=== PATIENT | male | born 1975 | race Caucasian/White ===

== ENCOUNTER 2021-10-15 10:49 | Day surgery (SDC) | payer OTHER, SELFPAY ==
[2021-10-15 11:24] VITALS: BP 146/91; PULSE 74; RESP 16; TEMP 37.1; O2SAT 98; BMI 44.4
[2021-10-15] MEDS: Lactated Ringers 1,000 ML 15 ML IV (11:27)
--- NOTE | 2021-10-15 12:00 | COLBX_PTH ---
PATIENT: CHING ZACARIAS LOC: EN U#:[id number] AGE/SX: 45/M ROOM: RE10/15/[address]: Dr. Elier Hernandez MD : 1975 BED: DIS: 10/15/2021 SPEC #: [id number] RECD: 10/15/21 13:49 STATUS: CATY RESamira #: [id number] MEAGHAN: 10/15/21 12:[address]: Elier Hernandez DEPT: SURGICAL PATHOLOGY RECD BY: Shivani Eden ENTERED: 10/15/21 14:02 SP TYPE: COLON BX OTHR DR: Dr. Delaney Nunez, Tissues: Ascending colon Procedures: Surgery Specimen Level IV HEADER OPERATION: Colonoscopy (MAC) Polypectomy PRE-OP DIAGNOSIS: Colon Cancer Screening TISSUE SUBMITTED: Ascending colon polyp MICROSCOPIC DIAGNOSIS Ascending colon polyp, polypectomy: Tubular adenoma. Fragments of fecal material. SJ:brent 10/16/2021 MICROSCOPIC DESCRIPTION Slides are reviewed. GROSS DESCRIPTION Received in fixative is one container labeled with the patient's name and designated ascending colon polyp. The specimen consists of a fragment of kennedy-pink polyp measuring 0.5 x 0.5 x 0.3 cm. Also present in the container are multiple fragments of fecal material. The specimen is totally submitted in one cassette. / SJ:rg 10/15/2021 TC:1 CPT: 03064
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
[2021-10-15 13:00] VITALS: BP 122/80; BP 146/91; PULSE 73; RESP 18; TEMP 36.6; O2SAT 97
--- NOTE | 2021-10-15 13:00 | OP.CCLET_ITS ---
10/15/2021 Delaney Nunez [address] [place] [address] Re : Colonoscopy procedure for Moustapha Mello Dear Dr. Nunez This procedure was performed on Friday, October 15, 2021. My impressions and recommendations are as follows: Impressions : - One 5 mm polyp in the ascending colon, removed with a hot snare. Resected and retrieved. - Non-bleeding internal hemorrhoids. - The examination was otherwise normal. Recommendations : - Patient has a contact number available for emergencies. The signs and symptoms of potential delayed complications were discussed with the patient. Return to normal activities tomorrow. Written discharge instructions were provided to the patient. - Resume previous diet. - Continue present medications. - Await pathology results. - Repeat colonoscopy in 5 years for surveillance. - Return to nurse practitioner in 1 week. My findings are described in the full procedure note, which is enclosed. If I can be of further assistance, please feel free to contact me at Doctor phone number(s): , Work: . Sincerely, MD Elier Alba MD 10/15/2021 1:00:01 PM This report has been signed electronically.
--- NOTE | 2021-10-15 13:00 | OP.COLON_ITS ---
Patient Name: Moustapha Mello Procedure Date: 10/15/2021 11:47 AM Date of : 1975 Age: 45 Procedure: Colonoscopy Indications: Screening for colorectal malignant neoplasm Providers: Elier Hernandez MD Medicines: See the Anesthesia note for documentation of the administered medications Patient Profile: This is a 45 year old male. Refer to note in patient chart for documentation of history and physical. Last Colonoscopy: 2006. Complications: No immediate complications. Estimated blood loss: None. Procedure: Pre-Anesthesia Assessment: - Prior to the procedure, a History and Physical was performed, and patient medications and allergies were reviewed. The patient's tolerance of previous anesthesia was also reviewed. The risks and benefits of the procedure and the sedation options and risks were discussed with the patient. All questions were answered, and informed consent was obtained. Prior Anticoagulants: The patient has taken no previous anticoagulant or antiplatelet agents. ASA Grade Assessment: III - A patient with severe systemic disease. After reviewing the risks and benefits, the patient was deemed in satisfactory condition to undergo the procedure. After I obtained informed consent, the scope was passed under direct vision. Throughout the procedure, the patient's blood pressure, pulse, and oxygen saturations were monitored continuously. The adult colonoscope was introduced through the anus and advanced to the cecum, identified by appendiceal orifice and ileocecal valve. The colonoscopy was performed without difficulty. The patient tolerated the procedure well. The quality of the bowel preparation was good. The ileocecal valve, appendiceal orifice, and rectum were photographed. Scope In: 12:43:28 PM Scope Withdrawal Time 0 hours 8 minutes 58 seconds Scope Out: 12:55:34 PM Total Procedure Duration Time 0 hours 12 minutes 6 seconds Findings: A 5 mm polyp was found in the ascending colon. The polyp was sessile. The polyp was removed with a hot snare. Resection and retrieval were complete. Non-bleeding internal hemorrhoids were found during retroflexion. The hemorrhoids were mild and small. The exam was otherwise without abnormality. Impression: - One 5 mm polyp in the ascending colon, removed with a hot snare. Resected and retrieved. - Non-bleeding internal hemorrhoids. - The examination was otherwise normal. Recommendation: - Patient has a contact number available for emergencies. The signs and symptoms of potential delayed complications were discussed with the patient. Return to normal activities tomorrow. Written discharge instructions were provided to the patient. - Resume previous diet. - Continue present medications. - Await pathology results. - Repeat colonoscopy in 5 years for surveillance. - Return to nurse practitioner in 1 week. Procedure Code(s): --- Professional --- 33479, Colonoscopy, flexible; with removal of tumor(s), polyp(s), or other lesion(s) by snare technique Diagnosis Code(s): --- Professional --- Z12.11, Encounter for screening for malignant neoplasm of colon D12.2, Benign neoplasm of ascending colon K64.8, Other hemorrhoids CPT copyright 2017 [employer]. All rights reserved. The codes documented in this report are preliminary and upon manager paper review may be revised to meet current compliance requirements. MD Elier Alba MD 10/15/2021 1:00:01 PM This report has been signed electronically. Number of Addenda: 0 Note Initiated On: 10/15/2021 11:47 AM
[2021-10-15 13:05] VITALS: BP 114/79; BP 146/91; PULSE 68; RESP 16; O2SAT 95
[2021-10-15 13:10] VITALS: BP 130/86; BP 146/91; PULSE 73; RESP 16; O2SAT 99
[2021-10-15 13:15] VITALS: BP 129/83; BP 146/91; PULSE 65; RESP 16; TEMP 36.6; O2SAT 99
[2021-10-15 13:38] VITALS: BP 146/91
== END 2021-10-15 13:58 | disposition home or self-care (01) ==
LOC: EN 10:55 → AC 10:57
PROVIDERS: PCP Internal Medicine; Referring Provider Internal Medicine; Visit Provider Surgery
PROC: 0DJD8ZZ Inspection of Lower Intestinal Tract, Via Natural or Artificial Opening Endoscopic (ICD-10-PCS; CPT 45378; principal; 2021-10-15 11:55)
DX: Z12.11 Encounter for screening for malignant neoplasm of colon (principal); E66.01 Morbid (severe) obesity due to excess calories; Z68.41 Body mass index [BMI] 40.0-44.9, adult; D12.2 Benign neoplasm of ascending colon; K64.8 Other hemorrhoids; Z86.16 Personal history of COVID-19
CPT/HCPCS: 45385; 87426; 88305; J7120; J2405

== ENCOUNTER 2024-06-03 13:13 | Inpatient (IN) | payer OTHER, SELFPAY ==
[2024-06-03] VITALS (11 sets, daily range): BP systolic 129–191; BP diastolic 82–116; PULSE 73–109; RESP 13–20; TEMP 36.6–36.9; O2SAT 93–100; BMI 49.2; BMI 48.0
--- NOTE | 2024-06-03 13:25 | RAD_ITS ---
STUDY: X-RAY - RIGHT FEMUR REASON FOR STUDY: Male, 48 years old. fall TECHNIQUE: 4 view(s) of the femur. COMPARISON: None. FINDINGS: Normal visualized femur. Normal visualized soft tissue structure. There is no demonstrated fracture or destructive process. RAD/Femur Min 2 Views IMPRESSION: Normal x-ray examination of the femur. Electronically Signed: Vic Jacobsen MD at 15:26 EST ,
--- NOTE | 2024-06-03 13:25 | CT_ITS ---
STUDY: CT CERVICAL SPINE WITHOUT CONTRAST REASON FOR EXAM: Male, 48 years old. fall PT WAS ON A LADDER WHEN IT SLID OUT FROM UNDER HIM. PT C/O R HIP AND LOWER BACK PAIN. RADIATION DOSAGE (If Supplied By Facility): CTDIvol = ( 41.30 ) mGy, DLP = ( 1030.30 ) mGycm TECHNIQUE: High resolution transaxial imaging was performed without contrast material. Sagittal and coronal images were reconstructed. Individualized dose optimization techniques were used for this CT. COMPARISON: None FINDINGS: Normal craniovertebral junction. Normal anterior atlantoaxial articulation. Normal odontoid process. There is reversal of the normal cervical lordosis. No demonstrated fracture or compression deformity or displaced fragment. No demonstrated jumped facets. Moderate to severe multilevel degenerative changes are present. Severe central canal stenosis and cord compression at C5-C6 due to a prominent posterior disc osteophyte complex. Normal visualized soft tissue structures. CT/Spine Cervical without Contras IMPRESSION: Multilevel degenerative changes, as described above. Electronically Signed: Vic Jacobsen MD at 15:24 EST Reading Location ID and State: [address] [place] [address] , Service support ,
--- NOTE | 2024-06-03 13:25 | CT_ITS ---
STUDY: CT CHEST, ABDOMEN T PELVIS WITH CONTRAST REASON FOR EXAM: Male, 48 years old. trauma PT WAS ON A LADDER WHEN IT SLID OUT FROM UNDER HIM. PT C/O R HIP AND LOWER BACK PAIN. RADIATION DOSAGE (If Supplied By Facility): CTDIvol = ( 51.57 ) mGy, DLP = ( 3371.28 ) mGycm TECHNIQUE: Transaxial imaging was performed following intravenous administration of IV 100mL Isovue-370. The protocol utilizes one or more of the following dose reduction techniques: automated exposure control, adjustment of mA and/or kV according to patient size,and/or use of iterative reconstruction technique. COMPARISON: FINDINGS: CHEST No visualized sternal or displaced rib fractures or pneumothorax or consolidation. Mild diffuse groundglass edema is present bilaterally. No pleural effusion is present.. There is no demonstrated pleural abnormality. Normal heart and pericardium. No demonstrated calcifications of the coronary arteries. Normal mediastinum. Normal hilar regions. Normal unenhanced pulmonary arteries. There is atherosclerotic calcification of the aortic arch with tortuosity and elongation of the aortic arch and descending thoracic aorta. There are multi-level degenerative changes of the thoracic spine. ABDOMEN No visualized acute injury of the organs. No free air or free fluid or pneumoperitoneum is present. There is decreased attenuation of the liver consistent with steatosis. Normal gallbladder and extrahepatic biliary system. Normal spleen. Normal pancreas. Normal bilateral adrenal glands. Normal right kidney. Normal left kidney. Normal visualized stomach. Normal small intestine. There are multiple colonic diverticula consistent with diverticulosis. The appendix is visualized and appears normal. Normal abdominal aorta. Normal inferior vena cava. Normal retroperitoneum. Normal abdominal wall. There are diffuse degenerative changes of the visualized lumbar spine. PELVIS Normal urinary bladder. Normal visualized small intestine. Normal visualized colon. There is no pelvic fluid. There is no pelvic lymphadenopathy or mass lesion. Normal visualized pelvic arteries. No visualized fracture of the hips or pelvic bony structures. Normal abdominal wall. There are diffuse degenerative changes of the visualized lumbar spine. CT/CT Chest, Abd, Pel w/Contrast IMPRESSION: 1. Chest: Mild diffuse groundglass edema. No consolidation or pneumothorax. 2. Abdomen and pelvis: No visualized acute injury of the organs. No free air or free fluid or pneumoperitoneum is present. Electronically Signed: Vic Jacobsen MD at 15:08 EST ,
--- NOTE | 2024-06-03 13:25 | CT_ITS ---
STUDY: CT BRAIN WITHOUT CONTRAST REASON FOR EXAM: Male, 48 years old. PT WAS ON A LADDER WHEN IT SLID OUT FROM UNDER HIM. PT C/O R HIP AND LOWER BACK PAIN. RADIATION DOSAGE (If Supplied By Facility): CTDIvol = ( 44.99 ) mGy, DLP = ( 846.73 ) mGycm TECHNIQUE: Transaxial CT imaging of the brain was performed without administration of intravenous contrast material. Individualized dose optimization techniques were used for this CT. COMPARISON: None. FINDINGS: No visualized skull fracture or subdural hemorrhage. Prominent cisterna magna which is a normal variant. No visualized extra-axial fluid collection. Normal soft tissue structures. Normal calvarium. Normal size ventricles and extra-axial spaces for the patient''s age. Normal white matter tracts of the cerebral hemispheres. Normal basal ganglia and thalami. Normal brainstem. There is mild cerebellar atrophy. There is no intracranial hemorrhage. There are no findings of an acute ischemic infarction. Normal visualized paranasal sinuses. CT/Brain/Head without Contrast IMPRESSION: 1. No acute process of the brain. Electronically Signed: Vic Jacobsen MD at 15:12 [facility] ,
--- NOTE | 2024-06-03 13:28 | EDS_ITS ---
HPI History of Present Illness Chief Complaint: Trauma Detail of Chief Complaint: Fall off ladder Informant: patient Narrative Narrative: Patient presents the emergency department after falling off of a ladder today. He presents via EMS. Patient states that he was near the top of the ladder getting on a roof when he fell off the ladder and kind of landed with his right leg between the rungs of the ladder. He denies loss of consciousness. He complains of pain in his low back and right upper leg. He is not on blood thinners. He has no medical history. He denies neck pain. Denies chest pain. Does have some mild abdominal pain. PFSH PFSH Medical History Alcohol use CPAP (continuous positive airway pressure) dependence Non-smoker Home Medications ?Medication ?Instructions ?Recorded ?Last Taken ?Type ascorbic acid (vitamin C) 500 mg 500 mg PO DAILY 06/03/24 06/03/24 History chewable tablet (Acerola C) hydrocodone-acetaminophen 5-325mg 1 tab PO Q4H PRN PRN Pain 2 days 06/03/24 Unknown Rx 5mg-325mg #10 TABLETS naproxen 500 mg tablet (Naprosyn) 500 mg PO BID PRN pain #20 tabs 06/03/24 Un known Rx Allergy/AdvReac Type Severity Reaction Status Date / Time Penicillins (PCN) Allergy Other Verified 10/15/21 11:24 Surgical History (Updated 10/11/21 @ 11:52 by Abbey Trinh) Hx of colonoscopy Hx of appendectomy Social History Smoking Status: Never smoker ROS ROS ED Review of Systems ROS Unobtainable: other Constitutional Constitutional ED: Reports lethargy; Denies chills, fever(s), sweats or weight loss Eyes Eyes: Denies blurry vision, change in vision or diplopia ENT ENT ED: Denies rhinorrhea or sore throat Cardiovascular Cardiovascular: Denies chest pain, orthopnea or racing heartbeat Respiratory/Chest Respiratory/Chest: Denies cough, dyspnea, dyspnea on exertion, orthopnea or sputum Gastrointestinal Gastrointestinal: Reports abdominal pain; Denies diarrhea, nausea or vomiting Genitourinary Genitourinary ED: Denies dysuria, hematuria or urinary frequency Musculoskeletal Musculoskeletal: Reports back pain and other Details: Right upper leg pain ; Denies arthralgias, myalgias or neck pain Integumentary Denies abscess, Abrasions or rash Neurologic Neurologic: Denies headache(s) or weakness Psychiatric Psychiatric: Denies anxiety, depression or suicidal thoughts Endocrine Endocrinology: Denies polydipsia, polyphagia or polyuria Hematologic/Lymphatic Hematologic/Lymphatic: Denies easy bleeding, easy bruising or lymphadenopathy Allergic/Immunologic Allergic/Immunologic ED: Denies mouth swelling, tongue swelling or urticaria EXAM Physical Exam Const Vital Signs: 06/03/24 13:24 06/03/24 13:29 06/03/24 14:49 Temperature 97.9 F Temperature Source Oral Pulse Rate 92 88 Respiratory Rate 16 20 H Respiratory Effort Normal Non-Labored Respiratory Depth Normal Respiratory Pattern Normal Blood Pressure 143/90 H 160/94 H Blood Pressure Mean 107 116 Pulse Ox 96 96 98 Oxygen Delivery Method Room Air Room Air Room Air 06/03/24 15:12 Temperature Temperature Source Pulse Rate 73 Respiratory Rate 13 Respiratory Effort Respiratory Depth Respiratory Pattern Blood Pressure 191/116 H Blood Pressure Mean 141 Pulse Ox 97 Oxygen Delivery Method Room Air Positive well nourished and well developed General Appearance ED: well developed and NAD HEENT Reports TM's clear and moist mucous membranes HEENT Narrative: No external evidence of trauma to his head. normocephalic and atraumatic; Negative for trauma or tenderness Tympanic Membrane ED: Yes TM's clear Eyes PERRL and EOMs intact bilaterally General Eye ED: Negative for pale conjunctiva or scleral icterus Neck no lymphadenopathy, supple and no JVD General: Negative for tenderness Chest Wall inspection of chest normal and palpation of chest normal Chest: Negative for tenderness Resp normal respiratory effort and clear to auscultation bilaterally Effort and Inspection: Negative for respiratory distress or pain with movement Auscultation: Negative for rhonchi, wheezes or diminished lung sounds Cardio regular rate, regular rhythm, S1 normal heart sound, S2 normal heart sound and no murmurs Peripheral Pulses: pulses 2+ throughout GI normal to inspection, nondistended, normoactive bowel sounds, soft to palpation, non-distended and no masses GI Narrative: Mild diffuse tenderness. There is no rebound, rigidity, peritoneal signs. No mass palpated Back/Spine no CVA tenderness and no thoracic nor lumbar tenderness Extremity Extremity Narrative: Right lower extremity-there is no shortening or external rotation. Does have pain to palpation over the right hip and proximal femur. Neurovascular intact distally. General Extremety ED: Negative for edema General Extremity: Negative for edema Neuro oriented x3, CN's II-XII intact bilaterally, no sensory deficits noted and gait normal Sensorium / Orientation: awake, alert, oriented to person, oriented to place and oriented to time Motor Exam: strength 5/5 throughout and strength abnormal Psych mental status grossly normal Skin no rashes or lesions noted and no wounds MDM MDM MDM Narrative Medical decision making narrative: Patient with fall off ladder about 8 to 10 feet. Complaining of right low back pain and right upper leg pain. Clinically looks well. No significant evidence of trauma. CT scan of the brain without contrast was unremarkable. CT scan of C-spine showed degenerative changes but no fractures. CT scan of the chest abdomen pelvis also without any evidence for traumatic injuries. CBC with differential count 11.8 with hemoglobin 15.5 and platelet count of 307. Chemistries unremarkable. LFTs were normal. Lipase normal at 31. Patient was medicated initially with morphine and Zofran. Once all testing was returned I did have patient's stand. He is continue to have pain in his right low back and right upper leg. I do not appreciate any evidence of ecchymosis or bruising or hematomas. Will give him another dose of morphine. Will discharge to home with a prescription for [place]. Advised to follow-up with primary care physician within the next 3 to 5 days. Will give him referral to no doc. after attempting to ambulate patient he is having a hard time bearing any weight and ambulating. Patient does not feel like he can manage at home and currently lives alone as his recently . Will discuss with hospitalist to admit for observation and pain management. Lab Data Attestation: I reviewed the patient's lab results. Labs: Laboratory Results - last 24 hr 06/03/24 13:40 WBC 11.8 H RBC 5.21 Hgb 15.5 Hct 45.7 MCV 87.7 MCH 29.8 MCHC 33.9 RDW Std Deviation 39.3 RDW Coeff of Manuelito 12.3 Plt Count 307 MPV 8.8 Immature Gran % (Auto) 2.300 H Neut % (Auto) 74.5 H Lymph % (Auto) 15.0 L Centre % (Auto) 7.4 Eos % (Auto) 0.3 Baso % (Auto) 0.5 Absolute Neuts (auto) 8.8 H Absolute Lymphs (auto) 1.76 Nucleated RBC % 0 Sodium 137 Potassium 4.4 Chloride 106 Carbon Dioxide 27.0 Anion Gap 4 L BUN 10 Creatinine 0.92 Estim Creat Clear Calc 165.11 Est GFR (MDRD) Af Amer 112 Est GFR (MDRD) Non-Af 93 BUN/Creatinine Ratio 10.8 Glucose 110 H Calcium 9.5 Total Bilirubin 0.30 AST 28 ALT 45 Alkaline Phosphatase 55 Total Protein 7.4 Albumin 3.6 Globulin 3.8 Albumin/Globulin Ratio 0.9 Lipase 31 Radiography Diagnostic Testing: Clinical Impression(s) from Imaging Studies Brain CT 06/03/24 13:25 IMPRESSION: 1. No acute process of the brain. Electronically Signed: Vic Jacobsen MD at 15:12 EST Reading Location ID and State: [[employer] / [place] , Service support , Cervical Spine CT 06/03/24 13:25 IMPRESSION: Multilevel degenerative changes, as described above. Electronically Signed: Vic Jacobsen MD at 15:24 EST Reading Location ID and State: [[employer] [place] , Service support , Chest/Abdomen/Pelvis CT 06/03/24 13:25 IMPRESSION: 1. Chest: Mild diffuse groundglass edema. No consolidation or pneumothorax. 2. Abdomen and pelvis: No visualized acute injury of the organs. No free air or free fluid or pneumoperitoneum is present. Electronically Signed: Vic Jacobsen MD at 15:08 EST Reading Location ID and State: [[employer] [place] , Service support , Femur X-Ray 06/03/24 13:25 IMPRESSION: Normal x-ray examination of the femur. Electronically Signed: Vic Jacobsen MD at 15:26 EST Reading Location ID and State: [id number] [address] [employer] , Service support , 2 view x-rays of the right femur obtained interpreted by myself as no evidence of fracture or dislocation. Radiology in agreement. Discharge Plan Dx/Rx/DC Orders Clinical Impression: Fall, Back contusion, Contusion of hip, right Disposition Disposition: Acute Care Hospital [facility]
[2024-06-03 13:48] LABS: Absolute Lymphocyte Count 1.76 X10^3/uL (0.83-4.51); Absolute Neutrophil Count 8.8 X10^3/uL (2.0-7.7); Basophil# 0.06 X10^3/uL; Basophil% 0.5 % (0-1); Eosinophil# 0.04 X10^3/uL; Eosinophils% 0.3 % (0-5); Hematocrit 45.7 % (40-54); Hemoglobin 15.5 g/dL (13.0-16.5); Lymphocyte # 1.76 X10^3/ul (0.83-4.51); Mean Corp Hgb Conc 33.9 g/dL (32-36); Mean Corpuscular Hgb 29.8 pg (27.0-32.0); Mean Corpuscular Volume 87.7 fL (80-94); Mean Platelet Vol. 8.8 fl (6.2-12.0); Monocyte# 0.87 X10^3/uL; Monocyte% 7.4 % (0-10); NRBC Flagged by Analyzer 0 % (0-5); Neutrophil # 8.77 X10^3/uL (2.7-7.7); Neutrophil % 74.5 % (47-70); Platelet Count 307 K/mm3 (150-450); RBC Distribution Width CV 12.3 % (11.6-14.6); RBC Distribution Width SD 39.3 fl (35.1-43.9); Red Blood Count 5.21 M/mm3 (4.6-6.2); White Blood Count 11.8 K/mm3 (4.4-11.0)
[2024-06-03] MEDS: 0.9% Normal Saline (1000mL) 1,000 ML 1000 ML IV (13:48)
[2024-06-03] MEDS: Ondansetron 4 MG/2 ML Vial IV (13:50)
[2024-06-03] MEDS: Morphine 4 MG/ML Syringe IV ×2 (13:50→15:57)
[2024-06-03 14:02] LABS: ALB/GLOB Ratio 0.9 RATIO (0.9-2.4); AST(SGOT) 28 U/L (15-37); Alanine Aminotransfer ALT/SGPT 45 U/L (16-61); Albumin, Serum 3.6 g/dL (3.2-5.0); Alkaline Phosphatase 55 U/L (45-117); Anion Gap 4 (5-15); BUN 10 mg/dL (7-18); BUN/Creat Ratio 10.8 RATIO (10-20); Calcium,Total 9.5 mg/dL (8.5-10.1); Chloride 106 mmol/L (98-107); Creatinine, Serum 0.92 mg/dL (0.70-1.30); EST Glomerular Filtration Rate 93 mL/min (>60); Est Glom Filt Rate - Afr Amer 112 mL/min (>60); Estimated Creatinine Clearance 165.11 ml/min; Globulin 3.8 g/dL (2.2-4.2); Glucose 110 mg/dL (74-106); Lipase 31 U/L (13-75); Potassium 4.4 mmol/L (3.5-5.1); Protein, Total 7.4 g/dL (6.4-8.2); Sodium Level 137 mmol/L (136-145)
--- NOTE | 2024-06-03 16:46 | PCM.HP.STD ---
HPI - General General Date of Admission: 06/03/24 Date of Service: 06/03/24 Chief Complaint: Pain after fall HPI Narrative CHING ZACARIAS, is a 48 M with no significant past medical history who presented to [facility] ED 06/03/2024 after falling off of a ladder. He fell roughly 8 feet when he and stepped onto the roof but the ladder slipped out from under him and he subsequently fell on the ladder, all of his scans were normal however due to pain and difficulty ambulating hospitalist contacted for admission for pain control and physical therapy. Patient evaluated at bedside and reports history as above, he does have some right sided back pain and pain into right leg. Had had a little bit of tingling in his toes but none at this time. Does have difficulty moving due to that. Contacted orthospine and CT scan appears to have L3 superior endplate fracture however it is unclear the chronicity of this. Plan to treat with conservative management and will obtain MRI. Patient is ROS otherwise completely negative [facility] Medical History Alcohol use CPAP (continuous positive airway pressure) dependence Non-smoker Home Medications ?Medication ?Instructions ?Recorded ?Last Taken ?Type ascorbic acid (vitamin C) 500 mg 500 mg PO DAILY 06/03/24 06/03/24 History chewable tablet (Acerola C) hydrocodone-acetaminophen 5-325mg 1 tab PO Q4H PRN PRN Pain 2 days 06/03/24 Unknown Rx 5mg-325mg #10 TABLETS naproxen 500 mg tablet (Naprosyn) 500 mg PO BID PRN pain #20 tabs 06/03/24 Unknown Rx Allergy/AdvReac Type Severity Reaction Status Date / Time Penicillins (PCN) Allergy Other Verified 10/15/21 11:24 Surgical History (Updated 10/11/21 @ 11:52 by Abbey Trinh) Hx of appendectomy Hx of colonoscopy Social History Smoking Status: Never smoker ROS ROS Narrative General: Denies fever/chills HENT: Denies headache, denies stuffy nose, denies sore throat EYES: Denies changes in vision Resp: Denies cough, denies shortness of breath Cardiac: Denies chest pain GI: Denies abdominal pain, denies changes in bowel, denies nausea/vomiting : Denies changes in urination Extremity: Denies swelling MSK: Some low back pain and right leg Neuro: Denies any numbness/tingling at this time Heme: Denies any bleeding or bruising Skin: Denies rashes Psychiatric: No complaints voiced Vital Signs Vital Signs Vital Signs: 06/03/24 13:24 06/03/24 13:29 06/03/24 14:49 Temperature 97.9 F Temperature Source Oral Pulse Rate 92 88 Respiratory Rate 16 20 H Respiratory Effort Normal Non-Labored Respiratory Depth Normal Respiratory Pattern Normal Blood Pressure 143/90 H 160/94 H Blood Pressure Mean 107 116 Pulse Ox 96 96 98 Oxygen Delivery Method Room Air Room Air Room Air 06/03/24 15:12 06/03/24 16:00 Temperature 98.2 F Temperature Source Pulse Rate 73 109 H Respiratory Rate 13 18 Respiratory Effort Respiratory Depth Respiratory Pattern Blood Pressure 191/116 H 160/90 H Blood Pressure Mean 141 113 Pulse Ox 97 100 Oxygen Delivery Method Room Air Weight Weight: 173.9 kg Body Mass Index (BMI) 49.2 Physical Exam Narrative General: Alert, oriented, no apparent distress HEENT: Atraumatic, normocephalic Eyes: Anicteric, normal conjunctiva, extraocular movements grossly intact Neck: Supple Respiratory: Clear to auscultation bilaterally, normal respiratory effort Cardiovascular: Regular rate and rhythm GI: Soft, nontender, nondistended Extremities: No edema Musculoskeletal: Patient able to rotate leg on the right both ways and can flex at the hip however somewhat limited due to pain. Unable to palpate lumbar spine as patient had difficulty sitting up in bed to allow this due to pain Neuro: No overt focal neurological deficits on my exam Skin: No rashes appreciated Psych: Cooperative Results Lab / Micro Data 06/03/24 13:40 06/03/24 13:40 Labs: Laboratory Results - last 24 hr 06/03/24 13:40: WBC 11.8 H, RBC 5.21, Hgb 15.5, Hct 45.7, MCV 87.7, MCH 29.8, MCHC 33.9, RDW Std Deviation 39.3, RDW Coeff of Manuelito 12.3, Plt Count 307, MPV 8.8, Immature Gran % (Auto) 2.300 H, Neut % (Auto) 74.5 H, Lymph % (Auto) 15.0 L, [place] % (Auto) 7.4, Eos % (Auto) 0.3, Baso % (Auto) 0.5, Absolute Neuts (auto) 8.8 H, Absolute Lymphs (auto) 1.76, Nucleated RBC % 0, Sodium 137, Potassium 4.4, Chloride 106, Carbon Dioxide 27.0, Anion Gap 4 L, BUN 10, Creatinine 0.92, Estim Creat Clear Calc 165.11, Est GFR (MDRD) Af Amer 112, Est GFR (MDRD) Non-Af 93, BUN/Creatinine Ratio 10.8, Glucose 110 H, Calcium 9.5, Total Bilirubin 0.30, AST 28, ALT 45, Alkaline Phosphatase 55, Total Protein 7.4, Albumin 3.6, Globulin 3.8, Albumin/Globulin Ratio 0.9, Lipase 31 Imaging Radiology Impression Brain CT 06/03/24 13:25 IMPRESSION: 1. No acute process of the brain. Electronically Signed: Vic Jacobsen MD at 15:12 EST Reading Location ID and State: [facility] / [place] , Service support , Cervical Spine CT 06/03/24 13:25 IMPRESSION: Multilevel degenerative changes, as described above. Electronically Signed: iVc Jacobsen MD at 15:24 EST , Chest/Abdomen/Pelvis CT 06/03/24 13:25 IMPRESSION: 1. Chest: Mild diffuse groundglass edema. No consolidation or pneumothorax. 2. Abdomen and pelvis: No visualized acute injury of the organs. No free air or free fluid or pneumoperitoneum is present. Electronically Signed: Vic Jacobsen MD at 15:08 EST , Femur X-Ray 06/03/24 13:25 IMPRESSION: Normal x-ray examination of the femur. Electronically Signed: Vic Jacobsen MD at 15:26 EST , Assessment & Plan Assessment/Plan (1) Fall: PLAN: Plan #Fall w/ back pain -Patient status post fall off of ladder with some back pain worse on the right -Review of CT chest/abdomen/pelvis appears to possibly have an L3 superior endplate fracture however it is unclear if this is new or old -Will obtain MRI tomorrow -Supportive care, pain control -Lidocaine patch -PT/OT -Case management #Morbid obesity -BMI documented as 49.2 kg/m? at time of admission -Complicates treatment, prognosis, outcomes -Recommend weight loss and lifestyle changes #DVT ppx: SCDS Cristela Cifuentes MD Time spent in the patient's overall evaluation, decision-making process, review of diagnostic data, adjustment of management, discussion with other providers, nursing and ancillary staff involved in patient's care documentation, 61 Minutes Charges/Coding Visit Charges Inpatient E&M: 92456 Init Hosp L2
[2024-06-03] MEDS: Ketorolac 15 MG/ML Vial IV (17:18)
[2024-06-03] MEDS: HYDROmorphone 1 MG/ML Syringe IV ×3 (17:19→21:56)
--- NOTE | 2024-06-03 17:38 | ED.RN ---
Pt having increased pain, unable to sit on edge of bed or even attempt to bear weight. Pt states he is unable to lift right leg, unsure if inability is from pain. ED MD and hospitalist made aware, pt will go to [facility] [place].
--- NOTE | 2024-06-03 17:44 | MRI_ITS ---
ACR Level 3 findings have been noted. An addendum which confirms receipt of the report will follow. EXAM: MR LUMBAR SPINE WITHOUT INTRAVENOUS CONTRAST CLINICAL INDICATION: Back pain after fall TECHNIQUE: Multiplanar and multisequence MR images of the lumbar spine without intravenous contrast. COMPARISON: CT Chest abdomen pelvis on the same date. FINDINGS: VERTEBRAE: There is an acute superior endplate compression fracture of L3 as better demonstrated on comparison CT. Associated marrow enhancement. No retropulsion of the posterior cortex and no significant signal abnormality in the pedicle/posterior elements. Less than 25% vertebral body height loss. L2 superior endplate compression fracture with less than 25% vertebral body height loss. Edema indicates that this is acute. No retropulsion of the posterior cortex or involvement of the pedicle/posterior elements. L1 superior endplate compression deformity without edema is felt to be chronic. Less than 25% vertebral body height loss. Prominent Schmorl''s node at the superior endplate of L1. 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 There is preservation of the normal lumbar lordosis. SPINAL CORD: No significant abnormality. Normal position and signal intensity of the conus medullaris. SOFT TISSUES: No significant abnormality. DISCS/SPINAL CANAL/NEURAL FORAMINA: T12-L1: Disc bulge and mild bilateral facet arthrosis. No significant spinal canal or neural foraminal stenosis. L1-L2: Disc bulge with superimposed right central disc herniation and moderate bilateral facet arthrosis. Moderate spinal canal stenosis is exacerbated by mass effect upon the thecal sac due to epidural fat. Mild bilateral neural foraminal narrowing. L2-L3: Mild spinal canal stenosis in part due to a disc bulge, facet arthrosis, and prominent epidural fat. No significant neural foraminal narrowing. L3-L4: L3-4: Disc bulge and severe bilateral facet arthrosis. Mild spinal canal stenosis and mild bilateral neural foraminal narrowing. L4-L5: Disc bulge and superimposed central disc herniation with moderate facet arthrosis and ligamentum flavum thickening. Moderate to severe stenosis of the thecal sac and overall mild spinal canal narrowing. Moderate left and mild right neural foraminal stenosis. Apparent impingement of the bilateral traversing L5 nerve roots. L5-S1: Severe bilateral facet arthrosis and disc bulge with superimposed right foraminal to extraforaminal disc herniation. Mild spinal canal stenosis and mild right greater than left neural foraminal narrowing. MRI/Spine Lumbar (Routine) IMPRESSION: 1. There is an acute superior endplate compression fracture of L3 as better demonstrated on comparison CT. Associated marrow enhancement. No retropulsion of the posterior cortex and no significant signal abnormality in the pedicle/posterior elements. Less than 25% vertebral body height loss. 2. L2 superior endplate compression fracture with less than 25% vertebral body height loss. Edema indicates that this is acute. No retropulsion of the posterior cortex or involvement of the pedicle/posterior elements. 3. L1 superior endplate compression deformity without edema is felt to be chronic. Less than 25% vertebral body height loss. Prominent Schmorl''s node at the superior endplate of L1. 4. Multilevel degenerative changes in the lumbar spine resulting in spinal canal and neural foraminal stenosis at multiple levels exacerbated by epidural lipomatosis. Bilateral L5 nerve root impingement. 5. 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 Electronically Signed: Aden Savage DO at 20:30 EST ,
[2024-06-03] MEDS: Acetaminophen 500 MG Tablet 1000 MG PO (22:38)
[2024-06-03] MEDS: HYDROmorphone 0.5 MG/0.5 ML SYRINGE IV (23:46)
[2024-06-03] MEDS: 0.9% Saline Lock 10 ML Syringe IV (23:47)
[2024-06-04] MEDS: 0.9% Saline Lock 10 ML Syringe IV ×2 (03:18→12:00)
[2024-06-04] MEDS: Ketorolac 30 MG/ML Syringe IV ×3 (03:18→17:44)
[2024-06-04 03:23] VITALS: BP 127/79; PULSE 91; RESP 16; TEMP 36.6; O2SAT 97
[2024-06-04] MEDS: oxyCODONE 5 MG Tablet PO ×4 (05:41→21:36)
[2024-06-04] MEDS: Acetaminophen 500 MG Tablet 1000 MG PO ×3 (05:42→21:24)
[2024-06-04 05:58] LABS: Absolute Lymphocyte Count 1.86 X10^3/uL (0.83-4.51); Absolute Neutrophil Count 8.8 X10^3/uL (2.0-7.7); Basophil# 0.03 X10^3/uL; Basophil% 0.3 % (0-1); Eosinophil# 0.02 X10^3/uL; Eosinophils% 0.2 % (0-5); Hematocrit 41.6 % (40-54); Hemoglobin 13.5 g/dL (13.0-16.5); Lymphocyte # 1.86 X10^3/ul (0.83-4.51); Lymphocyte % 15.7 % (19-41); Mean Corp Hgb Conc 32.5 g/dL (32-36); Mean Corpuscular Hgb 28.9 pg (27.0-32.0); Mean Corpuscular Volume 89.1 fL (80-94); Monocyte# 1.03 X10^3/uL; Monocyte% 8.7 % (0-10); NRBC Flagged by Analyzer 0 % (0-5); Neutrophil # 8.83 X10^3/uL (2.7-7.7); Neutrophil % 74.8 % (47-70); Platelet Count 288 K/mm3 (150-450); RBC Distribution Width CV 12.6 % (11.6-14.6); RBC Distribution Width SD 41.1 fl (35.1-43.9); Red Blood Count 4.67 M/mm3 (4.6-6.2); White Blood Count 11.8 K/mm3 (4.4-11.0)
[2024-06-04 06:57] LABS: ALB/GLOB Ratio 0.9 RATIO (0.9-2.4); AST(SGOT) 24 U/L (15-37); Alanine Aminotransfer ALT/SGPT 35 U/L (16-61); Albumin, Serum 3.1 g/dL (3.2-5.0); Alkaline Phosphatase 48 U/L (45-117); Anion Gap 4 (5-15); BUN 12 mg/dL (7-18); BUN/Creat Ratio 13.2 RATIO (10-20); Calcium,Total 8.7 mg/dL (8.5-10.1); Chloride 103 mmol/L (98-107); Creatinine, Serum 0.91 mg/dL (0.70-1.30); EST Glomerular Filtration Rate 94 mL/min (>60); Est Glom Filt Rate - Afr Amer 114 mL/min (>60); Estimated Creatinine Clearance 160.05 ml/min; Globulin 3.4 g/dL (2.2-4.2); Glucose 167 mg/dL (74-106); Potassium 4.3 mmol/L (3.5-5.1); Protein, Total 6.5 g/dL (6.4-8.2); Sodium Level 136 mmol/L (136-145)
[2024-06-04 07:10] VITALS: O2SAT 95
[2024-06-04 09:23] VITALS: BP 145/97; PULSE 90; RESP 17; TEMP 36.4; O2SAT 96
--- NOTE | 2024-06-04 10:27 | PCM.PN.HOSP ---
Reason for Visit Reason for Visit: Diagnoses Contusion of unspecified back wall of thorax, initial encounter (06/03/24) Unspecified fall, initial encounter (06/03/24) Subjective Subjective Saw patient at bedside this morning. Therapy was about to get him out of bed to go to the bathroom when I saw him. He continued to report low back pain, similar yesterday. He has utilized several as needed pain medication overnight with moderate relief of pain. He had not gotten up out of bed yet when I saw him. I discussed the patient's case over the phone with Dr. Landry this morning. Has an acute L3 compression fracture noted on MRI but no nerve impingement or significant loss of height of the vertebra. Does not have any surgical needs at this time. Pain management consulted for further evaluation. Notified patient pain management would see him and he was agreeable with this. Objective Data Objective Data Vital Signs: Vital Signs Temp Pulse Resp BP Pulse Ox O2 Del Method O2 Flow Rate 97.9 F 91 16 127/79 H 95 Nasal Cannula 2 06/04/24 03:23 06/04/24 03:23 06/04/24 03:23 06/04/24 03:23 06/04/24 07:10 06/04/24 07:10 06/04/24 07:10 Oxygen Flow Rate (L/min) 2 Oxygen Delivery Method Nasal Cannula Weight: 165.1 kg Body Mass Index (BMI) 48.0 Intake & Output: Intake and Output for Last 24 Hours 06/02/24 06/03/24 06/04/24 23:59 23:59 23:59 Intake Total 1300 / 1300 1000 / 1000 Output Total 1400 / 1400 Balance 1300 / 850 -400 / -400 Lab / Micro Data 06/04/24 05:04 06/04/24 05:04 Labs: Laboratory Results - last 24 hr 06/03/24 13:40: WBC 11.8 H, RBC 5.21, Hgb 15.5, Hct 45.7, MCV 87.7, MCH 29.8, MCHC 33.9, RDW Std Deviation 39.3, RDW Coeff of Manuelito 12.3, Plt Count 307, MPV 8.8, Immature Gran % (Auto) 2.300 H, Neut % (Auto) 74.5 H, Lymph % (Auto) 15.0 L, [place] % (Auto) 7.4, Eos % (Auto) 0.3, Baso % (Auto) 0.5, Absolute Neuts (auto) 8.8 H, Absolute Lymphs (auto) 1.76, Nucleated RBC % 0, Sodium 137, Potassium 4.4, Chloride 106, Carbon Dioxide 27.0, Anion Gap 4 L, BUN 10, Creatinine 0.92, Estim Creat Clear Calc 165.11, Est GFR (MDRD) Af Amer 112, Est GFR (MDRD) Non-Af 93, BUN/Creatinine Ratio 10.8, Glucose 110 H, Calcium 9.5, Total Bilirubin 0.30, AST 28, ALT 45, Alkaline Phosphatase 55, Total Protein 7.4, Albumin 3.6, Globulin 3.8, Albumin/Globulin Ratio 0.9, Lipase 31 06/04/24 05:04: WBC 11.8 H, RBC 4.67, Hgb 13.5, Hct 41.6, MCV 89.1, MCH 28.9, MCHC 32.5, RDW Std Deviation 41.1, RDW Coeff of Manuelito 12.6, Plt Count 288, MPV 9.0, Immature Gran % (Auto) 0.300, Neut % (Auto) 74.8 H, Lymph % (Auto) 15.7 L, [place] % (Auto) 8.7, Eos % (Auto) 0.2, Baso % (Auto) 0.3, Absolute Neuts (auto) 8.8 H, Absolute Lymphs (auto) 1.86, Nucleated RBC % 0, Sodium 136, Potassium 4.3, Chloride 103, Carbon Dioxide 29.0, Anion Gap 4 L, BUN 12, Creatinine 0.91, Estim Creat Clear Calc 160.05, Est GFR (MDRD) Af Amer 114, Est GFR (MDRD) Non-Af 94, BUN/Creatinine Ratio 13.2, Glucose 167 H, Calcium 8.7, Total Bilirubin 0.60, AST 24, ALT 35, Alkaline Phosphatase 48, Total Protein 6.5, Albumin 3.1 L, Globulin 3.4, Albumin/Globulin Ratio 0.9 Radiography Diagnostic Testing: Radiology Impression Brain CT 06/03/24 13:25 IMPRESSION: 1. No acute process of the brain. Electronically Signed: Vic Jacobsen MD at 15:12 EST , Cervical Spine CT 06/03/24 13:25 IMPRESSION: Multilevel degenerative changes, as described above. Electronically Signed: Vic Jacobsen MD at 15:24 EST Reading Location ID and State: [address] [place] [address] , Service support , Chest/Abdomen/Pelvis CT 06/03/24 13:25 IMPRESSION: 1. Chest: Mild diffuse groundglass edema. No consolidation or pneumothorax. 2. Abdomen and pelvis: No visualized acute injury of the organs. No free air or free fluid or pneumoperitoneum is present. Electronically Signed: Vic Jacobsen MD at 15:08 EST Reading Location ID and State: [address] [place] [address] , Service support , Femur X-Ray 06/03/24 13:25 IMPRESSION: Normal x-ray examination of the femur. Electronically Signed: Vic Jacobsen MD at 15:26 EST , Lumbar Spine MRI 06/03/24 17:44 IMPRESSION: 1. There is an acute superior endplate compression fracture of L3 as better demonstrated on comparison CT. Associated marrow enhancement. No retropulsion of the posterior cortex and no significant signal abnormality in the pedicle/posterior elements. Less than 25% vertebral body height loss. 2. L2 superior endplate compression fracture with less than 25% vertebral body height loss. Edema indicates that this is acute. No retropulsion of the posterior cortex or involvement of the pedicle/posterior elements. 3. L1 superior endplate compression deformity without edema is felt to be chronic. Less than 25% vertebral body height loss. Prominent Schmorl''s node at the superior endplate of L1. 4. Multilevel degenerative changes in the lumbar spine resulting in spinal canal and neural foraminal stenosis at multiple levels exacerbated by epidural lipomatosis. Bilateral L5 nerve root impingement. 5. 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 Electronically Signed: Aden Savage DO at 20:30 EST , ADDENDUM: 06/03/241 IMPRESSION: 1. There is an acute superior endplate compression fracture of L3 as better demonstrated on comparison CT. Associated marrow enhancement. No retropulsion of the posterior cortex and no significant signal abnormality in the pedicle/posterior elements. Less than 25% vertebral body height loss. 2. L2 superior endplate compression fracture with less than 25% vertebral body height loss. Edema indicates that this is acute. No retropulsion of the posterior cortex or involvement of the pedicle/posterior elements. 3. L1 superior endplate compression deformity without edema is felt to be chronic. Less than 25% vertebral body height loss. Prominent Schmorl''s node at the superior endplate of L1. 4. Multilevel degenerative changes in the lumbar spine resulting in spinal canal and neural foraminal stenosis at multiple levels exacerbated by epidural lipomatosis. Bilateral L5 nerve root impingement. 5. 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 N.B. : TANYA TONY RN, confirmed on 06/03/2024 22:14:14 (ET) that the healthcare facility has received the radiology report. Electronically Signed: Aden Savage DO at 20:30 EST , Physical Exam Const alert, oriented x3 and no apparent distress Constitutional Narrative: Middle-age male, class III obesity, mildly fatigued appearing, mildly uncomfortable appearing sitting up in bed but otherwise conversing normally and in no acute distress. General Appearance: cooperative HEENT normocephalic, head/scalp atraumatic, hearing grossly normal bilaterally, nasal mucous membranes and turbinates normal and moist oral mucous membranes Eyes PERRL, EOMs intact bilaterally and conjunctivae normal Neck full ROM Chest inspection of chest normal Resp normal respiratory effort, normal air movement, no use of accessory muscles and clear to auscultation bilaterally Cardio regular rate, regular rhythm, no murmurs and peripheral pulses 2+ throughout GI normal to inspection, nondistended, normoactive bowel sounds, soft to palpation, non-tender and non-distended Back/Spine Back/Spine Narrative: Mild-moderate tenderness to palpation in mid low back with mild paraspinal muscular tenderness. Extremity normal to inspection and no pedal edema Skin no rashes or lesions noted Neuro moves all extremities and no sensory deficits noted Speech: speech normal Psych mental status grossly normal Assessment & Plan Assessment/Plan (1) Lumbar compression fracture: (2) Fall: (3) Debility: PLAN: Plan Patient is a 48-year-old male who presented [facility] ED on 06/03/2024 with low back pain after a fall. 1. Acute L3 compression fracture after fall from ladder with acute debility ? PT/OT/case management following. Patient had fall from the ladder and landed on his back at home. CT brain and C-spine unremarkable. CT chest abdomen pelvis showed no intrathoracic or intra-abdominal issues, did show concern for possible lumbar fracture. MRI lumbar spine showed an acute L3 compression fracture with minimal height loss of vertebra and no nerve issues noted. Discussed with Dr. Landry with orthopedics and no surgical needs at this time. Patient has had significant pain in the low back and difficulty with movement. Pain management consulted, appreciate recommendations. Will continue pain regimen of scheduled Tylenol, lidocaine patch, p.o. oxycodone as needed and IV Dilaudid as needed. Will also give patient 4 doses of IV Toradol 30 mg over the course of today. Will most likely be okay for home on discharge either with home health care or outpatient physical therapy. 2. Class III obesity ? BMI 48 on admit. Encouraged lifestyle modifications. Complicates hospital course, care and prognosis. 3. Acute grief state ? Per patient's sister on admission, patient's recently within the last few weeks. Unclear on the circumstances surrounding this. Will discuss with patient on any needs regarding counseling services he may have on discharge. DVT prophylaxis: SCDs CODE STATUS: DNR CCA, DNI Expected disposition: Home with home health care versus outpatient PT, 1 to 2 days Total clinical time spent by myself addressing the patient's medical issues, reviewing all the data, and collaborating with patient's care team: 35 minutes. Charges/Coding Visit Charges Inpatient E&M: 58123 Subs Hosp L2
[2024-06-04] MEDS: Enoxaparin 40 MG/0.4 ML Syringe SC (11:06)
[2024-06-04] MEDS: Lidocaine 5% Patch 1 PATCH TOPICAL (11:06)
[2024-06-04] MEDS: Senna/Docusate Sodium 1 Tablet 2 TABLET PO ×2 (11:07→21:24)
--- NOTE | 2024-06-04 12:09 | CON.PCM_ITS ---
Assessment & Plan Assessment/Plan (1) Lumbar radiculopathy, acute: (2) Lumbar compression fracture: QUALIFIERS: Encounter type: initial encounter Lumbar vertebra fracture level: L3 Qualified Code(s): S32.030A - Wedge compression fracture of third lumbar vertebra, initial encounter for closed fracture (3) Wedge compression fracture of second lumbar vertebra: PLAN: Plan Lumbar MRI demonstrating L2 at L3 acute compression fractures. He is also experiencing significant right radicular pain. Multimodal pain regimen for hospital team Her recommend initial conservative management efforts by a medication and physical therapy. He does state that he has been feeling better compared to yesterday. He has been up and walk around short distances. He still has significant pain with doing such activity difficulty with moving his right hip. He is noted to have a contusion of the right hip however so this may improve with time some degree. Depending upon how he does over the weekend I would consider the following interventional options Consider lumbar epidural steroid injection the L2-L3 level. Consider L2 +/orL3 kyphoplasty I discussed at great length the risks associated with the above procedures and benefits as well. He expressed understanding regarding the above plan. He is on Lovenox subcutaneous which will need to be held appropriately prior to intervention should this be pursued. HPI Consult Data Date of Consult: 06/04/24 HPI Narrative Reason for Consultation: Back pain HPI Narrative: CHING ZACARIAS, is a 48 M presented on 06/03/2024 deidre the ED with severe back pain after falling off of a ladder. He fell roughly 8 feet and noticed low back pain into the right hip and lower extremity. He has been having difficulty standing and ambulating as this exacerbates his pain severely to 10/10. He says he endorses some right hip weakness. MRI imaging demonstrated L2 and L3 acute compression fractures. He has a chronic L1 fracture. He states that the chronic fracture is likely from football. She denies any saddle paresthesias. Denies any loss of bowel or bladder control. PFSH Medical History Alcohol use CPAP (continuous positive airway pressure) dependence Non-smoker Home Medications ?Medication ?Instructions ?Recorded ?Last Taken ?Type ascorbic acid (vitamin C) 500 mg 500 mg PO DAILY 06/03/24 06/03/24 History chewable tablet (Acerola C) hydrocodone-acetaminophen 5-325mg 1 tab PO Q4H PRN PRN Pain 2 days 06/03/24 Unknown Rx 5mg-325mg #10 TABLETS naproxen 500 mg tablet (Naprosyn) 500 mg PO BID PRN pain #20 tabs 06/03/24 Unknown Rx Allergy/AdvReac Type Severity Reaction Status Date / Time Penicillins (PCN) Allergy Other Verified 10/15/21 11:24 Surgical History (Updated 10/11/21 @ 11:52 by Abbey Trinh) Hx of colonoscopy Hx of appendectomy Social History Smoking Status: Never smoker ROS ROS Narrative General: Denies fever/chills HENT: Denies headache, denies stuffy nose, denies sore throat EYES: Denies changes in vision Resp: Denies cough, denies shortness of breath Cardiac: Denies chest pain GI: Denies abdominal pain, denies changes in bowel, denies nausea/vomiting : Denies changes in urination Extremity: Denies swelling MSK: Low back and RLE pain Neuro: Denies any numbness/tingling at this time Heme: Denies any bleeding or bruising Skin: Denies rashes Psychiatric: No complaints voiced Physical Exam Narrative Lumbar paraspinal tenderness + bilaterally SLR + on right Hip provocative maneuvers negative 4/5 strength with right hip flexion but pain limited. Otherwise normal strength Normal sensation Normal DTR Const alert and oriented x3 Lab / Micro Data 06/04/24 05:04 06/04/24 05:04 Labs: Laboratory Results - last 24 hr 06/03/24 13:40: WBC 11.8 H, RBC 5.21, Hgb 15.5, Hct 45.7, MCV 87.7, MCH 29.8, MCHC 33.9, RDW Std Deviation 39.3, RDW Coeff of Manuelito 12.3, Plt Count 307, MPV 8.8, Immature Gran % (Auto) 2.300 H, Neut % (Auto) 74.5 H, Lymph % (Auto) 15.0 L , [place] % (Auto) 7.4, Eos % (Auto) 0.3, Baso % (Auto) 0.5, Absolute Neuts (auto) 8.8 H, Absolute Lymphs (auto) 1.76, Nucleated RBC % 0, Sodium 137, Potassium 4.4, Chloride 106, Carbon Dioxide 27.0, Anion Gap 4 L, BUN 10, Creatinine 0.92, Estim Creat Clear Calc 165.11, Est GFR (MDRD) Af Amer 112, Est GFR (MDRD) Non-Af 93, BUN/Creatinine Ratio 10.8, Glucose 110 H, Calcium 9.5, Total Bilirubin 0.30, AST 28, ALT 45, Alkaline Phosphatase 55, Total Protein 7.4, Albumin 3.6, Globulin 3.8, Albumin/Globulin Ratio 0.9, Lipase 31 06/04/24 05:04: WBC 11.8 H, RBC 4.67, Hgb 13.5, Hct 41.6, MCV 89.1, MCH 28.9, MCHC 32.5, RDW Std Deviation 41.1, RDW Coeff of Manuelito 12.6, Plt Count 288, MPV 9.0, Immature Gran % (Auto) 0.300, Neut % (Auto) 74.8 H, Lymph % (Auto) 15.7 L, [place] % (Auto) 8.7, Eos % (Auto) 0.2, Baso % (Auto) 0.3, Absolute Neuts (auto) 8.8 H, Absolute Lymphs (auto) 1.86, Nucleated RBC % 0, Sodium 136, Potassium 4.3, Chloride 103, Carbon Dioxide 29.0, Anion Gap 4 L, BUN 12, Creatinine 0.91, Estim Creat Clear Calc 160.05, Est GFR (MDRD) Af Amer 114, Est GFR (MDRD) Non-Af 94, BUN/Creatinine Ratio 13.2, Glucose 167 H, Calcium 8.7, Total Bilirubin 0.60, AST 24, ALT 35, Alkaline Phosphatase 48, Total Protein 6.5, Albumin 3.1 L, Globulin 3.4, Albumin/Globulin Ratio 0.9 Imaging Radiology Impression Brain CT 06/03/24 13:25 IMPRESSION: 1. No acute process of the brain. Electronically Signed: Vic Jacobsen MD at 15:12 EST , Cervical Spine CT 06/03/24 13:25 IMPRESSION: Multilevel degenerative changes, as described above. Electronically Signed: Vic Jacobsen MD at 15:24 EST , Chest/Abdomen/Pelvis CT 06/03/24 13:25 IMPRESSION: 1. Chest: Mild diffuse groundglass edema. No consolidation or pneumothorax. 2. Abdomen and pelvis: No visualized acute injury of the organs. No free air or free fluid or pneumoperitoneum is present. Electronically Signed: Vic Jacobsen MD at 15:08 EST , Femur X-Ray 06/03/24 13:25 IMPRESSION: Normal x-ray examination of the femur. Electronically Signed: Vic Jacobsen MD at 15:26 EST , Lumbar Spine MRI 06/03/24 17:44 IMPRESSION: 1. There is an acute superior endplate compression fracture of L3 as better demonstrated on comparison CT. Associated marrow enhancement. No retropulsion of the posterior cortex and no significant signal abnormality in the pedicle/posterior elements. Less than 25% vertebral body height loss. 2. L2 superior endplate compression fracture with less than 25% vertebral body height loss. Edema indicates that this is acute. No retropulsion of the posterior cortex or involvement of the pedicle/posterior elements. 3. L1 superior endplate compression deformity without edema is felt to be chronic. Less than 25% vertebral body height loss. Prominent Schmorl''s node at the superior endplate of L1. 4. Multilevel degenerative changes in the lumbar spine resulting in spinal canal and neural foraminal stenosis at multiple levels exacerbated by epidural lipomatosis. Bilateral L5 nerve root impingement. 5. 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 Electronically Signed: Aden Savage DO at 20:30 EST , ADDENDUM: 06/03/242220 IMPRESSION: 1. There is an acute superior endplate compression fracture of L3 as better demonstrated on comparison CT. Associated marrow enhancement. No retropulsion of the posterior cortex and no significant signal abnormality in the pedicle/posterior elements. Less than 25% vertebral body height loss. 2. L2 superior endplate compression fracture with less than 25% vertebral body height loss. Edema indicates that this is acute. No retropulsion of the posterior cortex or involvement of the pedicle/posterior elements. 3. L1 superior endplate compression deformity without edema is felt to be chronic. Less than 25% vertebral body height loss. Prominent Schmorl''s node at the superior endplate of L1. 4. Multilevel degenerative changes in the lumbar spine resulting in spinal canal and neural foraminal stenosis at multiple levels exacerbated by epidural lipomatosis. Bilateral L5 nerve root impingement. 5. 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 N.B. : TANYA TONY RN, confirmed on 06/03/2024 22:14:14 (ET) that the healthcare facility has received the radiology report. Electronically Signed: Aden Savage DO at 20:30 EST ,
--- NOTE | 2024-06-04 12:40 | CASEMGMT ---
RILEY WHITAKER into pt room to discuss DC plan. Pt would like [facility] services, denied list and requested [facility]. RN SHERMAN called [facility], they are not able to accept any patients at this time. RILEY WHITAKER Notified Pt of this, discussed HHC VS OP Therapy. Pt would like a script for OP PT and will schedule an appointment upon DC. Denies any additional needs at this time.
[2024-06-04 13:42] VITALS: BP 148/88; PULSE 96; RESP 18; TEMP 36.8; O2SAT 91
[2024-06-04 15:41] VITALS: BP 154/86; PULSE 96; RESP 16; TEMP 36.8; O2SAT 94
[2024-06-04 21:49] VITALS: BP 149/98; PULSE 94; RESP 16; TEMP 36.6; O2SAT 96
[2024-06-05] MEDS: 0.9% Saline Lock 10 ML Syringe IV ×3 (00:57→18:45)
[2024-06-05] MEDS: Ketorolac 30 MG/ML Syringe IV ×2 (00:57→05:11)
[2024-06-05 05:00] VITALS: BP 137/93; PULSE 89; RESP 16; TEMP 36.4; O2SAT 96
[2024-06-05] MEDS: oxyCODONE 5 MG Tablet PO ×4 (05:10→22:16)
[2024-06-05] MEDS: Acetaminophen 500 MG Tablet 1000 MG PO ×3 (05:11→22:16)
[2024-06-05] MEDS: Lidocaine 5% Patch 1 PATCH TOPICAL (09:21)
[2024-06-05] MEDS: Senna/Docusate Sodium 1 Tablet 2 TABLET PO ×2 (09:21→22:15)
[2024-06-05] MEDS: HYDROmorphone 0.5 MG/0.5 ML SYRINGE IV ×3 (09:22→18:46)
[2024-06-05 11:00] VITALS: BP 142/86; PULSE 94; RESP 18; TEMP 36.8; O2SAT 96
--- NOTE | 2024-06-05 11:00 | PN.HOSP_ITS ---
Reason for Visit Reason for Visit: Diagnoses Radiculopathy, lumbar region (06/03/24) Other malaise (06/03/24) Contusion of unspecified back wall of thorax, initial encounter (06/03/24) Wedge compression fracture of unspecified lumbar vertebra, initial encounter for closed fracture (06/03/24) Wedge compression fracture of second lumbar vertebra, initial encounter for closed fracture (06/03/24) Wedge compression fracture of third lumbar vertebra, initial encounter for closed fracture (06/03/24) Unspecified fall, initial encounter (06/03/24) Subjective Subjective Saw patient at bedside this morning. Patient was sitting up in bed and appeared to have more energy this morning than yesterday. Denied any pain at rest but does note continued to have low back pain and discomfort with movement that will radiate into his right leg. States pain does feel somewhat improved today after the IV Toradol injections were yesterday. He noted that plan with the management was to monitor him over the weekend and if he is still in significant pain on Friday, can move forward with an intra-articular pain injection. No other acute concerns this morning. Objective Data Objective Data Vital Signs: Vital Signs Temp Pulse Resp BP Pulse Ox O2 Del Method O2 Flow Rate 97.6 F L 89 16 137/93 H 96 Room Air 2 06/05/24 05:00 06/05/24 05:00 06/05/24 05:00 06/05/24 05:00 06/05/24 05:00 06/05/24 09:35 06/04/24 07:10 Oxygen Flow Rate (L/min) 2 Oxygen Delivery Method Room Air Weight: 165.1 kg Body Mass Index (BMI) 48.0 Intake & Output: Intake and Output for Last 24 Hours 06/03/24 06/04/24 06/05/24 23:59 23:59 23:59 Intake Total 1300 / 1300 1000 / 1000 Output Total 1800 / 1800 Balance 1300 / 850 -800 / -800 Lab / Micro Data 06/04/24 05:04 06/04/24 05:04 Physical Exam Const alert, oriented x3 and no apparent distress Constitutional Narrative: Middle-age male, class III obesity, mildly fatigued appearing but energy improved from admission, sitting up comfortably in bed, in no acute distress. General Appearance: cooperative HEENT normocephalic, head/scalp atraumatic, hearing grossly normal bilaterally, nasal mucous membranes and turbinates normal and moist oral mucous membranes Eyes PERRL, EOMs intact bilaterally and conjunctivae normal Neck full ROM Chest inspection of chest normal Resp normal respiratory effort, normal air movement, no use of accessory muscles and clear to auscultation bilaterally Cardio regular rate, regular rhythm, no murmurs and peripheral pulses 2+ throughout GI normal to inspection, nondistended, normoactive bowel sounds, soft to palpation, non-tender and non-distended Back/Spine Back/Spine Narrative: Mild-moderate tenderness to palpation in mid low back with mild paraspinal muscular tenderness. Extremity normal to inspection and no pedal edema Skin no rashes or lesions noted Neuro moves all extremities and no sensory deficits noted Speech: speech normal Psych mental status grossly normal Assessment & Plan Assessment/Plan (1) Lumbar compression fracture: QUALIFIERS: Encounter type: initial encounter Lumbar vertebra fracture level: L3 Qualified Code(s): S32.030A - Wedge compression fracture of third lumbar vertebra, initial encounter for closed fracture (2) Fall: (3) Debility: PLAN: Plan Patient is a 48-year-old male who presented [facility] ED on 06/03/2024 with low back pain after a fall. 1. Acute L2 and L3 compression fractures after fall from ladder with intractable low back pain and acute debility ? PT/OT/case management following. Pain management following. Patient had fall from the ladder and landed on his back at home. CT brain and C-spine unremarkable. CT chest abdomen pelvis showed no intrathoracic or intra- abdominal issues, did show concern for possible lumbar fracture. MRI lumbar spine showed acute L2 and L3 compression fractures with minimal height loss of vertebrae and no nerve issues noted. Discussed with Dr. Landry with orthopedics and no surgical needs at this time. Per pain management, will continue to treat with pain medications this weekend and if patient's pain is not improved much by Friday, will plan for an intra-articular injection. Continue pain control with scheduled Tylenol, lidocaine patch, p.o. oxycodone and IV Dilaudid as needed. 2. Class III obesity ? BMI 48 on admit. Encouraged lifestyle modifications. Complicates hospital course, care and prognosis. 3. Acute grief state ? Per patient's sister on admission, patient's recently within the last few weeks. Unclear on the circumstances surrounding this. Will discuss with patient on any needs regarding counseling services he may have on discharge. DVT prophylaxis: Lovenox twice daily CODE STATUS: DNR CCA, DNI Expected disposition: Home with home health care versus outpatient PT, 2 to 3 days Total clinical time spent by myself addressing the patient's medical issues, reviewing all the data, and collaborating with patient's care team: 35 minutes. Charges/Coding Visit Charges Inpatient E&M: 18831 Subs Hosp L2
[2024-06-05 16:00] VITALS: BP 134/85; PULSE 88; RESP 18; TEMP 36.6; O2SAT 97
[2024-06-05] MEDS: Bisacodyl 10 MG Suppository RC (18:52)
[2024-06-05 20:00] VITALS: BP 138/93; PULSE 84; RESP 16; TEMP 36.6; O2SAT 96
[2024-06-05] MEDS: Enoxaparin 40 MG/0.4 ML Syringe SC (22:15)
[2024-06-05] MEDS: MELATONIN 3 MG TABLET PO (22:16)
[2024-06-06] MEDS: 0.9% Saline Lock 10 ML Syringe IV ×3 (01:58→10:19)
[2024-06-06] MEDS: HYDROmorphone 0.5 MG/0.5 ML SYRINGE IV ×3 (01:59→16:12)
[2024-06-06 02:30] VITALS: BP 144/92; PULSE 87; RESP 18; TEMP 36.1; O2SAT 96
[2024-06-06] MEDS: Acetaminophen 500 MG Tablet 1000 MG PO ×3 (05:08→22:33)
[2024-06-06] MEDS: oxyCODONE 5 MG Tablet PO ×2 (05:08→22:33)
[2024-06-06] MEDS: Enoxaparin 40 MG/0.4 ML Syringe SC (08:42)
[2024-06-06] MEDS: Senna/Docusate Sodium 1 Tablet 2 TABLET PO ×2 (08:43→22:34)
[2024-06-06] MEDS: Lidocaine 5% Patch 1 PATCH TOPICAL (08:44)
[2024-06-06] MEDS: Polyethylene Glycol 3350 17 GM PACKET PO (08:48)
[2024-06-06 09:17] VITALS: BP 161/102; PULSE 90; RESP 16; TEMP 36.6; O2SAT 98
--- NOTE | 2024-06-06 10:11 | PCM.PN.HOSP ---
Reason for Visit Reason for Visit: Diagnoses Radiculopathy, lumbar region (06/03/24) Other malaise (06/03/24) Contusion of unspecified back wall of thorax, initial encounter (06/03/24) Wedge compression fracture of unspecified lumbar vertebra, initial encounter for closed fracture (06/03/24) Wedge compression fracture of second lumbar vertebra, initial encounter for closed fracture (06/03/24) Wedge compression fracture of third lumbar vertebra, initial encounter for closed fracture (06/03/24) Unspecified fall, initial encounter (06/03/24) Subjective Subjective Saw patient at bedside this morning. Physical therapy was just trying to work with the patient when I saw him. He was still laying back in bed and noted that he had significant low back pain radiating into the right leg with right upper leg tightness noted. He had required several doses of opiate pain medications yesterday and overnight for pain control. States that pain is minimal at rest but is significant with any movement. No other new concerns today. Objective Data Objective Data Vital Signs: Vital Signs Temp Pulse Resp BP Pulse Ox O2 Del Method O2 Flow Rate 98 F 90 16 161/102 H 98 Room Air 2 06/06/24 09:17 06/06/24 09:17 06/06/24 09:17 06/06/24 09:17 06/06/24 09:17 06/06/24 09:17 06/04/24 07:10 Oxygen Flow Rate (L/min) 2 Oxygen Delivery Method Room Air Weight: 165.1 kg Body Mass Index (BMI) 48.0 Intake & Output: Intake and Output for Last 24 Hours 06/04/24 06/05/24 06/06/24 23:59 23:59 23:59 Intake Total 1000 / 1000 1314 / 1614 600 / 600 Output Total 1800 / 1800 Balance -800 / -800 1314 / 1614 600 / 600 Lab / Micro Data 06/04/24 05:04 06/04/24 05:04 Physical Exam Const alert, oriented x3 and no apparent distress Constitutional Narrative: Middle-age male, class III obesity, mildly fatigued appearing but energy improved from admission, laying back comfortably in bed, in no acute distress. General Appearance: cooperative HEENT normocephalic, head/scalp atraumatic, hearing grossly normal bilaterally, nasal mucous membranes and turbinates normal and moist oral mucous membranes Eyes PERRL, EOMs intact bilaterally and conjunctivae normal Neck full ROM Chest inspection of chest normal Resp normal respiratory effort, normal air movement, no use of accessory muscles and clear to auscultation bilaterally Cardio regular rate, regular rhythm, no murmurs and peripheral pulses 2+ throughout GI normal to inspection, nondistended, normoactive bowel sounds, soft to palpation, non-tender and non-distended Back/Spine Back/Spine Narrative: Mild-moderate tenderness to palpation in mid low back with mild paraspinal muscular tenderness. Extremity normal to inspection and no pedal edema Skin no rashes or lesions noted Neuro moves all extremities and no sensory deficits noted Speech: speech normal Psych mental status grossly normal Assessment & Plan Assessment/Plan (1) Lumbar compression fracture: QUALIFIERS: Encounter type: initial encounter Lumbar vertebra fracture level: L3 Qualified Code(s): S32.030A - Wedge compression fracture of third lumbar vertebra, initial encounter for closed fracture (2) Fall: (3) Debility: PLAN: Plan Patient is a 48-year-old male who presented [facility] ED on 06/03/2024 with low back pain after a fall. 1. Acute L2 and L3 compression fractures after fall from ladder with intractable low back pain and acute debility ? PT/OT/case management following. Pain management following. Patient had fall from the ladder and landed on his back at home. CT brain and C-spine unremarkable. CT chest abdomen pelvis showed no intrathoracic or intra-abdominal issues, did show concern for possible lumbar fracture. MRI lumbar spine showed acute L2 and L3 compression fractures with minimal height loss of vertebrae and no nerve issues noted. Discussed with Dr. Landry with orthopedics and no surgical needs at this time. Treating with medications but unfortunately patient has not shown much improvement in pain control with movement. Will give 3 more doses of IV Toradol on 06/06 and started Flexeril 5 mg 3 times daily scheduled to see if this will help. Will continue scheduled Tylenol, lidocaine patch, p.o. oxycodone and IV Dilaudid as needed for now. Will keep patient n.p.o. overnight and hold Lovenox tomorrow in preparation for possible intra-articular injection with pain management on Friday. 2. Class III obesity ? BMI 48 on admit. Encouraged lifestyle modifications. Complicates hospital course, care and prognosis. 3. Acute grief state ? Per patient's sister on admission, patient's recently within the last few weeks. Unclear on the circumstances surrounding this. Will discuss with patient on any needs regarding counseling services he may have on discharge. DVT prophylaxis: Lovenox twice daily CODE STATUS: DNR CCA, DNI Expected disposition: Home with home health care versus outpatient PT, 1 to 2 days Total clinical time spent by myself addressing the patient's medical issues, reviewing all the data, and collaborating with patient's care team: 35 minutes. Charges/Coding Visit Charges Inpatient E&M: 02121 Subs Hosp L2
[2024-06-06] MEDS: Pantoprazole Sodium 40 MG Tablet PO (10:19)
[2024-06-06] MEDS: Ketorolac 15 MG/ML Vial IV ×2 (10:19→18:27)
[2024-06-06] MEDS: cycloBENZAPRine HCl 5 MG TABLET PO ×3 (10:19→22:34)
[2024-06-06 11:24] VITALS: BP 133/89; PULSE 82; RESP 16; TEMP 36.7; O2SAT 95
[2024-06-06] MEDS: Bisacodyl 10 MG Suppository RC (13:57)
[2024-06-06 16:44] VITALS: BP 156/100; PULSE 93; RESP 16; TEMP 36.8; O2SAT 98
[2024-06-06 22:40] VITALS: BP 149/99; PULSE 86; RESP 16; TEMP 36.9; O2SAT 96
[2024-06-07] MEDS: Ketorolac 15 MG/ML Vial IV (01:27)
[2024-06-07 04:30] VITALS: BP 163/105; PULSE 90; RESP 18; TEMP 36.5; O2SAT 99
--- NOTE | 2024-06-07 05:00 | EKG12_ITS ---
Test Reason : Pre-Op Blood Pressure : */* mmHG Vent. Rate : 80 BPM Atrial Rate : 80 BPM P-R Int : 144 ms QRS Dur : 90 ms QT Int : 374 ms P-R-T Axes : 70 15 41 degrees QTcB Int : 431 ms Normal sinus rhythm with sinus arrhythmia Normal ECG No previous ECGs available Confirmed by TOSHIA GAITAN, ADITI ([id number]), scientific publications editor RILEY UREÑA ([id number]) on 06/07/2024 8:36:04 AM Referred By: Shayna Confirmed By: ADITI POPE MD
[2024-06-07] MEDS: cycloBENZAPRine HCl 5 MG TABLET PO ×3 (05:46→21:17)
[2024-06-07] MEDS: Acetaminophen 500 MG Tablet 1000 MG PO ×3 (05:46→21:17)
[2024-06-07 06:16] LABS: Hematocrit 43.7 % (40-54); Hemoglobin 14.4 g/dL (13.0-16.5); Mean Corpuscular Hgb 29.5 pg (27.0-32.0); Mean Corpuscular Volume 89.5 fL (80-94); Mean Platelet Vol. 8.9 fl (6.2-12.0); Platelet Count 281 K/mm3 (150-450); RBC Distribution Width CV 12.5 % (11.6-14.6); RBC Distribution Width SD 41.2 fl (35.1-43.9); Red Blood Count 4.88 M/mm3 (4.6-6.2)
[2024-06-07 06:26] LABS: International Normalized Ratio 1.1; Prothrombin Time (Protime)PT. 13.7 SECONDS (11.7-14.9)
[2024-06-07 06:38] LABS: Anion Gap 3 (5-15); BUN 16 mg/dL (7-18); BUN/Creat Ratio 16.7 RATIO (10-20); Chloride 104 mmol/L (98-107); Creatinine, Serum 0.96 mg/dL (0.70-1.30); EST Glomerular Filtration Rate 89 mL/min (>60); Est Glom Filt Rate - Afr Amer 108 mL/min (>60); Estimated Creatinine Clearance 151.71 ml/min; Glucose 106 mg/dL (74-106); Sodium Level 139 mmol/L (136-145)
[2024-06-07 07:48] VITALS: O2SAT 96
[2024-06-07 08:21] VITALS: BP 148/105; PULSE 86; RESP 16; TEMP 36.7; O2SAT 95
[2024-06-07] MEDS: Polyethylene Glycol 3350 17 GM PACKET PO (10:21)
[2024-06-07] MEDS: Lidocaine 5% Patch 1 PATCH TOPICAL (10:21)
[2024-06-07] MEDS: Pantoprazole Sodium 40 MG Tablet PO (10:21)
[2024-06-07] MEDS: Senna/Docusate Sodium 1 Tablet 2 TABLET PO ×2 (10:22→21:17)
[2024-06-07] MEDS: oxyCODONE 5 MG Tablet PO ×2 (10:35→19:00)
--- NOTE | 2024-06-07 13:48 | PCM.PN.HOSP ---
Reason for Visit Reason for Visit: Diagnoses Radiculopathy, lumbar region (06/03/24) Other malaise (06/03/24) Contusion of unspecified back wall of thorax, initial encounter (06/03/24) Wedge compression fracture of unspecified lumbar vertebra, initial encounter for closed fracture (06/03/24) Wedge compression fracture of second lumbar vertebra, initial encounter for closed fracture (06/03/24) Wedge compression fracture of third lumbar vertebra, initial encounter for closed fracture (06/03/24) Unspecified fall, initial encounter (06/03/24) Objective Data Objective Data Vital Signs: Vital Signs Temp Pulse Resp BP Pulse Ox O2 Del Method O2 Flow Rate 98.0 F 86 16 148/105 H 95 Room Air 2 06/07/24 08:21 06/07/24 08:21 06/07/24 08:21 06/07/24 08:21 06/07/24 08:21 06/07/24 08:21 06/04/24 07:10 Oxygen Flow Rate (L/min) 2 Oxygen Delivery Method Room Air Weight: 363 lb 15.731 oz Body Mass Index (BMI) 48.0 Intake & Output: Intake and Output for Last 24 Hours 06/05/24 06/06/24 06/07/24 23:59 23:59 23:59 Intake Total 1314 / 1614 1400 / 1750 350 / 350 Output Total 350 / 350 Balance 1314 / 1614 1400 / 1750 0 / 0 Lab / Micro Data 06/07/24 05:55 06/07/24 05:55 Labs: Laboratory Results - last 24 hr 06/07/24 05:55: WBC 8.0, RBC 4.88, Hgb 14.4, Hct 43.7, MCV 89.5, MCH 29.5, MCHC 33.0, RDW Std Deviation 41.2, RDW Coeff of Manuelito 12.5, Plt Count 281, MPV 8.9, PT 13.7, INR 1.1, Sodium 139, Potassium 4.0, Chloride 104, Carbon Dioxide 32.0, Anion Gap 3 L, BUN 16, Creatinine 0.96, Estim Creat Clear Calc 151.71, Est GFR (MDRD) Af Amer 108, Est GFR (MDRD) Non-Af 89, BUN/Creatinine Ratio 16.7, Glucose 106, Calcium 9.0 Physical Exam Narrative Seen and examined Local back injection was postponed for tomorrow. Patient still has significant pain 5-6 at rest and 8-9 on movement. No fever. 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 Physical exam General: Alert, Oriented x3, Cooperative, in mild pain on pain medication. Morbid obesity BMI 48.0 kg/m? HEENT: Atraumatic, PERRLA, EOMI, Normocephalic Oral: No Gingival or Mucosal Lesions/ Ulcerations Neck: Supple, No JVD, Negative Carotid Bruits Chest wall/Lungs: Air entry diminished in bilateral lung bases. No crepitation/rhonchi Cardiovascular: Regular rate, Regular Rhythm, Normal S1, Normal S2, No M/G/R Abdomen: Bowel Sounds Present, Soft, Non Tender, Non-Distended : No dysuria. No renal angle tenderness. No suprapubic tenderness. Extremities: No edema, Capillary Refill Less than 3 Seconds Skin: No rashes, No breakdown Musculoskeletal: Could not turn back or sit up to examine back. Tenderness in lumbar area. Neurological: Cranial nerves II-XII grossly intact, DTR 2+/4. No acute focal neurological deficit. Psych/Mental Status: Normal Affect, Appropriate. Assessment & Plan Assessment/Plan (1) Lumbar compression fracture: QUALIFIERS: Encounter type: initial encounter Lumbar vertebra fracture level: L3 Qualified Code(s): S32.030A - Wedge compression fracture of third lumbar vertebra, initial encounter for closed fracture (2) Fall: (3) Debility: PLAN: Plan Patient is a 48-year-old male who presented [facility] ED on 06/03/2024 with low back pain after a fall.Patient had fall from the ladder and landed on his back at home. 1. Acute L2 and L3 compression fractures after fall from ladder with intractable low back pain and acute debility ? PT/OT/case management following. Pain management following. CT brain and C-spine unremarkable. CT chest abdomen pelvis showed no intrathoracic or intra-abdominal issues, did show concern for possible lumbar fracture. MRI lumbar spine showed acute L2 and L3 compression fractures with minimal height loss of vertebrae and no nerve issues noted. Discussed with Dr. Landry with orthopedics and no surgical needs at this time. Treating with medications but unfortunately patient has not shown much improvement in pain control with movement. Was given Toradol and on Flexeril 5 mg 3 times daily scheduled. On scheduled Tylenol, lidocaine patch, p.o. oxycodone and IV Dilaudid as needed for now. 06/07 was scheduled for pain injection at the back but postponed for tomorrow. 2. Morbid obesity ? BMI 48 on admit. Encouraged lifestyle modifications. Complicates hospital course, care and prognosis. 3. Acute grief state ? Per patient's sister on admission, patient's recently within the last few weeks. Unclear on the circumstances surrounding this. Will discuss with patient on any needs regarding counseling services he may have on discharge. DVT prophylaxis: Lovenox twice daily CODE STATUS: DNR CCA, DNI Expected disposition: Home with home health care versus outpatient PT, 1 to 2 days Charges/Coding Visit Charges Inpatient E&M: 67859 Subs Hosp L2
[2024-06-07 13:59] VITALS: BP 149/100; PULSE 91; RESP 16; TEMP 36.7; O2SAT 96
[2024-06-07 20:00] VITALS: BP 147/98; PULSE 90; RESP 16; TEMP 37; O2SAT 96
[2024-06-07] MEDS: HYDROmorphone 0.5 MG/0.5 ML SYRINGE IV (21:17)
[2024-06-07] MEDS: 0.9% Saline Lock 10 ML Syringe IV (21:18)
[2024-06-08] VITALS (12 sets, daily range): BP systolic 125–154; BP diastolic 86–104; PULSE 81–92; RESP 16–18; TEMP 36.2–36.8; O2SAT 95–99; BMI 47.9
[2024-06-08] MEDS: HYDROmorphone 0.5 MG/0.5 ML SYRINGE IV ×3 (01:35→23:02)
[2024-06-08] MEDS: 0.9% Saline Lock 10 ML Syringe IV ×3 (01:35→23:03)
--- NOTE | 2024-06-08 07:48 | PCM.PRE.AN2 ---
ASA Classification* ASA Classification ASA Classification: 3 Assessment & Plan Anesthesia* Anesthesia Assessment Anesthesia Assessment: Discussed sedation and/or anesthesia options, risks, benefits, and alternatives with patient/parents/legal guardian/POA. Questions invited. The patient/parents/legal guardian/POA seems to understand and agrees to proceed with anesthesia plan. Reviewed the physical assessment, medical history, allergy history and patient home medications list prior to surgery/procedure/anesthetic and documented any changes. Performed airway and anesthesia risk assessments. Anesthesia Type Anesthesia Type: MAC Anesthesia Focused Assessment* Temperature: 97.8 F Pulse Rate: 88 Blood Pressure: 150/90 Respiratory Rate: 16 Pulse Ox: 95 Oxygen Flow Rate (L/min): 2 Airway Assessment Mouth opens: >3 cm Mallampati Score: II Focused Labs Anesthesia Preop lab: CBC WBC 8.0 K/mm3 (4.4-11.0) 06/07/24 05:55 RBC 4.88 M/mm3 (4.6-6.2) 06/07/24 05:55 Hgb 14.4 g/dL (13.0-16.5) 06/07/24 05:55 Hct 43.7 % (40-54) 06/07/24 05:55 Plt Count 281 K/mm3 (150-450) 06/07/24 05:55 CHEMISTRY Potassium 4.0 mmol/L (3.5-5.1) 06/07/24 05:55 Sodium 139 mmol/L (136-145) 06/07/24 05:55 BUN 16 mg/dL (7-18) 06/07/24 05:55 Creatinine 0.96 mg/dL (0.70-1.30) 06/07/24 05:55 Glucose 106 mg/dL (74-106) 06/07/24 05:55 TSH 1.86 uIU/mL (0.358-3.74) 03/04/12 08:05 COAG PT 13.7 SECONDS (11.7-14.9) 06/07/24 05:55 Pre-Assessment Diagnosis/Proposed Procedure Planned Operative Procedure(s): L2-L3 Epidural Block Anesthesia History Anesthesia History - aperture mask etcher: Anesthesia History - aperture mask etcher Hx Hospitalization No 10/11/21 11:47 Any Problems With Anesthesia No 06/07/24 22:51 Cholinesterase deficiency No 06/07/24 22:51 You/Your Family Experience No 06/07/24 22:51 fever (hyperthermia) with Relationship Recent Exposure to Contagious No 06/07/24 22:51 Disease Does patient have nerve No 06/07/24 22:51 stimulator Patient instructed to have No 06/07/24 22:51 device shut off --Does patient have Pacemaker No 06/08/24 06:54 or ICD? When Was Last Pacemaker Check QUESTION #4 FULL TEXT: You/Your Family Experience fever (hyperthermia) with Anesthesia Last Oral Intake Last Oral intake: Last Oral Intake NPO since 00:00 06/08/24 06:54 Meds taken in AM with sips of No 06/08/24 06:54 water? Meds patient instructed to take am of surgery PONV PONV - aperture mask etcher: PONV - aperture mask etcher Female HX of Motion Sickness HX of N/V After Surgery Non-Smoker Duration of Surgery greater than 60 minutes Number of Risk Factors PONV Score Height & Weight Height & Weight: Anesthesia: Height & Weight Height 6 ft 1 in 06/08/24 06:54 Weight: 164.722 kg 06/08/24 06:54 Body Mass Index (BMI) 47.9 06/08/24 06:54 Respiratory Assessment Respiratory Assessment - aperture mask etcher: Respiratory Tract Infection Hx - aperture mask etcher Hx Respiratory Tract Infection No 06/07/24 22:51 STOP Sleep Apnea STOP Sleep Apnea - aperture mask etcher: STOP Sleep Apnea - aperture mask etcher Hx Hypertension No 06/05/24 13:17 Hx Sleep Apnea Yes 06/03/24 22:00 CPAP Yes 06/03/24 22:00 BIPAP No 06/03/24 22:00 Do you snore loudly (louder than talking or can be heard Do you often feel tired/ fatigued/ sleepy during daytime? Has anyone observed you stop breathing during sleep? STOP Results Positive 06/03/24 22:00 QUESTION #5 FULL TEXT : Do you snore loudly (louder than talking or can be heard through closed doors)? 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 Specify any problems Hx of Preganancy in last 3 N/A 06/03/24 22:00 Months Nurse Filling Out Transfusion [email or web address] 06/03/24 22:00 & Questions: Date: 06/03/24 06/03/24 22:00 Time: 22:11 06/03/24 22:00 Patient unable to answer at this time (ie. confused, unrespo /Reproduction History /Reproductive History - aperture mask etcher: /Reproductive Hx- aperture mask etcher Hx Now na 06/07/24 22:51 Gestational Age (in weeks): EDC: Hx Hx Para Hx Section SAB No 06/07/24 22:51 Active Medications Active Medications: Current Medications Generic Name Dose Route Start Last Admin Trade Name Freq PRN Reason Stop Dose Admin Acetaminophen 1,000 mg 06/03/24 22:00 06/08/24 05:04 Acetaminophen 500 Mg Tablet PO Not Given Q8 MARYAN Albuterol Sulfate 2.5 mg 06/03/24 22:00 Albuterol 2.5 Mg/3 Ml Vial.Neb. INHALATION Q2H PRN PRN SOB &/OR WHEEZING Bisacodyl 10 mg 06/05/24 13:18 06/06/24 13:57 Bisacodyl 10 Mg Suppository RC 10 mg DAILY PRN Administration constipation Cyclobenzaprine HCl 5 mg 06/06/24 09:15 06/08/24 05:04 Cyclobenzaprine Hcl 5 Mg Tablet PO Not Given TID MARYAN Enoxaparin Sodium 40 mg 06/03/24 22:00 06/06/24 22:28 Enoxaparin 40 Mg/0.4 Ml Syringe SC Not Given BID MARYAN Hydromorphone HCl 0.5 mg 06/04/24 10:00 06/08/24 01:35 Hydromorphone 0.5 Mg/0.5 Ml Syringe IV 0.5 mg Q4H PRN PRN Administration Pain Score 4-10 Sodium Chloride 100 mls @ 15 mls/hr 06/03/24 22:10 IV .Q6H40M PRN Saline Flush Sodium Chloride 100 mls @ 15 mls/hr 06/03/24 22:10 IV .Q6H40M PRN Additional IVPB Infusion Ketorolac Tromethamine 15 mg 06/06/24 09:15 06/07/24 01:27 Ketorolac 15 Mg/Ml Vial IV 06/11/24 09:12 15 mg Q6 MARYAN Administration Lidocaine 1 patch 06/04/24 10:00 06/07/24 10:21 Lidocaine 5% Patch TOPICAL 1 patch DAILY MARYAN Administration Protocol Melatonin 3 mg 06/03/24 22:00 06/05/24 22:16 Melatonin 3 Mg Tablet PO 3 mg QHS PRN PRN Administration INSOMNIA Ondansetron HCl 4 mg 06/03/24 22:00 Ondansetron 4 Mg/2 Ml Vial IV Q8H PRN PRN NAUSEA/VOMITING Oxycodone HCl 5 mg 06/03/24 22:00 06/07/24 19:00 Oxycodone 5 Mg Tablet PO 5 mg Q4H PRN PRN Administration Pain Score 4-10 Pantoprazole Sodium 40 mg 06/06/24 10:00 06/07/24 10:21 Pantoprazole Sodium 40 Mg Tablet PO 40 mg DAILY MARYAN Administration Polyethylene Glycol 17 gm 06/06/24 10:00 06/07/24 10:21 Polyethylene Glycol 3350 17 Gm Packet PO 17 gm DAILY MARYAN Administration Senna/Docusate Sodium 2 tablet 06/04/24 22:00 06/07/24 21:17 Senna/Docusate Sodium 1 Tablet PO 2 tablet BID MARYAN Administration Sodium Chloride 10 - 40 ml 06/03/24 22:10 06/08/24 01:35 0.9% Saline Lock 10 Ml Syringe IV 10 ml UD PRN Administration SALINE FLUSH PFSH Medical History Alcohol use CPAP (continuous positive airway pressure) dependence Non-smoker Home Medications ?Medication ?Instructions ?Recorded ?Last Taken ?Type ascorbic acid (vitamin C) 500 mg 500 mg PO DAILY 06/03/24 06/03/24 History chewable tablet (Acerola C) hydrocodone-acetaminophen 5-325mg 1 tab PO Q4H PRN PRN Pain 2 days 06/03/24 Unknown Rx 5mg-325mg #10 TABLETS naproxen 500 mg tablet (Naprosyn) 500 mg PO BID PRN pain #20 tabs 06/03/24 Unknown Rx Allergy/AdvReac Type Severity Reaction Status Date / Time Penicillins (PCN) Allergy Other Verified 10/15/21 11:24 Surgical History Hx of colonoscopy Hx of appendectomy Social History Smoking Status: Never smoker Review of Systems (Anesthesia) ROS Narrative System reviewed and no additional complaints, except as documented.
--- NOTE | 2024-06-08 08:50 | RAD_ITS ---
PROCEDURE: Epidural DATE OF EXAMINATION: INDICATION: Male, 48 years old. Back pain PHYSICIAN: FLUOROSCOPY TIME (if supplied): (0:18) minutes/seconds Technique: 18 seconds of fluoroscopy lumbar spine was utilized operating under an epidural and 4 images are submitted for interpretation. RAD/Lumbar Spine 2 or 3 Views IMPRESSION: Fluoroscopy during epidural. Electronically Signed: Pietro Ramirez MD at 9:36 EST ,
[2024-06-08] MEDS: Triamcinolone Acetonide 40 MG/ML Vial (09:05)
--- NOTE | 2024-06-08 09:41 | PCM.POST.ANE ---
Anesthesia: Postop Eval I Current Vital Signs Temperature: 98 F Pulse Rate: 92 Blood Pressure: 125/87 Respiratory Rate: 18 Pulse Ox: 99 Oxygen Delivery Method: Room Air Assessment Airway patent: Yes Spontaneous unlabored respirations: Yes Mental status: Awake and Calm nausea: No Vomiting: No Anesthesia Complication: No Fluid Hydration Crystalloid volume administer (ml): 10 Total IV fluid infused: 10 Progress Note Anesthesia document: Postop Eval 1 completed: Yes
--- NOTE | 2024-06-08 09:50 | PCM.OPRPT ---
Problems Associated Problem List Diagnoses (1) Lumbar radiculopathy, acute: Operative Report (Standard) Operative Information Date of Procedure: 06/08/24 Pre-Operative Diagnosis: Lumbar radiculopathy Post-Operative Diagnosis: Lumbar radiculopathy Surgery/Procedure Performed: L2-L3 epidural steroid injection program management specialist: No Type of Anesthesia: MAC and Topical Anesth RN Documented Start/Stop Times: Operation Date: 06/08/24 08:30 Case Time Into Pre-Op 06/08/24 07:23 Anesthesia Start 06/08/24 08:49 Into Room 06/08/24 08:49 Procedure Start 06/08/24 08:59 Procedure End 06/08/24 09:10 Anesthesia End 06/08/24 09:15 Out of Room 06/08/24 09:15 Into Recovery 06/08/24 09:16 Procedure Start Time: 08:59 Procedure Stop Time: 09:10 Select all DRAINS/GRAFTS/IMPLANTS that apply: None Estimated Blood Loss: nil Specimen collected: No Description of surgery: The patient was admitted to the preoperative area and a time out was performed. Vital signs were checked and the patient was moved to the procedure area and placed in the prone position. Standard monitors were applied. Sterile prep and draped performed in a regular manner. The appropriate level was identified under fluoroscopic guidance. Local anesthesia was administered using Lidocaine 1%, to anesthetize the skin and subcutaneous tissue with 25G needle. Next a 18G Touhy needle was inserted under fluoroscopic guidance. Using the loss of resistance technique, the epidural space was identified. Needle position was confirmed on an AP and lateral views as required. Contrast material, Omnipaque 3 cc, was injected under fluoroscopic guidance and showed appropriate epidurogram and epidural spread. Negative Blood and CSF aspiration was confirmed. A mixture of 5 ml of normal saline and 40 mg of Triamcinolone was injected. The patient tolerated the procedure well. The needle was removed intact. The patient was cleansed, and a Band-Aid was placed. All questions were answered. Moving all extremities in the recovery. Follow up in 1-2 weeks. Surgical Findings: n/a Complications Complications: No
[2024-06-08] MEDS: Senna/Docusate Sodium 1 Tablet 2 TABLET PO ×2 (10:28→20:51)
[2024-06-08] MEDS: Lidocaine 5% Patch 1 PATCH TOPICAL (10:28)
[2024-06-08] MEDS: Polyethylene Glycol 3350 17 GM PACKET PO (10:29)
[2024-06-08] MEDS: Pantoprazole Sodium 40 MG Tablet PO (10:29)
[2024-06-08] MEDS: cycloBENZAPRine HCl 5 MG TABLET PO ×2 (13:39→20:52)
[2024-06-08] MEDS: Acetaminophen 500 MG Tablet 1000 MG PO ×2 (13:39→20:52)
--- NOTE | 2024-06-08 14:47 | CASEMGMT ---
Pt had procedure today, pt has not had therapy post procedure. RN CM into pt room, pt states he feels rough. Pt nurse present in room. Pt still plans to dc home with outpt therapy. Pt aware that there is a green sheet on chart so he may get this tomorrow if he dc's. Pt is aware to have HHC, he would need to be homebound. Pt denies further needs at this time.
--- NOTE | 2024-06-08 15:06 | PN.HOSP_ITS ---
Reason for Visit Reason for Visit: Diagnoses Radiculopathy, lumbar region (06/03/24) Other malaise (06/03/24) Contusion of unspecified back wall of thorax, initial encounter (06/03/24) Wedge compression fracture of unspecified lumbar vertebra, initial encounter for closed fracture (06/03/24) Wedge compression fracture of second lumbar vertebra, initial encounter for closed fracture (06/03/24) Wedge compression fracture of third lumbar vertebra, initial encounter for closed fracture (06/03/24) Unspecified fall, initial encounter (06/03/24) Objective Data Objective Data Vital Signs: Vital Signs Temp Pulse Resp BP Pulse Ox O2 Del Method O2 Flow Rate 97.9 F 90 16 139/92 H 95 Room Air 2 06/08/24 14:24 06/08/24 14:24 06/08/24 14:24 06/08/24 14:24 06/08/24 14:24 06/08/24 14:24 06/08/24 07:48 Oxygen Flow Rate (L/min) 2 Oxygen Delivery Method Room Air Weight: 363 lb 2.4 oz Body Mass Index (BMI) 47.9 Intake & Output: Intake and Output for Last 24 Hours 06/06/24 06/07/24 06/08/24 23:59 23:59 23:59 Intake Total 1400 / 1750 350 / 350 Output Total 2400 / 2400 500 / 500 Balance 1400 / 1750 -2050 / -2050 -500 / -500 Lab / Micro Data 06/07/24 05:55 06/07/24 05:55 Radiography Diagnostic Testing: Radiology Impression Lumbar Spine X-Ray 06/08/24 08:50 IMPRESSION: Fluoroscopy during epidural. Electronically Signed: Pietro Ramirez MD at 9:36 EST , Physical Exam Narrative Seen and examined The patient had local back injection today. Pain is better and patient send flex and left right lower extremity. No fever. 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 Physical exam General: Alert, Oriented x3, Cooperative, in mild pain on pain medication. Morbid obesity BMI 48.0 kg/m? HEENT: Atraumatic, PERRLA, EOMI, Normocephalic Oral: No Gingival or Mucosal Lesions/ Ulcerations Neck: Supple, No JVD, Negative Carotid Bruits Chest wall/Lungs: Air entry diminished in bilateral lung bases. No crepitation/rhonchi Cardiovascular: Regular rate, Regular Rhythm, Normal S1, Normal S2, No M/G/R Abdomen: Bowel Sounds Present, Soft, Non Tender, Non-Distended : No dysuria. No renal angle tenderness. No suprapubic tenderness. Extremities: No edema, Capillary Refill Less than 3 Seconds Skin: No rashes, No breakdown Musculoskeletal: Could not turn back or sit up to examine back. Tenderness in lumbar area. Neurological: Cranial nerves II-XII grossly intact, DTR 2+/4. No acute focal neurological deficit. Psych/Mental Status: Normal Affect, Appropriate. Assessment & Plan Assessment/Plan (1) Lumbar compression fracture: QUALIFIERS: Encounter type: initial encounter Lumbar vertebra fracture level: L3 Qualified Code(s): S32.030A - Wedge compression fracture of third lumbar vertebra, initial encounter for closed fracture (2) Fall: (3) Debility: PLAN: Plan Patient is a 48-year-old male who presented [facility] ED on 06/03/2024 with low back pain after a fall.Patient had fall from the ladder and landed on his back at home. 1. Acute L2 and L3 compression fractures after fall from ladder with intractable low back pain and acute debility ? PT/OT/case management following. Pain management following. CT brain and C- spine unremarkable. CT chest abdomen pelvis showed no intrathoracic or intra- abdominal issues, did show concern for possible lumbar fracture. MRI lumbar spine showed acute L2 and L3 compression fractures with minimal height loss of vertebrae and no nerve issues noted. Discussed with Dr. Landry with orthopedics and no surgical needs at this time. Treating with medications but unfortunately patient has not shown much improvement in pain control with movement. Was given Toradol and on Flexeril 5 mg 3 times daily scheduled. On scheduled Tylenol, lidocaine patch, p.o. oxycodone and IV Dilaudid as needed for now. 06/07 was scheduled for pain injection at the back but postponed for tomorrow. 06/08: Patient had L2-L3 epidural steroid injection. Pain is better. PT and OT. Depending upon improvement in pain and mobility, will decide about either home discharge or SNF 2. Morbid obesity ? BMI 48 on admit. Encouraged lifestyle modifications. Complicates hospital course, care and prognosis. 3. Acute grief state ? Per patient's sister on admission, patient's recently within the last few weeks. Unclear on the circumstances surrounding this. Will discuss with patient on any needs regarding counseling services he may have on discharge. DVT prophylaxis: Lovenox twice daily CODE STATUS: DNR CCA, DNI Charges/Coding Visit Charges Inpatient E&M: 55052 Subs Hosp L2
--- NOTE | 2024-06-08 15:15 | POSTOPAN2_ITS ---
Anesthesia Postop Eval I Sum Postop Eval Completion status Anesthesia document: Postop Eval 1 completed: Yes Anesthesia Postop Eval I Summary Anesthesia Postop Eval I Summary: Anesthesia Postop Eval I: Assessment Summary Airway patent Yes 06/08/24 09:41 NEW CLIENT BANKING SERVICES [email or web address] Spontaneous unlabored Yes 06/08/24 09:41 NEW CLIENT BANKING SERVICES CLERKSHARMAINE respirations Mental status Awake,Calm 06/08/24 09:41 NEW CLIENT BANKING SERVICES [email or web address] nausea No 06/08/24 09:41 NEW CLIENT BANKING SERVICES CLERK.[email or web address] Vomiting No 06/08/24 09:41 NEW CLIENT BANKING SERVICES CLERKSHARMAINE Anesthesia Postop Eval I: Fluid Summary Crystalloid volume administer 10 06/08/24 09:41 NEW CLIENT BANKING SERVICES [email or web address] (ml) Colloids volume administered ( ml) Blood Product volume administered (ml) Total IV fluid infused 10 06/08/24 09:41 NEW CLIENT BANKING SERVICES CLERKSHARMAINE Anesthesia Postop Eval I: Summary Notes Anesthesia Complication No 06/08/24 09:41 AILYN Anesthesia Complication Comment: Post-operative progress note Anesthesia: Postop Eval II Evaluation Mental status: Awake and Calm Pain Level: 1 nausea: No Vomiting: No Complications Anesthesia Complication: No
--- NOTE | 2024-06-08 15:15 | PCM.POSTANE2 ---
Anesthesia Postop Eval I Sum Postop Eval Completion status Anesthesia document: Postop Eval 1 completed: Yes Anesthesia Postop Eval I Summary Anesthesia Postop Eval I Summary: Anesthesia Postop Eval I: Assessment Summary Airway patent Yes 06/08/24 09:41 INDUSTRIAL ENGINEERING [email or web address] Spontaneous unlabored Yes 06/08/24 09:41 INDUSTRIAL ENGINEERING ANALYSTSHARMAINE respirations Mental status Awake,Calm 06/08/24 09:41 INDUSTRIAL ENGINEERING ANALYST.IJEOMA nausea No 06/08/24 09:41 INDUSTRIAL ENGINEERING ANALYST.IJEOMA Vomiting No 06/08/24 09:41 INDUSTRIAL ENGINEERING ANALYSTSHARMAINE Anesthesia Postop Eval I: Fluid Summary Crystalloid volume administer 10 06/08/24 09:41 INDUSTRIAL ENGINEERING ANALYST.IJEOMA (ml) Colloids volume administered ( ml) Blood Product volume administered (ml) Total IV fluid infused 10 06/08/24 09:41 INDUSTRIAL ENGINEERING ANALYSTSHARMAINE Anesthesia Postop Eval I: Summary Notes Anesthesia Complication No 06/08/24 09:41 AILYN Anesthesia Complication Comment: Post-operative progress note Anesthesia: Postop Eval II Evaluation Mental status: Awake and Calm Pain Level: 1 nausea: No Vomiting: No Complications Anesthesia Complication: No
[2024-06-08] MEDS: Bisacodyl 5 MG Tablet 10 MG PO (17:38)
[2024-06-08] MEDS: oxyCODONE 5 MG Tablet PO ×2 (17:44→22:14)
[2024-06-08] MEDS: MELATONIN 3 MG TABLET PO (20:51)
[2024-06-09] MEDS: oxyCODONE 5 MG Tablet PO ×4 (04:14→20:19)
[2024-06-09] MEDS: cycloBENZAPRine HCl 5 MG TABLET PO ×3 (05:46→21:26)
[2024-06-09] MEDS: Acetaminophen 500 MG Tablet 1000 MG PO ×3 (05:47→21:28)
[2024-06-09 05:58] VITALS: BP 147/87; PULSE 97; RESP 18; TEMP 36.4; O2SAT 96
[2024-06-09] MEDS: Polyethylene Glycol 3350 17 GM PACKET PO (07:22)
[2024-06-09] MEDS: Pantoprazole Sodium 40 MG Tablet PO (07:22)
[2024-06-09] MEDS: Lidocaine 5% Patch 1 PATCH TOPICAL (07:22)
[2024-06-09] MEDS: Senna/Docusate Sodium 1 Tablet 2 TABLET PO ×2 (07:23→21:27)
[2024-06-09 09:02] VITALS: BP 137/102; PULSE 89; RESP 16; TEMP 36.6; O2SAT 97
[2024-06-09 11:16] VITALS: BP 133/96; PULSE 86; RESP 16; TEMP 36.5; O2SAT 96
[2024-06-09] MEDS: 0.9% Saline Lock 10 ML Syringe IV ×3 (11:24→21:30)
[2024-06-09] MEDS: HYDROmorphone 0.5 MG/0.5 ML SYRINGE IV ×3 (11:24→21:25)
--- NOTE | 2024-06-09 12:13 | PN.HOSP_ITS ---
Reason for Visit Reason for Visit: Diagnoses Radiculopathy, lumbar region (06/03/24) Other malaise (06/03/24) Contusion of unspecified back wall of thorax, initial encounter (06/03/24) Wedge compression fracture of unspecified lumbar vertebra, initial encounter for closed fracture (06/03/24) Wedge compression fracture of second lumbar vertebra, initial encounter for closed fracture (06/03/24) Wedge compression fracture of third lumbar vertebra, initial encounter for closed fracture (06/03/24) Unspecified fall, initial encounter (06/03/24) Objective Data Objective Data Vital Signs: Vital Signs Temp Pulse Resp BP Pulse Ox O2 Del Method O2 Flow Rate 97.7 F L 86 16 133/96 H 96 Room Air 2 06/09/24 11:16 06/09/24 11:16 06/09/24 11:16 06/09/24 11:16 06/09/24 11:16 06/09/24 11:16 06/08/24 07:48 Oxygen Flow Rate (L/min) 2 Oxygen Delivery Method Room Air Weight: 363 lb 2.4 oz Body Mass Index (BMI) 47.9 Intake & Output: Intake and Output for Last 24 Hours 06/07/24 06/08/24 06/09/24 23:59 23:59 23:59 Intake Total 350 / 350 250 / 250 Output Total 2400 / 2400 2150 / 2150 150 / 150 Balance -0 / -0 -2150 / -0 100 / 100 Lab / Micro Data 06/07/24 05:55 06/07/24 05:55 Physical Exam Narrative Seen and examined The patient had local back injection on 06/08/2024. Many family members present. Discussed with patient's . Pain is better and patient can lift her right lower extremity. Patient worked with the physical therapy and was made to stand up with assistance. No fever. 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 Physical exam General: Alert, Oriented x3, Cooperative, in mild pain on pain medication. Morbid obesity BMI 48.0 kg/m? HEENT: Atraumatic, PERRLA, EOMI, Normocephalic Oral: No Gingival or Mucosal Lesions/ Ulcerations Neck: Supple, No JVD, Negative Carotid Bruits Chest wall/Lungs: Air entry diminished in bilateral lung bases. No crepitation/rhonchi Cardiovascular: Regular rate, Regular Rhythm, Normal S1, Normal S2, No M/G/R Abdomen: Bowel Sounds Present, Soft, Non Tender, Non-Distended : No dysuria. No renal angle tenderness. No suprapubic tenderness. Extremities: No edema, Capillary Refill Less than 3 Seconds Skin: No rashes, No breakdown Musculoskeletal: Mild tenderness in lumbar area. Muscle strength 3+/5 at right knee and hip. Muscle strength 4+/5 at left knee and hip. Neurological: Cranial nerves II-XII grossly intact, DTR 2+/4. No acute focal neurological deficit. Psych/Mental Status: Normal Affect, Appropriate. Assessment & Plan Assessment/Plan (1) Lumbar compression fracture: QUALIFIERS: Encounter type: initial encounter Lumbar vertebra fracture level: L3 Qualified Code(s): S32.030A - Wedge compression fracture of third lumbar vertebra, initial encounter for closed fracture (2) Fall: (3) Debility: PLAN: Plan Patient is a 48-year-old male who presented [facility] ED on 06/03/2024 with low back pain after a fall.Patient had fall from the ladder and landed on his back at home. 1. Acute L2 and L3 compression fractures after fall from ladder with intractable low back pain and acute debility ? PT/OT/case management following. Pain management following. CT brain and C- spine unremarkable. CT chest abdomen pelvis showed no intrathoracic or intra- abdominal issues, did show concern for possible lumbar fracture. MRI lumbar spine showed acute L2 and L3 compression fractures with minimal height loss of vertebrae and no nerve issues noted. Discussed with Dr. Landry with orthopedics and no surgical needs at this time. Treating with medications but unfortunately patient has not shown much improvement in pain control with movement. Was given Toradol and on Flexeril 5 mg 3 times daily scheduled. On scheduled Tylenol, lidocaine patch, p.o. oxycodone and IV Dilaudid as needed for now. 06/07 was scheduled for pain injection at the back but postponed for tomorrow. 06/08: Patient had L2-L3 epidural steroid injection. Pain is better. PT and OT. Depending upon improvement in pain and mobility, will decide about either home discharge or SNF 06/09: Continue PT and OT. Patient will likely need SNF. 2. Morbid obesity ? BMI 48 on admit. Encouraged lifestyle modifications. Complicates hospital course, care and prognosis. 3. Acute grief state ? Per patient's sister on admission, patient's recently within the last few weeks. Unclear on the circumstances surrounding this. Will discuss with patient on any needs regarding counseling services he may have on discharge. DVT prophylaxis: Lovenox twice daily CODE STATUS: DNR CCA, DNI Charges/Coding Visit Charges Inpatient E&M: 69518 Subs Hosp L2
[2024-06-09 15:00] VITALS: BP 143/85; PULSE 108; RESP 16; TEMP 36.4; O2SAT 96
[2024-06-09 21:21] VITALS: BP 151/88; PULSE 80; RESP 20; TEMP 36.7; O2SAT 98
[2024-06-10 01:32] VITALS: BP 133/87; PULSE 79; RESP 18; TEMP 37.1; O2SAT 95
[2024-06-10] MEDS: 0.9% Saline Lock 10 ML Syringe IV ×3 (01:34→20:02)
[2024-06-10] MEDS: HYDROmorphone 0.5 MG/0.5 ML SYRINGE IV ×4 (01:34→19:59)
[2024-06-10 05:06] LABS: Absolute Lymphocyte Count 1.67 X10^3/uL (0.83-4.51); Absolute Neutrophil Count 7.9 X10^3/uL (2.0-7.7); Basophil# 0.06 X10^3/uL; Basophil% 0.5 % (0-1); Eosinophil# 0.18 X10^3/uL; Eosinophils% 1.6 % (0-5); Hematocrit 44.1 % (40-54); Hemoglobin 14.8 g/dL (13.0-16.5); Lymphocyte # 1.67 X10^3/ul (0.83-4.51); Lymphocyte % 15.3 % (19-41); Mean Corp Hgb Conc 33.6 g/dL (32-36); Mean Corpuscular Hgb 29.8 pg (27.0-32.0); Mean Corpuscular Volume 88.9 fL (80-94); Mean Platelet Vol. 9.1 fl (6.2-12.0); Monocyte# 1.08 X10^3/uL; Monocyte% 9.9 % (0-10); NRBC Flagged by Analyzer 0 % (0-5); Neutrophil % 72.3 % (47-70); Platelet Count 306 K/mm3 (150-450); RBC Distribution Width CV 12.4 % (11.6-14.6); RBC Distribution Width SD 40.4 fl (35.1-43.9); Red Blood Count 4.96 M/mm3 (4.6-6.2); White Blood Count 10.9 K/mm3 (4.4-11.0)
[2024-06-10 05:25] LABS: Anion Gap 4 (5-15); BUN 16 mg/dL (7-18); BUN/Creat Ratio 17.6 RATIO (10-20); Chloride 103 mmol/L (98-107); Creatinine, Serum 0.91 mg/dL (0.70-1.30); EST Glomerular Filtration Rate 94 mL/min (>60); Est Glom Filt Rate - Afr Amer 114 mL/min (>60); Estimated Creatinine Clearance 159.83 ml/min; Glucose 107 mg/dL (74-106); Potassium 4.6 mmol/L (3.5-5.1); Sodium Level 135 mmol/L (136-145)
[2024-06-10] MEDS: oxyCODONE 5 MG Tablet PO ×4 (05:28→22:03)
[2024-06-10] MEDS: cycloBENZAPRine HCl 5 MG TABLET PO ×3 (06:43→22:02)
[2024-06-10] MEDS: Acetaminophen 500 MG Tablet 1000 MG PO ×3 (06:43→22:01)
[2024-06-10 06:50] VITALS: BP 150/90; PULSE 83; RESP 20; TEMP 36.6; O2SAT 95
[2024-06-10] MEDS: Polyethylene Glycol 3350 17 GM PACKET PO (07:31)
[2024-06-10] MEDS: Senna/Docusate Sodium 1 Tablet 2 TABLET PO ×2 (07:31→22:01)
[2024-06-10] MEDS: Pantoprazole Sodium 40 MG Tablet PO (07:31)
[2024-06-10] MEDS: Lidocaine 5% Patch 1 PATCH TOPICAL (07:31)
[2024-06-10 08:44] VITALS: BP 135/100; PULSE 92; RESP 16; TEMP 36.3; O2SAT 95
[2024-06-10 11:18] VITALS: BP 142/96; PULSE 96; RESP 16; TEMP 36.8; O2SAT 94
--- NOTE | 2024-06-10 12:14 | CASEMGMT ---
Discharge Planning A list of?SNF providers including quality and resource use data and consistent with the patient's preferred geographic region, medical needs, and insurance network was created in [employer] Guide.? This list was provided to the SW. Janet Weston Discharge Planning Asst.
--- NOTE | 2024-06-10 12:30 | CASEMGMT ---
Social Work In rounding with provider today, short term SNF was recommended to explore. This brief writer noted 6 Clicks 18 (for PT) and 16 (for OT) today. Per conversation with RN SHERMAN Fiore, patient is a recent within the last couple of weeks. Informed by nursing that patient's family in the room with patient and awaiting SW visit to discuss discharge planning and possible SNF. Presented to patient's room to find patient alone. Introduced to self and role, as well as confirmed it is okay to talk about discharge plans if patient's sister comes back. Patient confirmed. Patient reports to have a lot of pain, which patient reports is getting better, but still not up to normal independence level to return home right away. Patient reports belief that working with therapy is helping, as well as leg stretches to help get patient up and moving. Patient reported was interested in the [facility] TCU, as though patient lives in [place], much of patient's family is in [facility] and could visit. Patient's sister entered room, and reviewed patient's thoughts about SNF. Discussed that a list of options is being printed for patient for SNF, so patient can look at all choices. This brief writer let patient know that uncertain if there is bed availability at TCU right now, so may need to think of other options. Also educated that insurance ultimately decides whether patient will be approved for SNF, and that may need to be thinking of other options. Broached with patient that based on PT notes, patient is doing slightly better than with OT, so it really is going to be what insurance determines as far as SNF LOC. Presented back with list of SNF choices generated from [facility], including insurance network, geographical region, and quality/star ratings from [facility]. Patient reports will consider options while waits to hear about TCU referral. Sister Afia mentioned patient has a cousin who works at [employer]. Note, before patient's sister arrived back to room, this brief writer did broach the recent loss of patient's . Patient acknowledges the loss, and shared that he is the type of person to stay busy, and was staying busy working outside and on a ladder when patient fell about 8 feet, incurring current injury. Patient reports to have good support from family and friend who have been checking on the patient frequently. This line of discussed ceased when the sister arrived to the room, and only discharge planning was discussed. Referral made to [facility] at [facility] TCU admissions. Plan: Possible SNF level of care, referral pending at [facility] T[facility]. -ELIZABETH Morel
--- NOTE | 2024-06-10 13:56 | PCM.PN.HOSP ---
Reason for Visit Reason for Visit: Diagnoses Radiculopathy, lumbar region (06/09/24) Other malaise (06/09/24) Contusion of unspecified back wall of thorax, initial encounter (06/09/24) Wedge compression fracture of unspecified lumbar vertebra, initial encounter for closed fracture (06/09/24) Wedge compression fracture of second lumbar vertebra, initial encounter for closed fracture (06/09/24) Wedge compression fracture of third lumbar vertebra, initial encounter for closed fracture (06/09/24) Unspecified fall, initial encounter (06/09/24) Objective Data Objective Data Vital Signs: Vital Signs Temp Pulse Resp BP Pulse Ox O2 Del Method O2 Flow Rate 98.3 F 96 16 142/96 H 94 Room Air 2 06/10/24 11:18 06/10/24 11:18 06/10/24 11:18 06/10/24 11:18 06/10/24 11:18 06/10/24 13:27 06/08/24 07:48 Oxygen Flow Rate (L/min) 2 Oxygen Delivery Method Room Air Weight: 363 lb 2.4 oz Body Mass Index (BMI) 47.9 Intake & Output: Intake and Output for Last 24 Hours 06/08/24 06/09/24 06/10/24 23:59 23:59 23:59 Intake Total 850 / 1150 1600 / 1600 Output Total 2150 / 2150 150 / 375 1000 / 1000 Balance -2150 / -2150 700 / 775 600 / 600 Lab / Micro Data 06/10/24 04:07 06/10/24 04:07 Labs: Laboratory Results - last 24 hr 06/10/24 04:07: WBC 10.9, RBC 4.96, Hgb 14.8, Hct 44.1, MCV 88.9, MCH 29.8, MCHC 33.6, RDW Std Deviation 40.4, RDW Coeff of Manuelito 12.4, Plt Count 306, MPV 9.1, Immature Gran % (Auto) 0.400, Neut % (Auto) 72.3 H, Lymph % (Auto) 15.3 L, Hill % (Auto) 9.9, Eos % (Auto) 1.6, Baso % (Auto) 0.5, Absolute Neuts (auto) 7.9 H, Absolute Lymphs (auto) 1.67, Nucleated RBC % 0, Sodium 135 L, Potassium 4.6, Chloride 103, Carbon Dioxide 28.0, Anion Gap 4 L, BUN 16, Creatinine 0.91, Estim Creat Clear Calc 159.83, Est GFR (MDRD) Af Amer 114, Est GFR (MDRD) Non-Af 94, BUN/Creatinine Ratio 17.6, Glucose 107 H, Calcium 9.0 Physical Exam Narrative Seen and examined The patient had local back injection on 06/08/2024. Very slow improvement in right lower extremity power and strength. Many family members present. Pain is better and patient can lift her right lower extremity. No fever. 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 Physical exam General: Alert, Oriented x3, Cooperative, in mild pain on pain medication. Morbid obesity BMI 48.0 kg/m? HEENT: Atraumatic, PERRLA, EOMI, Normocephalic Oral: No Gingival or Mucosal Lesions/ Ulcerations Neck: Supple, No JVD, Negative Carotid Bruits Chest wall/Lungs: Air entry diminished in bilateral lung bases. No crepitation/rhonchi Cardiovascular: Regular rate, Regular Rhythm, Normal S1, Normal S2, No M/G/R Abdomen: Bowel Sounds Present, Soft, Non Tender, Non-Distended : No dysuria. No renal angle tenderness. No suprapubic tenderness. Extremities: No edema, Capillary Refill Less than 3 Seconds Skin: Maculopapular rash over back from sweating. Musculoskeletal: Mild soreness in lumbar area. Muscle strength 3+/5 at right knee and hip. Muscle strength 4+/5 at left knee and hip. Neurological: Cranial nerves II-XII grossly intact, DTR 2+/4. No acute focal neurological deficit. Psych/Mental Status: Normal Affect, Appropriate. Assessment & Plan Assessment/Plan (1) Lumbar compression fracture: QUALIFIERS: Encounter type: initial encounter Lumbar vertebra fracture level: L3 Qualified Code(s): S32.030A - Wedge compression fracture of third lumbar vertebra, initial encounter for closed fracture (2) Fall: (3) Debility: PLAN: Plan Patient is a 48-year-old male who presented [facility] ED on 06/03/2024 with low back pain after a fall.Patient had fall from the ladder and landed on his back at home. 1. Acute L2 and L3 compression fractures after fall from ladder with intractable low back pain and acute debility ? PT/OT/case management following. Pain management following. CT brain and C-spine unremarkable. CT chest abdomen pelvis showed no intrathoracic or intra-abdominal issues, did show concern for possible lumbar fracture. MRI lumbar spine showed acute L2 and L3 compression fractures with minimal height loss of vertebrae and no nerve issues noted. Discussed with Dr. Landry with orthopedics and no surgical needs at this time. Treating with medications but unfortunately patient has not shown much improvement in pain control with movement. Was given Toradol and on Flexeril 5 mg 3 times daily scheduled. On scheduled Tylenol, lidocaine patch, p.o. oxycodone and IV Dilaudid as needed for now. 06/07 was scheduled for pain injection at the back but postponed for tomorrow. 06/08: Patient had L2-L3 epidural steroid injection. Pain is better. PT and OT. Depending upon improvement in pain and mobility, will decide about either home discharge or SNF 06/09: Continue PT and OT. Patient will likely need SNF. 06/10: Pre-CERT pending. Continue PT and OT. Gradual improvement in RLE muscle strength. Diffuse maculopapular rash in back from sweating/heat rash:, Calmoseptine ointment and moisturizer ordered 2. Morbid obesity ? BMI 48 on admit. Encouraged lifestyle modifications. Complicates hospital course, care and prognosis. 3. Acute grief state ? Per patient's sister on admission, patient's recently within the last few weeks. Unclear on the circumstances surrounding this. Will discuss with patient on any needs regarding counseling services he may have on discharge. DVT prophylaxis: Lovenox twice daily CODE STATUS: DNR CCA, DNI Charges/Coding Visit Charges Inpatient E&M: 47910 Subs Hosp L2
--- NOTE | 2024-06-10 14:30 | CASEMGMT ---
Social Work Received notice from [facility] in admissions at TCU and unable to accept patient. Met with patient to update. Patient's next choices are [facility] or [facility]; does not care which SNF and okay with referrals being sent to both. Updated discharge wind science and planning. In conversation with patient further explored loss of patient's , to degree patient willing and open to discuss. Patient reports was for 21 years, no children but had dog. Reports the loss of his was fast, only having hospice involved for half a day before the passed. Patient reports family and friends have been checking in on patient and patient has been keeping busy, doing things around the house. Patient reports has talked to his supports, that supports should be checking in on patient in a month or two when things slow down for patient. Patient reports to be the type of person that if has a hard time being at home alone, will call someone and make arrangements to go out to dinner. This typewriter mechanic broached possible counseling down the road, if patient would want additional support for any depression, grief, adjustment issues. Patient agreeable to have a list of counselors, but at this point feels to have many things to focus on. Emotional support offered. Plan: Referrals pending at [facility] and [facility]; SW to follow up with updates on d/c planning as well as list of counselors. -ELIZABETH Morel
--- NOTE | 2024-06-10 14:40 | CASEMGMT ---
Addendum entered by Janet Weston 06/11/24 12:13: [facility] declined. SW updated. Janet Weston DC Planning Asst. Addendum entered by Janet Weston 06/11/24 09:01: Call placed to [facility]. They are waiting on approval from church business administrator. Jaent Weston DC Planning Asst. Addendum entered by Janet Weston 06/10/24 14:49: [facility] has declined d/t no bed availability. Janet Weston DC Planning Asst. Original Note: Discharge Planning Referral sent to [facility] and [facility]. Janet Weston DC Planning Asst.
[2024-06-10 15:36] VITALS: BP 132/90; PULSE 96; RESP 16; TEMP 36.4; O2SAT 97
[2024-06-10 19:57] VITALS: BP 139/93; PULSE 96; RESP 18; TEMP 36.4; O2SAT 96
[2024-06-11 02:18] VITALS: BP 131/90; PULSE 85; RESP 16; TEMP 37.2; O2SAT 95
[2024-06-11] MEDS: oxyCODONE 5 MG Tablet PO ×6 (02:20→23:00)
[2024-06-11] MEDS: Acetaminophen 500 MG Tablet 1000 MG PO ×3 (06:43→21:02)
[2024-06-11] MEDS: cycloBENZAPRine HCl 5 MG TABLET PO ×3 (06:43→21:02)
[2024-06-11 08:04] VITALS: BP 130/95; PULSE 88; RESP 16; TEMP 36.5; O2SAT 96
[2024-06-11] MEDS: Lidocaine 5% Patch 1 PATCH TOPICAL (08:06)
[2024-06-11] MEDS: Pantoprazole Sodium 40 MG Tablet PO (08:06)
--- NOTE | 2024-06-11 12:48 | CASEMGMT ---
Discharge Planning Referral sent to [facility]. Pt requested referral to [facility] but they are full with no beds opening in the near future. Janet Weston DC Planning Asst.
--- NOTE | 2024-06-11 12:55 | CASEMGMT ---
Addendum entered by Marlee Alexis 06/11/24 16:02: [facility] accepted referral. [facility] accepted referral and precert started, as [facility] is pt FOC. SW remains available to follow. Physician updated. Bedside nurse updated. JUANITO Pimentel Original Note: Social Work- [facility] declined at [facility], [facility], and [facility]. Referral pending to [facility]. SW completed referral to [facility] to explore all options for pt placement at d/c, as pt feels he cannot return home at this time d/t being a 2 person assist for transfers and a 2 person CGA for ambulation. Pt recent therapy notes indicate that pt ambulated 15' and yelled out in pain during transfers. SW remains available to follow for discharge planning. JUANITO Pimentel
[2024-06-11 14:00] VITALS: BP 145/100; PULSE 115; RESP 18; TEMP 36.4; O2SAT 96
--- NOTE | 2024-06-11 14:16 | PN.HOSP_ITS ---
Reason for Visit Reason for Visit: Diagnoses Radiculopathy, lumbar region (06/09/24) Other malaise (06/09/24) Contusion of unspecified back wall of thorax, initial encounter (06/09/24) Wedge compression fracture of unspecified lumbar vertebra, initial encounter for closed fracture (06/09/24) Wedge compression fracture of second lumbar vertebra, initial encounter for closed fracture (06/09/24) Wedge compression fracture of third lumbar vertebra, initial encounter for closed fracture (06/09/24) Unspecified fall, initial encounter (06/09/24) Objective Data Objective Data Vital Signs: Vital Signs Temp Pulse Resp BP Pulse Ox O2 Del Method O2 Flow Rate 97.7 F L 88 16 130/95 H 96 Room Air 2 06/11/24 08:04 06/11/24 08:04 06/11/24 08:04 06/11/24 08:04 06/11/24 08:04 06/11/24 08:04 06/08/24 07:48 Oxygen Flow Rate (L/min) 2 Oxygen Delivery Method Room Air Weight: 363 lb 2.397 oz Body Mass Index (BMI) 47.9 Intake & Output: Intake and Output for Last 24 Hours 06/09/24 06/10/24 06/11/24 23:59 23:59 23:59 Intake Total 850 / 1150 2100 / 3025 1645 / 1645 Output Total 150 / 375 1600 / 2275 1800 / 1800 Balance 700 / 775 500 / 750 -155 / -155 Lab / Micro Data 06/10/24 04:07 06/10/24 04:07 Physical Exam Narrative Seen and examined The patient had local back injection on 06/08/2024. States the right lower leg feels better but thigh is still more stiff mainly on anterior lateral compartment. Many family members present. Pain is better and patient can lift her right lower extremity. No fever. 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 Physical exam General: Alert, Oriented x3, Cooperative, in mild pain on pain medication. Morbid obesity BMI 48.0 kg/m? HEENT: Atraumatic, PERRLA, EOMI, Normocephalic Oral: No Gingival or Mucosal Lesions/ Ulcerations Neck: Supple, No JVD, Negative Carotid Bruits Chest wall/Lungs: Air entry diminished in bilateral lung bases. No crepitation/rhonchi Cardiovascular: Regular rate, Regular Rhythm, Normal S1, Normal S2, No M/G/R Abdomen: Bowel Sounds Present, Soft, Non Tender, Non-Distended : No dysuria. No renal angle tenderness. No suprapubic tenderness. Extremities: No edema, Capillary Refill Less than 3 Seconds Skin: Maculopapular rash over back from sweating. Musculoskeletal: Mild soreness in lumbar area. Muscle strength 4/5 at right knee and hip. Muscle strength 4+/5 at left knee and hip. Neurological: Cranial nerves II-XII grossly intact, DTR 2+/4. No acute focal neurological deficit. Psych/Mental Status: Normal Affect, Appropriate. Assessment & Plan Assessment/Plan (1) Lumbar compression fracture: QUALIFIERS: Encounter type: initial encounter Lumbar vertebra fracture level: L3 Qualified Code(s): S32.030A - Wedge compression fracture of third lumbar vertebra, initial encounter for closed fracture (2) Fall: (3) Debility: PLAN: Plan Patient is a 48-year-old male who presented [facility] ED on 06/03/2024 with low back pain after a fall.Patient had fall from the ladder and landed on his back at home. 1. Acute L2 and L3 compression fractures after fall from ladder with intractable low back pain and acute debility ? PT/OT/case management following. Pain management following. CT brain and C- spine unremarkable. CT chest abdomen pelvis showed no intrathoracic or intra- abdominal issues, did show concern for possible lumbar fracture. MRI lumbar spine showed acute L2 and L3 compression fractures with minimal height loss of vertebrae and no nerve issues noted. Discussed with Dr. Landry with orthopedics and no surgical needs at this time. Treating with medications but unfortunately patient has not shown much improvement in pain control with movement. Was given Toradol and on Flexeril 5 mg 3 times daily scheduled. On scheduled Tylenol, lidocaine patch, p.o. oxycodone and IV Dilaudid as needed for now. 06/07 was scheduled for pain injection at the back but postponed for tomorrow. 06/08: Patient had L2-L3 epidural steroid injection. Pain is better. PT and OT. Depending upon improvement in pain and mobility, will decide about either home discharge or SNF 06/09: Continue PT and OT. Patient will likely need SNF. 06/10: Pre-CERT pending. Continue PT and OT. Gradual improvement in RLE muscle strength. Diffuse maculopapular rash in back from sweating/heat rash:, Calmoseptine ointment and moisturizer ordered 06/11: Improvement in right knee power mild extension and flexion. Right thigh is still weak. Continue PT and OT. 2. Morbid obesity ? BMI 48 on admit. Encouraged lifestyle modifications. Complicates hospital course, care and prognosis. 3. Acute grief state ? Per patient's sister on admission, patient's recently within the last few weeks. Will discuss with patient on any needs regarding counseling services he may have on discharge. DVT prophylaxis: Lovenox twice daily CODE STATUS: DNR CCA, DNI Charges/Coding Visit Charges Inpatient E&M: 42705 Subs Hosp L2
--- NOTE | 2024-06-11 16:02 | CASEMGMT ---
Social Work- SW met with pt to discuss pt preferences at discharge. SW introduced self and role. SW provided updates on referral declinations and acceptances. SW provided education on SNF vs [facility], insurance coverages, therapy expectations, etc. Pt preference is [facility]. Pt agreeable to [facility] if insurance will not cover a [facility] level of care. Pt reports that he is motivated to return home [place] and is realistic that he currently cannot do so at the current level of function. SW will remain available to follow. Plan: [facility]; pending precert JUANITO Pimentel
--- NOTE | 2024-06-11 16:32 | CASEMGMT ---
Social Work- SW received notice of [facility] insurance denial. SW provided physician with the following peer-to peer information: The attending physician, nurse practitioner, or physician ob gyn physician assistant who is actively providing care may schedule a phone conversation within 14 calendar days of the denial by calling (Medical: [phone]) option 1, then option 2 prior to filing an appeal. MMO reports: Based on the information submitted by your provider, it is noted that there is no documentation indicating the need for nursing care daily or the close supervision of a rehabilitation doctor multiple times a week. MMO reports : Based on CURRENT clinical we are anticipating member will be discharged to SNF. SW remains available to follow. Plan: [facility]; if MMO [id number] completed. Otherwise, [facility]; skilled level of care pending precert JUANITO Pimentel
[2024-06-11 20:00] VITALS: BP 129/92; PULSE 98; RESP 18; TEMP 36.6; O2SAT 95
[2024-06-11] MEDS: Menthol/Lanolin/Calamine/Znox 113 GM Tube 1 APPLIC TOPICAL (21:02)
[2024-06-11] MEDS: Senna/Docusate Sodium 1 Tablet 2 TABLET PO (21:02)
[2024-06-12 02:30] VITALS: BP 140/98; PULSE 92; RESP 16; TEMP 36.7; O2SAT 97
[2024-06-12] MEDS: oxyCODONE 5 MG Tablet PO ×4 (03:05→20:09)
[2024-06-12] MEDS: Acetaminophen 500 MG Tablet 1000 MG PO ×3 (05:28→20:10)
[2024-06-12] MEDS: cycloBENZAPRine HCl 5 MG TABLET PO ×3 (05:29→20:09)
[2024-06-12 08:00] VITALS: BP 149/95; PULSE 101; RESP 16; TEMP 37.1; O2SAT 98
[2024-06-12] MEDS: Polyethylene Glycol 3350 17 GM PACKET PO ×2 (10:06→20:10)
[2024-06-12] MEDS: Pantoprazole Sodium 40 MG Tablet PO (10:06)
[2024-06-12] MEDS: Senna/Docusate Sodium 1 Tablet 2 TABLET PO ×2 (10:06→20:10)
[2024-06-12] MEDS: Lidocaine 5% Patch 1 PATCH TOPICAL (10:06)
--- NOTE | 2024-06-12 10:34 | CASEMGMT ---
Social Work- MAGY met with pt to advise that insurance decline [facility] level of care. MAGY had received notice that TCU would accept pt pending precert if pt willing to keep bed from floor. Charge nurse was consulted by MAGY and reports this is possible. MAGY relayed this information to pt, who is acceptable to keeping bed and admitting to TCU following precert. TCU admissions notified. Plan: TCU; pending precert JUANITO Pimentel
[2024-06-12] MEDS: Menthol/Lanolin/Calamine/Znox 113 GM Tube 1 APPLIC TOPICAL ×2 (13:57→20:10)
--- NOTE | 2024-06-12 14:49 | PCM.PN.HOSP ---
Reason for Visit Reason for Visit: Diagnoses Radiculopathy, lumbar region (06/09/24) Other malaise (06/09/24) Contusion of unspecified back wall of thorax, initial encounter (06/09/24) Wedge compression fracture of unspecified lumbar vertebra, initial encounter for closed fracture (06/09/24) Wedge compression fracture of second lumbar vertebra, initial encounter for closed fracture (06/09/24) Wedge compression fracture of third lumbar vertebra, initial encounter for closed fracture (06/09/24) Unspecified fall, initial encounter (06/09/24) Objective Data Objective Data Vital Signs: Vital Signs Temp Pulse Resp BP Pulse Ox O2 Del Method O2 Flow Rate 98.7 F 101 H 16 149/95 H 98 Room Air 2 06/12/24 08:00 06/12/24 08:00 06/12/24 08:00 06/12/24 08:00 06/12/24 08:00 06/12/24 08:00 06/08/24 07:48 Oxygen Flow Rate (L/min) 2 Oxygen Delivery Method Room Air Weight: 363 lb 2.397 oz Body Mass Index (BMI) 47.9 Intake & Output: Intake and Output for Last 24 Hours 06/10/24 06/11/24 06/12/24 23:59 23:59 23:59 Intake Total 2100 / 3025 1645 / 1645 Output Total 1600 / 2275 1800 / 1800 Balance 500 / 750 -155 / -155 Lab / Micro Data 06/10/24 04:07 06/10/24 04:07 Physical Exam Narrative Seen and examined The patient had local back injection on 06/08/2024. Gradual improvement in right thigh and lower leg. Pain is better and patient can lift her right lower extremity. No fever. 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 Physical exam General: Alert, Oriented x3, Cooperative, in mild pain on pain medication. Morbid obesity BMI 48.0 kg/m? HEENT: Atraumatic, PERRLA, EOMI, Normocephalic Oral: No Gingival or Mucosal Lesions/ Ulcerations Neck: Supple, No JVD, Negative Carotid Bruits Chest wall/Lungs: Air entry diminished in bilateral lung bases. No crepitation/rhonchi Cardiovascular: Regular rate, Regular Rhythm, Normal S1, Normal S2, No M/G/R Abdomen: Bowel Sounds Present, Soft, Non Tender, Non-Distended : No dysuria. No renal angle tenderness. No suprapubic tenderness. Extremities: No edema, Capillary Refill Less than 3 Seconds Skin: Maculopapular rash over back from sweating. Musculoskeletal: Muscle strength 4/5 at right knee and hip. Muscle strength 5/5 at left knee and hip. Neurological: Cranial nerves II-XII grossly intact, DTR 2+/4. No acute focal neurological deficit. Psych/Mental Status: Normal Affect, Appropriate. Assessment & Plan Assessment/Plan (1) Lumbar compression fracture: QUALIFIERS: Encounter type: initial encounter Lumbar vertebra fracture level: L3 Qualified Code(s): S32.030A - Wedge compression fracture of third lumbar vertebra, initial encounter for closed fracture (2) Fall: (3) Debility: PLAN: Plan Patient is a 48-year-old male who presented [facility] ED on 06/03/2024 with low back pain after a fall.Patient had fall from the ladder and landed on his back at home. 1. Acute L2 and L3 compression fractures after fall from ladder with intractable low back pain and acute debility ? PT/OT/case management following. Pain management following. CT brain and C-spine unremarkable. CT chest abdomen pelvis showed no intrathoracic or intra-abdominal issues, did show concern for possible lumbar fracture. MRI lumbar spine showed acute L2 and L3 compression fractures with minimal height loss of vertebrae and no nerve issues noted. Discussed with Dr. Landry with orthopedics and no surgical needs at this time. Treating with medications but unfortunately patient has not shown much improvement in pain control with movement. Was given Toradol and on Flexeril 5 mg 3 times daily scheduled. On scheduled Tylenol, lidocaine patch, p.o. oxycodone and IV Dilaudid as needed for now. 06/07 was scheduled for pain injection at the back but postponed for tomorrow. 06/08: Patient had L2-L3 epidural steroid injection. Pain is better. PT and OT. Depending upon improvement in pain and mobility, will decide about either home discharge or SNF 06/09: Continue PT and OT. Patient will likely need SNF. 06/10: Pre-CERT pending. Continue PT and OT. Gradual improvement in RLE muscle strength. Diffuse maculopapular rash in back from sweating/heat rash:, Calmoseptine ointment and moisturizer ordered 06/11: Improvement in right knee power mild extension and flexion. Right thigh is still weak. Continue PT and OT. 06/12: Acute rehab was denied. 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 On oxycodone. Dilaudid discontinued 2. Morbid obesity ? BMI 48 on admit. Encouraged lifestyle modifications. Complicates hospital course, care and prognosis. 3. Acute grief state ? Per patient's sister on admission, patient's recently within the last few weeks. Will discuss with patient on any needs regarding counseling services he may have on discharge. DVT prophylaxis: Lovenox twice daily CODE STATUS: DNR CCA, DNI Charges/Coding Visit Charges Inpatient E&M: 56923 Subs Hosp L2
[2024-06-12 15:27] VITALS: BP 130/97; PULSE 90; RESP 18; TEMP 36.9; O2SAT 98
[2024-06-12 16:00] VITALS: RESP 18
[2024-06-12 21:37] VITALS: BP 140/91; PULSE 103; RESP 16; TEMP 36.6; O2SAT 96
[2024-06-13] MEDS: oxyCODONE 5 MG Tablet PO ×5 (02:37→22:29)
[2024-06-13 02:44] VITALS: BP 147/100; PULSE 86; RESP 16; TEMP 36.4; O2SAT 96
[2024-06-13] MEDS: Acetaminophen 500 MG Tablet 1000 MG PO ×3 (05:07→22:29)
[2024-06-13] MEDS: cycloBENZAPRine HCl 5 MG TABLET PO ×3 (05:07→22:29)
[2024-06-13 08:00] VITALS: PULSE 82; RESP 18; O2SAT 93
[2024-06-13 08:31] VITALS: BP 130/75; PULSE 88; RESP 18; TEMP 36.8; O2SAT 95
[2024-06-13] MEDS: Lidocaine 5% Patch 1 PATCH TOPICAL (10:04)
[2024-06-13] MEDS: Polyethylene Glycol 3350 17 GM PACKET PO ×2 (10:04→22:29)
[2024-06-13] MEDS: Senna/Docusate Sodium 1 Tablet 2 TABLET PO ×2 (10:05→22:29)
[2024-06-13] MEDS: Pantoprazole Sodium 40 MG Tablet PO (10:05)
--- NOTE | 2024-06-13 16:01 | PN.HOSP_ITS ---
Reason for Visit Reason for Visit: Diagnoses Radiculopathy, lumbar region (06/09/24) Other malaise (06/09/24) Contusion of unspecified back wall of thorax, initial encounter (06/09/24) Wedge compression fracture of unspecified lumbar vertebra, initial encounter for closed fracture (06/09/24) Wedge compression fracture of second lumbar vertebra, initial encounter for closed fracture (06/09/24) Wedge compression fracture of third lumbar vertebra, initial encounter for closed fracture (06/09/24) Unspecified fall, initial encounter (06/09/24) Objective Data Objective Data Vital Signs: Vital Signs Temp Pulse Resp BP Pulse Ox O2 Del Method O2 Flow Rate 98.2 F 88 18 130/75 H 95 Room Air 2 06/13/24 08:31 06/13/24 08:31 06/13/24 08:31 06/13/24 08:31 06/13/24 08:31 06/13/24 08:31 06/08/24 07:48 Oxygen Flow Rate (L/min) 2 Oxygen Delivery Method Room Air Weight: 363 lb 2.397 oz Body Mass Index (BMI) 47.9 Intake & Output: Intake and Output for Last 24 Hours 06/11/24 06/12/24 06/13/24 23:59 23:59 23:59 Intake Total 1645 / 1645 1600 / 1600 1500 / 1500 Output Total 1800 / 1800 1000 / 1000 Balance -155 / -155 1600 / 1600 500 / 500 Lab / Micro Data 06/10/24 04:07 06/10/24 04:07 Physical Exam Narrative Seen and examined The patient had local back injection on 06/08/2024. Gradual improvement in right upper thigh and lower leg. Acute rehab denied Pain is better and patient can lift her right lower extremity. No fever. 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 Physical exam General: Alert, Oriented x3, Cooperative, in mild pain on pain medication. Morbid obesity BMI 48.0 kg/m? HEENT: Atraumatic, PERRLA, EOMI, Normocephalic Oral: No Gingival or Mucosal Lesions/ Ulcerations Neck: Supple, No JVD, Negative Carotid Bruits Chest wall/Lungs: Air entry diminished in bilateral lung bases. No crepitation/rhonchi Cardiovascular: Regular rate, Regular Rhythm, Normal S1, Normal S2, No M/G/R Abdomen: Bowel Sounds Present, Soft, Non Tender, Non-Distended : No dysuria. No renal angle tenderness. No suprapubic tenderness. Extremities: No edema, Capillary Refill Less than 3 Seconds Skin: Maculopapular rash over back from sweating. Musculoskeletal: Muscle strength 4/5 at right knee and hip. Muscle strength 5/5 at left knee and hip. Neurological: Cranial nerves II-XII grossly intact, DTR 2+/4. No acute focal neurological deficit. Psych/Mental Status: Normal Affect, Appropriate. Assessment & Plan Assessment/Plan (1) Lumbar compression fracture: QUALIFIERS: Encounter type: initial encounter Lumbar vertebra fracture level: L3 Qualified Code(s): S32.030A - Wedge compression fracture of third lumbar vertebra, initial encounter for closed fracture (2) Fall: (3) Debility: PLAN: Plan Patient is a 48-year-old male who presented [facility] ED on 06/03/2024 with low back pain after a fall.Patient had fall from the ladder and landed on his back at home. 1. Acute L2 and L3 compression fractures after fall from ladder with intractable low back pain and acute debility ? PT/OT/case management following. Pain management following. CT brain and C- spine unremarkable. CT chest abdomen pelvis showed no intrathoracic or intra- abdominal issues, did show concern for possible lumbar fracture. MRI lumbar spine showed acute L2 and L3 compression fractures with minimal height loss of vertebrae and no nerve issues noted. Discussed with Dr. Landry with orthopedics and no surgical needs at this time. Treating with medications but unfortunately patient has not shown much improvement in pain control with movement. Was given Toradol and on Flexeril 5 mg 3 times daily scheduled. On scheduled Tylenol, lidocaine patch, p.o. oxycodone and IV Dilaudid as needed for now. 06/07 was scheduled for pain injection at the back but postponed for tomorrow. 06/08: Patient had L2-L3 epidural steroid injection. Pain is better. PT and OT. Depending upon improvement in pain and mobility, will decide about either home discharge or SNF 06/09: Continue PT and OT. Patient will likely need SNF. 06/10: Pre-CERT pending. Continue PT and OT. Gradual improvement in RLE muscle strength. Diffuse maculopapular rash in back from sweating/heat rash:, Calmoseptine ointment and moisturizer ordered 06/11: Improvement in right knee power mild extension and flexion. Right thigh is still weak. Continue PT and OT. 06/12: Acute rehab was denied. 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 On oxycodone. Dilaudid discontinued 06/13: embedded case manager has already applied for a SNF. Follow-up tomorrow. 2. Morbid obesity ? BMI 48 on admit. Encouraged lifestyle modifications. Complicates hospital course, care and prognosis. 3. Acute grief state ? Per patient's sister on admission, patient's recently within the last few weeks. Will discuss with patient on any needs regarding counseling services he may have on discharge. DVT prophylaxis: Lovenox twice daily CODE STATUS: DNR CCA, DNI Charges/Coding Visit Charges Inpatient E&M: 61833 Subs Hosp L2
[2024-06-13 16:16] VITALS: BP 144/93; PULSE 92; RESP 17; TEMP 36.7; O2SAT 97
[2024-06-13 20:00] VITALS: BP 137/93; PULSE 97; RESP 18; TEMP 36; O2SAT 95
[2024-06-14 02:00] VITALS: BP 135/101; PULSE 90; RESP 18; TEMP 36.1; O2SAT 93
[2024-06-14] MEDS: oxyCODONE 5 MG Tablet PO ×3 (02:43→12:52)
[2024-06-14] MEDS: Acetaminophen 500 MG Tablet 1000 MG PO (06:52)
[2024-06-14] MEDS: cycloBENZAPRine HCl 5 MG TABLET PO (06:54)
[2024-06-14 09:16] VITALS: BP 135/93; PULSE 73; RESP 16; TEMP 36.2; O2SAT 97
--- NOTE | 2024-06-14 09:24 | CASEMGMT ---
Social Work- MAGY received notice from TCU admissions that precert has been obtained. SW notified physician and pt. Pt will need to take his bed from the floor over; previously approved by charge nurse. Plan: TCU; skilled level of care JUANITO Pimentel
[2024-06-14] MEDS: Lidocaine 5% Patch 1 PATCH TOPICAL (09:27)
[2024-06-14] MEDS: Pantoprazole Sodium 40 MG Tablet PO (09:28)
[2024-06-14] MEDS: Polyethylene Glycol 3350 17 GM PACKET PO (09:28)
[2024-06-14] MEDS: Senna/Docusate Sodium 1 Tablet 2 TABLET PO (09:28)
--- NOTE | 2024-06-14 09:41 | TREXTCAR_ITS ---
Diet Diet Order/Speech Therapy: 06/11/24 13:50 Diet: Cardiac: Calorie-Controlled Food consistency:: Regular Liquid Consistency:: Regular/Thin Diet Comments: salt packet is ok How many daily calories?: 2200 calorie Routine Orders/Code Status Suppository Type: Dulcolax 10mg Suppository Frequency: Daily PRN DC O2, CPAP, BIPAP needs Home O2 Discharge instructions: No Wound(s) LEFT KN EE: Wound Type: Abrasion LOWER LEFT BACK: Wound Type: INJECTION SITE right buttock: Wound Type: Abrasion Therapies Extremity Affected:: Bilateral Lower Physical Therapy: Eval and Treat Occupational Therapy: Eval and Treat Speech Therapy: Eval and Treat Problem/Diagnosis (1) Lumbar compression fracture: Status: Acute Code(s): S32.000A - Wedge compression fracture of unspecified lumbar vertebra, initial encounter for closed fracture (2) Fall: Status: Acute Code(s): W19.XXXA - Unspecified fall, initial encounter (3) Debility: Status: Acute Code(s): R53.81 - Other malaise Plan Patient is a 48-year-old male who presented [facility] ED on 06/03/2024 with low back pain after a fall.Patient had fall from the ladder and landed on his back at home. 1. Acute L2 and L3 compression fractures after fall from ladder with intractable low back pain and acute debility ? PT/OT/case management following. Pain management following. CT brain and C- spine unremarkable. CT chest abdomen pelvis showed no intrathoracic or intra- abdominal issues, did show concern for possible lumbar fracture. MRI lumbar spine showed acute L2 and L3 compression fractures with minimal height loss of vertebrae and no nerve issues noted. Discussed with Dr. Landry with orthopedics and no surgical needs at this time. Treating with medications but unfortunately patient has not shown much improvement in pain control with movement. Was given Toradol and on Flexeril 5 mg 3 times daily scheduled. On scheduled Tylenol, lidocaine patch, p.o. oxycodone and IV Dilaudid as needed for now. 06/07 was scheduled for pain injection at the back but postponed for tomorrow. 06/08: Patient had L2-L3 epidural steroid injection. Pain is better. PT and OT. Depending upon improvement in pain and mobility, will decide about either home discharge or SNF 06/09: Continue PT and OT. Patient will likely need SNF. 06/10: Pre-CERT pending. Continue PT and OT. Gradual improvement in RLE muscle strength. Diffuse maculopapular rash in back from sweating/heat rash:, Calmoseptine ointment and moisturizer ordered 06/11: Improvement in right knee power mild extension and flexion. Right thigh is still weak. Continue PT and OT. 06/12: Acute rehab was denied. 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 On oxycodone. Dilaudid discontinued 06/13: renewable energy division manager has already applied for a SNF. Follow-up tomorrow. 2. Morbid obesity ? BMI 48 on admit. Encouraged lifestyle modifications. Complicates hospital course, care and prognosis. 3. Acute grief state ? Per patient's sister on admission, patient's recently within the last few weeks. Will discuss with patient on any needs regarding counseling services he may have on discharge. DVT prophylaxis: Lovenox twice daily CODE STATUS: DNR CCA, DNI Allergies/Procedures Done in Hospital Allergies Penicillins (PCN) Allergy (Verified 10/15/21 11:24) Other Type of Care/Length of Stay Estimated LOS: Convalescent Care Less Than 30 days Type of Care Needed: Skilled Rehab Potential: Good Prognosis: Good Additional Orders/Day of Discharge Day of Discharge: 06/14/24 Dietary and Speech Recommendations Dietitian Recommendations/Changes: Will adjust diet to 2200 calorie- controlled/cardiac (low-fat) due to morbid obesity BMI 47.9. Salt packet on meal trays is ok. Diet education as pt willing and ready for lifestyle change. Discharge Plan Admission Admit Date/Time: 06/09/24 14:37 Primary Reason for Your Visit: Severe back pain with radiation sciatica in nature Attending Provider: Barry Killian Primary Care Provider: Delaney Nunez Consulting Providers: Cristela Cifuentes; Jaydon Munson; Delmar Knight Instructions Patient Instructions: ED Back Contusion, ED Contusion, Lower Extremity, ED Mechanical Fall Discharge Orders/Prescriptions Prescriptions: New naproxen [Naprosyn] 500 mg tablet 500 mg PO BID PRN (Reason: pain) Qty: 20 0RF acetaminophen 500 mg Tablet 1,000 mg PO Q8 Qty: 0 0RF Rx Instructions: 1 g every 8 hourly for 7 days and then as needed. bisacodyl 10 mg Suppository 10 mg OH DAILY PRN (Reason: constipation) Qty: 0 0RF cyclobenzaprine 5 mg Tablet 5 mg PO TID Qty: 0 0RF sennosides-docusate sodium [Stimulant Laxative Plus] 8.6-50 mg Tablet 2 tab PO BID Qty: 0 0RF oxycodone 5 mg Tablet 5 - 10 mg PO Q4H PRN PRN (Reason: Pain Score 4-10) Qty: 0 0RF Continued ascorbic acid (vitamin C) [Acerola C] 500 mg tablet,chewable 500 mg PO DAILY Referrals / Follow Up: Delaney Nunez DO [Primary Care Provider] - 3-5 Days Jaydon Munson MD [Med Staff - Active Staff] - Within 2 Weeks Disposition Disposition (needs filled in before D/C Order can be placed): Senior Living Facility Charges/Coding Visit Charges Inpatient E&M: 46875 Disch Hosp >30min (1) Lumbar compression fracture Qualifiers: Encounter type: initial encounter Lumbar vertebra fracture level: L3 Qualified Code(s): S32.030A - Wedge compression fracture of third lumbar verteb ra, initial encounter for closed fracture
--- NOTE | 2024-06-14 09:46 | PCM.DC.SUM ---
Providers Date of Admission: 06/09/24 Date of Discharge: 06/14/24 Primary Care Physician: Dr. Delaney Nunez, DO Consultations 06/04/24 09:29 Consult: Pain Management Routine Consulting Provider: Jaydon Munson Reason for Consult: acute L3 compression fx w/ significant pain, no surgery per ortho EMERGENT Consult: No MD Notified: Yes Date Notified: 06/04/24 Time Notified: 11:37 Method of Notification: office Reason For Visit: BACK PAIN AFTER FALL Diagnosis Discharge Diagnosis (1) Lumbar compression fracture: Status: Acute Code(s): S32.000A - Wedge compression fracture of unspecified lumbar vertebra, initial encounter for closed fracture Qualifiers: Encounter type: initial encounter Lumbar vertebra fracture level: L3 Qualified Code(s): S32.030A - Wedge compression fracture of third lumbar vertebra, initial encounter for closed fracture (2) Fall: Status: Acute Code(s): W19.XXXA - Unspecified fall, initial encounter (3) Debility: Status: Acute Code(s): R53.81 - Other malaise Plan Patient is a 48-year-old male who presented [facility] ED on 06/03/2024 with low back pain after a fall.Patient had fall from the ladder and landed on his back at home. 1. Acute L2 and L3 compression fractures after fall from ladder with intractable low back pain and acute debility ? PT/OT/case management following. Pain management following. CT brain and C-spine unremarkable. CT chest abdomen pelvis showed no intrathoracic or intra-abdominal issues, did show concern for possible lumbar fracture. MRI lumbar spine showed acute L2 and L3 compression fractures with minimal height loss of vertebrae and no nerve issues noted. Discussed with Dr. Landry with orthopedics and no surgical needs at this time. Treating with medications but unfortunately patient has not shown much improvement in pain control with movement. Was given Toradol and on Flexeril 5 mg 3 times daily scheduled. On scheduled Tylenol, lidocaine patch, p.o. oxycodone and IV Dilaudid as needed for now. 06/07 was scheduled for pain injection at the back but postponed for tomorrow. 06/08: Patient had L2-L3 epidural steroid injection. Pain is better. PT and OT. Depending upon improvement in pain and mobility, will decide about either home discharge or SNF 06/09: Continue PT and OT. Patient will likely need SNF. 06/10: Pre-CERT pending. Continue PT and OT. Gradual improvement in RLE muscle strength. Diffuse maculopapular rash in back from sweating/heat rash:, Calmoseptine ointment and moisturizer ordered 06/11: Improvement in right knee power mild extension and flexion. Right thigh is still weak. Continue PT and OT. 06/12: Acute rehab was denied. 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 On oxycodone. Dilaudid discontinued 06/13: security program manager has already applied for a SNF. Follow-up tomorrow. 06/14: Patient feeling improvement in the stiffness although slow. Getting discharged to SNF. 2. Morbid obesity ? BMI 48 on admit. Encouraged lifestyle modifications. Complicates hospital course, care and prognosis. 3. Acute grief state ? Per patient's sister on admission, patient's recently within the last few weeks. Will discuss with patient on any needs regarding counseling services he may have on discharge. DVT prophylaxis: Lovenox twice daily CODE STATUS: DNR CCA, DNI Discharge medication reconciliation done. Discharge follow-up instructions completed. Discharge process discussed with the patient and all questions were answered to patient's satisfaction. Follow with PCP in 1 to 2 weeks Total time spent, exact 35 minutes on discharge meds reconciliation, examination, coordination of care with nurses and ancillary staff, review of imaging and blood test and discussion with the patient on follow-up instructions. Medications at Discharge Home Medications ascorbic acid (vitamin C) 500 mg chewable tablet (Acerola C) 500 mg PO DAILY 06/03/24 naproxen 500 mg tablet (Naprosyn) 500 mg PO BID PRN pain #20 tabs 06/03/24 acetaminophen 500 mg tablet 1,000 mg (2 x 500 mg) PO Q8 #0 tabs 06/14/24 bisacodyl 10 mg rectal suppository 10 mg IN DAILY PRN constipation #0 ea 06/14/24 cyclobenzaprine 5 mg tablet 5 mg PO TID #0 tabs 06/14/24 oxycodone 5 mg tablet 5 - 10 mg (1 - 2 x 5 mg) PO Q4H PRN PRN Pain Score 4-10 #0 tabs 06/14/24 sennosides 8.6 mg-docusate sodium 50 mg tablet (Stimulant Laxative Plus) 2 tab PO BID #0 tabs 06/14/24 Physical Exam Narrative Seen and examined The patient had local back injection on 06/08/2024. Gradual improvement in right upper thigh and lower leg. 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 Physical exam General: Alert, Oriented x3, Cooperative, in mild pain on pain medication. Morbid obesity BMI 48.0 kg/m? HEENT: Atraumatic, PERRLA, EOMI, Normocephalic Oral: No Gingival or Mucosal Lesions/ Ulcerations Neck: Supple, No JVD, Negative Carotid Bruits Chest wall/Lungs: Air entry diminished in bilateral lung bases. No crepitation/rhonchi Cardiovascular: Regular rate, Regular Rhythm, Normal S1, Normal S2, No M/G/R Abdomen: Bowel Sounds Present, Soft, Non Tender, Non-Distended : No dysuria. No renal angle tenderness. No suprapubic tenderness. Extremities: No edema, Capillary Refill Less than 3 Seconds Skin: Maculopapular rash over back from sweating. Musculoskeletal: Muscle strength 4/5 at right knee and hip. Muscle strength 5/5 at left knee and hip. Neurological: Cranial nerves II-XII grossly intact, DTR 2+/4. No acute focal neurological deficit. Psych/Mental Status: Normal Affect, Appropriate. Weight / BMI Weight Weight: 363 lb 2.397 oz Body Mass Index (BMI) 47.9 ABG / Lab / Microbiology Data 06/10/24 04:07 06/10/24 04:07 D/C Instructions DC O2, CPAP, BIPAP Needs Home O2 Discharge instructions: No Meaningful Use Info Meaningful Use Meaningful Use Diagnoses (Choose all that apply): None applicable Ischemic Stroke Statin Dosing Therapy Reference: STATIN DOSE THERAPY REFERENCE: * Patients > 75 years receive moderate or high dose statin therapy. * Patients 75 years or YOUNGER should receive HIGH intensity statin dose unless contraindicated. You will be required to document reason for non-treatment if statin daily dose does not meet guidelines. HIGH DOSE STATIN THERAPY DAILY Atorvastatin > than or = to 40 mg Rosuvastatin > than or = to 20 mg Amlodipine + Atorvastatin > than or = to 2.5/40 mg Ezetimibe + Simvastatin 10/80 mg Simvastatin 80mg Discharge Plan Admission Admit Date/Time: 06/09/24 14:37 Primary Reason for Your Visit: Severe back pain with radiation sciatica in nature Attending Provider: Barry Killian Primary Care Provider: Delaney Nunez Consulting Providers: Cristela Cifuentes; Jaydon Munson; Delmar Knight Instructions Patient Instructions: ED Back Contusion, ED Contusion, Lower Extremity, ED Mechanical Fall Discharge Orders/Prescriptions Prescriptions: New naproxen [Naprosyn] 500 mg tablet 500 mg PO BID PRN (Reason: pain) Qty: 20 0RF acetaminophen 500 mg Tablet 1,000 mg PO Q8 Qty: 0 0RF Rx Instructions: 1 g every 8 hourly for 7 days and then as needed. bisacodyl 10 mg Suppository 10 mg IN DAILY PRN (Reason: constipation) Qty: 0 0RF cyclobenzaprine 5 mg Tablet 5 mg PO TID Qty: 0 0RF sennosides-docusate sodium [Stimulant Laxative Plus] 8.6-50 mg Tablet 2 tab PO BID Qty: 0 0RF oxycodone 5 mg Tablet 5 - 10 mg PO Q4H PRN PRN (Reason: Pain Score 4-10) Qty: 0 0RF Continued ascorbic acid (vitamin C) [Acerola C] 500 mg tablet,chewable 500 mg PO DAILY Referrals / Follow Up: Delaney Nunez DO [Primary Care Provider] - 3-5 Days Jaydon Munson MD [Med Staff - Active Staff] - Within 2 Weeks Disposition Disposition (needs filled in before D/C Order can be placed): [facility] Charges/Coding Visit Charges Inpatient E&M: 90402 Disch Hosp >30min
--- NOTE | 2024-06-14 11:22 | CASEMGMT ---
Social Work- Precert obtained. Physician feels pt is medically ready to discharge. MAGY faxed clinicals to TCU. Pt updated. Plan: TCU; skilled level of care JUANITO Pimentel
[2024-06-14 12:50] VITALS: BP 142/90; PULSE 107; RESP 18; TEMP 36.7; O2SAT 93
== END 2024-06-14 13:35 | disposition skilled nursing facility (03) | DRG 552 ==
LOC: ED 15:44 → MS3 17:08
PROVIDERS: Anesthesiology; Hospitalist; Admitting Provider Internal Medicine; Emergency Provider Emergency Medicine; PCP Internal Medicine; Visit Provider Internal Medicine
PROC: 3E0S3BZ Introduction of Anesthetic Agent into Epidural Space, Percutaneous Approach (ICD-10-PCS; CPT 62322; principal; 2024-06-08 08:25)
DX: S32.020A Wedge compression fracture of second lumbar vertebra, initial encounter for closed fracture (principal); Z68.42 Body mass index [BMI] 45.0-49.9, adult; E66.813 Obesity, class 3; Z66 Do not resuscitate; S32.030A Wedge compression fracture of third lumbar vertebra, initial encounter for closed fracture; F43.20 Adjustment disorder, unspecified; M54.16 Radiculopathy, lumbar region; L74.0 Miliaria rubra; W11.XXXA Fall on and from ladder, initial encounter; Z63.4 Disappearance and death of family member
CPT/HCPCS: 36415; 70450; 71260; 72100; 72125; 72148; 73552; 74177; 76000; 80048; 80053; 83690; 85025; 85027; 85610; 93005; 97110; 97116; 97162; 97166; 97530; 97535; 99285; Q9967; A4216; J2405

== ENCOUNTER 2024-06-14 13:51 | Inpatient (IN) | payer OTHER, SELFPAY ==
[2024-06-14 14:02] VITALS: BP 141/98; PULSE 98; RESP 16; TEMP 36.5; O2SAT 94; BMI 46.6
--- NOTE | 2024-06-14 14:29 | NURSING ---
pt requesting x4 siderails up, this helps him reposition himself in bed to reduce pain in low back from L2-3 fractures.
[2024-06-14 14:54] VITALS: PULSE 90; RESP 16; O2SAT 95
[2024-06-14] MEDS: Acetaminophen 500 MG Tablet 1000 MG PO ×2 (15:14→22:04)
[2024-06-14] MEDS: cycloBENZAPRine HCl 5 MG TABLET PO ×2 (15:14→22:04)
[2024-06-14] MEDS: oxyCODONE 5 MG Tablet PO ×2 (17:21→22:02)
--- NOTE | 2024-06-14 18:37 | NURSING ---
dr Easton assessed pustules to rt buttocks. pustules noted to be opened. pt placed in contact isolation for shingles. pt also has rash to back, red raised bumps. pt sweaty, heat rash appearance.
--- NOTE | 2024-06-14 18:50 | PCM.HP.STD ---
[facility] - General General Date of Admission: 06/14/24 Date of Service: 06/14/24 Chief Complaint: Debility due to fall with vertebral fractures. HPI Narrative CHING ZACARIAS, is a 48 YO M with a past medical history obstructive sleep apnea who presented to the emergency department at [facility] on 06/03/2024 after falling off a ladder. He fell approximately 8 feet. He was on a ladder attempting to step onto a roof when the ladder slipped and actually fell on the last. He complained of pain in his back that radiated into his right leg. He also complained of tingling/numbness in the right leg. CT scan of the lumbosacral spine showed an L3 superior endplate fracture. He was admitted to the hospitalist service and an MRI was ordered. The MRI showed a acute superior endplate compression fracture of L3. There was associated marrow enhancement. There was no retropulsion of the posterior cortex and no significant signal abnormality in the pedicle/posterior elements. There was less than 25% vertebral body height loss. There was also a superior endplate compression fractures of L2 and L1 with less than 25% vertebral body height loss. There were multilevel degenerative changes in the lumbosacral spine resulting in spinal canal and neuroforaminal stenosis at multiple levels. There was bilateral L5 nerve root impingement. 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 Consult was obtained with Dr. Munson from pain management. On 06/08/2024 he underwent L2-L3 epidural steroid injection by Dr. Munson. He was transferred to the transitional care unit at [facility] on 06/14/2024 for strengthening/rehabilitation prior to returning home. [facility] Medical History Foraminal stenosis of lumbosacral region Morbid obesity with BMI of 45.0-49.9, adult Alcohol use CPAP (continuous positive airway pressure) dependence Non-smoker Home Medications ?Medication ?Instructions ?Recorded ?Last Taken ?Type ascorbic acid (vitamin C) 500 mg 500 mg PO DAILY supplement 06/03/24 06/03/24 History chewable tablet (Acerola C) naproxen 500 mg tablet (Naprosyn) 500 mg PO BID PRN pain #20 tabs 06/03/24 Unknown Rx acetaminophen 500 mg tablet 1,000 mg (2 x 500 mg) PO Q8 pain 06/14/24 Unknown Rx #0 tabs bisacodyl 10 mg rectal suppository 10 mg [place] DAILY PRN constipation #0 06/14/24 Unknown Rx ea cyclobenzaprine 5 mg tablet 5 mg PO TID muscle relaxer #0 tabs 06/14/24 Unknown Rx oxycodone 5 mg tablet 5 - 10 mg (1 - 2 x 5 mg) PO Q4H 06/14/24 Unknown Rx PRN PRN Pain Score 4-10 #0 tabs sennosides 8.6 mg-docusate sodium 2 tab PO BID stool softener #0 tabs 06/14/24 Unknown Rx 50 mg tablet (Stimulant Laxative Plus) Allergy/AdvReac Type Severity Reaction Status Date / Time Penicillins (PCN) Allergy Other Verified 10/15/21 11:24 Surgical History (Updated 06/14/24 @ 20:[address] Nikki Easton DO) Hx of colonoscopy Hx of appendectomy Social History (Updated 06/14/24 @ 20:[address] Nikki Easton DO) household members: other details: His 3 weeks prior to his fall Smoking Status: Never smoker ROS Constitutional Constitutional: Reports weakness; Denies anorexia, change in weight, chills, fatigue, fever(s) or night sweats Eyes Eyes: Denies blurry vision, change in vision, eye pain or loss of vision ENT HEENT: Denies abnormal hearing, dysphagia, headache(s), hearing loss, nasal congestion or sore throat Cardiovascular Cardiovascular: Denies chest pain, dyspnea on exertion, edema, lightheadedness, orthopnea, palpitations, paroxysmal nocturnal dyspnea or syncope Respiratory/Chest Respiratory/Chest: Denies cough, dyspnea, shortness of breath at rest, shortness of breath with exertion or wheezing Gastrointestinal Gastrointestinal: Reports constipation; Denies abdominal pain, diarrhea, dyspepsia, hematemesis, hematochezia, nausea or vomiting Genitourinary Genitourinary: Denies dysuria, hematuria, nocturia, urinary frequency, urinary hesitancy, urinary incontinence or urinary urgency Musculoskeletal Musculoskeletal: Reports back pain and radiating pain into limb; Denies joint pain, joint swelling or neck pain Integumentary Integumentary: Denies jaundice Neurologic Neurologic: Reports paresthesias RLE (Tingling/paresthesias and radicular pain in the right lower extremity status post fall); Denies confusion, disequilibrium, dizziness, focal weakness, headache(s), seizures or tremor(s) Psychiatric Psychiatric: Denies anxiety, depression, homicidal ideation or suicidal ideation Endocrine Endocrinology: Denies change in body appearance, polydipsia or polyuria Hematologic/Lymphatic Hematologic/Lymphatic: Denies easy bleeding, easy bruising or lymphadenopathy Allergic/Immunologic Allergic/Immunologic: Denies rhinitis, eczemia or asthma Vital Signs Vital Signs Vital Signs: 06/14/24 14:02 06/14/24 14:54 Temperature 97.7 F L Temperature Source Temporal Pulse Rate 98 90 Pulse Rhythm Regular Pulse Strength Normal (2+) Respiratory Rate 16 16 Respiratory Effort Normal Non-Labored Respiratory Depth Normal Respiratory Pattern Normal Blood Pressure 141/98 H Blood Pressure Mean 112 Blood Pressure Source Monitor Blood Pressure Position Semi-Fowlers Blood Pressure Location Right Arm Pulse Ox 94 95 Oxygen Delivery Method Room Air Room Air Weight Weight: 353 lb 13.471 oz Body Mass Index (BMI) 46.6 Physical Exam Const alert and oriented x3 Constitutional Narrative: Making good eye contact, appropriate. Lying in bed when I went to examine him. Has pain with trying to roll onto his side but was able to do it. General Appearance: cooperative, comfortable, well kempt and well developed HEENT head/scalp atraumatic HEENT Narrative: Dry mucous membranes, no evidence of thrush. Eyes PERRL, EOMs intact bilaterally, conjunctivae normal and no scleral icterus Eyes Narrative: No discharge from the eyes and no mattering of the eyelashes. Neck no lymphadenopathy, supple, no JVD and no carotid bruits Neck Narrative: Brisk carotid upstroke with excellent pulse volume. Chest Chest: symmetrical chest wall rise Resp normal respiratory effort, no use of accessory muscles and clear to auscultation bilaterally Resp Narrative: Not tachypneic and no conversational dyspnea. Effort and Inspection: able to speak in complete sentences Cardio regular rate, regular rhythm, S1 normal heart sound, S2 normal heart sound, no murmurs, no rub and no gallops Cardio Narrative: No ectopy GI normal to inspection, nondistended, normoactive bowel sounds, soft to palpation and non-tender GI Narrative: No guarding with palpation. Extremity Extremity Narrative: No clubbing or cyanosis. He has very mild edema of his ankles bilaterally. No atrophy of the muscles of the legs. Denies any history of VTE. Skin no jaundice Skin Narrative: He has a localized area of vesicular rash on his right buttocks which has the appearance of shingles. Pain is mild. Neuro oriented x3, CN's II-XII intact bilaterally and no focal motor deficits Neuro Narrative: Tingling in the right lower extremity and radicular pain in the right lower extremity. He says this has improved since the epidural. Motor Exam: strength 5/5 throughout Psych mental status grossly normal, thought process normal and cooperative Psych Narrative: Appropriate, making good eye contact. Able to stay on topic and focus. No flight of ideas. Does not appear anxious or depressed. Conversant and relating well to staff. Somewhat depressed due to pain and the recent passing of his 3 weeks ago. Assessment & Plan Assessment/Plan (1) Debility: (2) Fall: (3) Lumbar compression fracture: QUALIFIERS: Encounter type: initial encounter Lumbar vertebra fracture level: L3 Qualified Code(s): S32.030A - Wedge compression fracture of third lumbar vertebra, initial encounter for closed fracture (4) Lumbar radiculopathy, acute: (5) Foraminal stenosis of lumbosacral region: (6) Herpes zoster: QUALIFIERS: Herpes zoster complications: without complications Qualified Code(s): B02.9 - Zoster without complications PLAN: Plan PLAN PT for gait stability OT for ADL's Analgesics as needed Bowel protocol Fall precautions Assess for Anxiety/Depression GI prophylaxis -not necessary at this time. He denies a history of peptic ulcer disease and also denies heartburn. He has no nausea, vomiting or epigastric pain. DVT prophylaxis with Lovenox 40 mg subcu daily Follow up with PCP and Dr. Munson following DC from IP Rehab AM lab including BMP and CBC ordered Start acyclovir 800 mg 5 times daily for 7 days. I recommended to him that he get a Shingrix vaccine in the future Start Effexor XR 75 mg in the a.m. for depression and chronic pain. Recommended weight loss and discussed newer medications to help control appetite and strategies for weight loss. Charges/Coding Visit Charges Inpatient E&M: 71640 Init L1
[2024-06-14] MEDS: Senna/Docusate Sodium 1 Tablet 2 TABLET PO (22:04)
[2024-06-14] MEDS: Acyclovir 800 MG Tablet PO (22:06)
[2024-06-15] MEDS: oxyCODONE 5 MG Tablet PO ×4 (03:49→22:36)
[2024-06-15 05:51] LABS: Absolute Lymphocyte Count 2.36 X10^3/uL (0.83-4.51); Absolute Neutrophil Count 5.4 X10^3/uL (2.0-7.7); Basophil# 0.07 X10^3/uL; Basophil% 0.8 % (0-1); Eosinophils% 1.1 % (0-5); Hematocrit 45.9 % (40-54); Hemoglobin 15.3 g/dL (13.0-16.5); Lymphocyte # 2.36 X10^3/ul (0.83-4.51); Lymphocyte % 26.8 % (19-41); Mean Corp Hgb Conc 33.3 g/dL (32-36); Mean Corpuscular Hgb 29.5 pg (27.0-32.0); Mean Corpuscular Volume 88.4 fL (80-94); Monocyte# 0.88 X10^3/uL; NRBC Flagged by Analyzer 0 % (0-5); Neutrophil # 5.38 X10^3/uL (2.7-7.7); Platelet Count 377 K/mm3 (150-450); RBC Distribution Width CV 12.4 % (11.6-14.6); RBC Distribution Width SD 40.3 fl (35.1-43.9); Red Blood Count 5.19 M/mm3 (4.6-6.2); White Blood Count 8.8 K/mm3 (4.4-11.0)
[2024-06-15] MEDS: Enoxaparin 40 MG/0.4 ML Syringe SC (05:55)
[2024-06-15] MEDS: Acyclovir 800 MG Tablet PO ×5 (05:55→22:34)
[2024-06-15] MEDS: cycloBENZAPRine HCl 5 MG TABLET PO ×3 (05:55→22:32)
[2024-06-15] MEDS: Acetaminophen 500 MG Tablet 1000 MG PO ×3 (05:55→22:33)
[2024-06-15 06:12] LABS: Anion Gap 5 (5-15); BUN 14 mg/dL (7-18); BUN/Creat Ratio 15.9 RATIO (10-20); Chloride 105 mmol/L (98-107); Creatinine, Serum 0.88 mg/dL (0.70-1.30); EST Glomerular Filtration Rate 98 mL/min (>60); Est Glom Filt Rate - Afr Amer 119 mL/min (>60); Estimated Creatinine Clearance 162.83 ml/min; Glucose 99 mg/dL (74-106); Potassium 4.2 mmol/L (3.5-5.1); Sodium Level 136 mmol/L (136-145)
[2024-06-15] MEDS: Venlafaxine XR 75 MG Capsule PO (08:49)
[2024-06-15] MEDS: Senna/Docusate Sodium 1 Tablet 2 TABLET PO ×2 (08:50→22:32)
[2024-06-15] MEDS: Tuberculin,Purif.prot.deriv. 50 TU/ML Vial 0.1 ML ID (08:51)
[2024-06-15] MEDS: Ascorbic Acid 500 MG Tablet PO (08:56)
--- NOTE | 2024-06-15 11:48 | NURSING ---
Geodetic Advisor Note; Activity Asset: Mari Gerard is independent in his choice of daily activities. He was admitted due to shingles. He watches tv, reads, uses his smartphone and will rest while on ISO. Staff will visits weekly for social interaction and offer in room activities and respect his right to say no.
[2024-06-15 12:39] VITALS: BP 160/109; PULSE 106; RESP 16; TEMP 35.9; O2SAT 98
[2024-06-15] MEDS: Losartan Potassium 25 MG Tablet PO (12:39)
--- NOTE | 2024-06-15 13:41 | CASEMGMT ---
Social Work SW met with pt to complete inital assessment. SW introduced self and role of SW. Contacts and code status were verified. Pt states he has completed HCPOA and Living will but is unable to bring documents in and is uncertain who is listed as medical decision maker. SW educated pt to MMO benefit with NRD of 06/21 and that continued stay is not guaranteed. 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 Pt plans to regain strength and manage pain while in TCU with goals to return home independently. Pt states he has many friends and family who can assist if needed. Pt's of 21 years on May 25. SW spoke with pt regarding of spouse and support provided. SW discussed grief counseling with pt who states his was with [facility] and he is aware that he will be getting information from them regarding grief. pt denies further resources at this time. Pt sites many family members as a good source of comfort to him. SW will remain available for support as needed. JUANITO Moss
[2024-06-15 14:02] VITALS: BMI 45.9
[2024-06-15] MEDS: Naproxen 500 MG Tablet PO (17:09)
[2024-06-15 22:30] VITALS: PULSE 90; O2SAT 96
--- NOTE | 2024-06-16 01:02 | NURSING ---
All care provided in room due to contact isolation precautions.
[2024-06-16] MEDS: Acyclovir 800 MG Tablet PO ×5 (05:47→23:09)
[2024-06-16] MEDS: Acetaminophen 500 MG Tablet 1000 MG PO ×3 (05:47→23:06)
[2024-06-16] MEDS: cycloBENZAPRine HCl 5 MG TABLET PO ×3 (05:47→23:08)
[2024-06-16] MEDS: Enoxaparin 40 MG/0.4 ML Syringe SC (05:48)
[2024-06-16] MEDS: oxyCODONE 5 MG Tablet PO ×5 (05:55→23:06)
[2024-06-16] MEDS: Naproxen 500 MG Tablet PO (07:43)
[2024-06-16 09:13] VITALS: BP 138/101; PULSE 103; RESP 16; TEMP 36.2; O2SAT 95
[2024-06-16] MEDS: Senna/Docusate Sodium 1 Tablet 2 TABLET PO ×2 (09:16→23:08)
[2024-06-16] MEDS: Losartan Potassium 25 MG Tablet PO (09:18)
[2024-06-16] MEDS: Ascorbic Acid 500 MG Tablet PO (09:18)
[2024-06-16] MEDS: Venlafaxine XR 75 MG Capsule PO (09:18)
--- NOTE | 2024-06-16 15:26 | PHA.CONS_ITS ---
Documented by User: Gabbi Carnes 06/16/24 15:47 TCU RX Drug Regimen Review Subjective/Objective Subjective/Objective Subjective: TCU Admission. 48 YOM presented to the ER after falling off of a ladder. Admitted to the hospital with back pain, 06/08/2024 he underwent L2-L3 epidural steroid injection by Dr. Munson. Admitted to TCU with debility for strengthening and rehabilitation. Objective: Allergies Penicillins (PCN) Allergy (Verified 10/15/21 11:24) Other Current Medications Generic Name Dose Route Start Last Admin Trade Name Freq PRN Reason Stop Dose Admin Acetaminophen 1,000 mg 06/14/24 14:00 06/16/24 14:21 Acetaminophen 500 Mg Tablet PO 06/21/24 06:01 1,000 mg Q8 MARYAN Administration Acetaminophen 1,000 mg 06/21/24 14:00 Acetaminophen 500 Mg Tablet PO Q8H PRN PAIN 1-10 Acyclovir 800 mg 06/14/24 22:00 06/16/24 14:21 Acyclovir 800 Mg Tablet PO 06/21/24 22:01 800 mg 5X/DAY MARYAN Administration Ascorbic Acid 500 mg 06/15/24 10:00 06/16/24 09:18 Ascorbic Acid 500 Mg Tablet PO 500 mg DAILY MARYAN Administration Bisacodyl 10 mg 06/14/24 14:02 Bisacodyl 10 Mg Suppository RC DAILY PRN PRN Constipation Cyclobenzaprine HCl 5 mg 06/14/24 14:00 06/16/24 14:21 Cyclobenzaprine Hcl 5 Mg Tablet PO 5 mg TID MARYAN Administration Enoxaparin Sodium 40 mg 06/15/24 06:00 06/16/24 05:48 Enoxaparin 40 Mg/0.4 Ml Syringe SC 40 mg DAILY@0600 MARYAN Administration Losartan Potassium 25 mg 06/15/24 12:30 06/16/24 09:18 Losartan Potassium 25 Mg Tablet PO 25 mg DAILY MARYAN Administration Protocol Magnesium Citrate 300 ml 06/14/24 14:02 Magnesium Citrate 300 Ml PO X1 PRN Constipation Magnesium Hydroxide 30 ml 06/14/24 14:02 Magnesium Hydroxide 30 Ml Udc PO DAILY PRN PRN Constipation Naproxen 500 mg 06/14/24 13:59 06/16/24 07:43 Naproxen 500 Mg Tablet PO 500 mg BID PRN Administration pain 1-10 Oxycodone HCl 5 - 10 mg 06/14/24 13:59 06/16/24 14:23 Oxycodone 5 Mg Tablet PO 10 mg Q4H PRN PRN Administration Pain Score 4-10 Senna/Docusate Sodium 2 tablet 06/14/24 22:00 06/16/24 09:16 Senna/Docusate Sodium 1 Tablet PO 2 tablet BID MARYAN Administration Tuberculin PPD 0.1 ml 06/22/24 10:00 Tuberculin,Purif.Prot.Deriv. 50 Tu/Ml Vial ID 06/22/24 10:01 X1 ONE Venlafaxine HCl 75 mg 06/15/24 10:00 06/16/24 09:18 Venlafaxine Xr 75 Mg Capsule PO 75 mg DAILY MARYAN Administration Problem List Herpes zoster (Acute) Foraminal stenosis of lumbosacral region (Acute) Lumbar radiculopathy, acute (Acute) Debility (Acute) Fall (Acute) Vital Signs Temp Pulse Resp BP Pulse Ox O2 Del Method 97.2 F L 103 H 16 138/101 H 95 Room Air 06/16/24 09:13 06/16/24 09:13 06/16/24 09:13 06/16/24 09:13 06/16/24 09:13 06/16/24 09:13 Oxygen Delivery Method Room Air Weight: 158.032 kg Body Mass Index (BMI) 45.9 Sodium 136 mmol/L (136-145) 06/15/24 05:19 Potassium 4.2 mmol/L (3.5-5.1) 06/15/24 05:19 Chloride 105 mmol/L (98-107) 06/15/24 05:19 Carbon Dioxide 27.0 mmol/L (21.0-32.0) 06/15/24 05:19 Anion Gap 5 (5-15) 06/15/24 05:19 BUN 14 mg/dL (7-18) 06/15/24 05:19 Creatinine 0.88 mg/dL (0.70-1.30) 06/15/24 05:19 Est GFR (MDRD) Af Amer 119 mL/min (>60) 06/15/24 05:19 Est GFR (MDRD) Non-Af 98 mL/min (>60) 06/15/24 05:19 BUN/Creatinine Ratio 15.9 RATIO (10-20) 06/15/24 05:19 Glucose 99 mg/dL (74-106) 06/15/24 05:19 Assessment/Plan: 1. Pain: acetaminophen 1000mg PO Q8H thru 06/21/24 and then Q8H PRN pain 1-10, cyclobenzaprine 5mg PO TID, naproxen 500mg PO BID PRN pain 1-10 and oxycodone 5- 10mg PO Q4H PRN pain 4-10. Resident has had 2 doses of naproxen and 9 doses of oxycodone for pain scores of 7-9 in the back/hip. Please continue to monitor for PRN usage, drowsiness, anticholinergic side effects, increased pain, constipation and respiratory depression. 2. Bowel: senna/docusate 2T PO BID, bisacodyl 10mg RC daily PRN constipation, magnesium citrate 300mL PO x1 PRN constipation and MOM 30mL PO daily PRN constipation. No PRN doses have been given. Please continue to monitor for constipation and PRN usage. Last documented bowel movement was 06/16/24. 3. DVT prophylaxis: enoxaparin 40mg SC daily. Please continue to monitor for S/S of bleeding, renal function, hemoglobin (last 15.3g/dL) and platelets (last 377,000). 4. Herpes Zoster: acyclovir 800mg PO 5x/day thru 06/21/24. Please continue to monitor for worsening of shingles, renal function and GI upset. 5. Hypertension (based on BP readings ranging from 130-160 systolic, 75-109 diastolic): losartan 25mg PO daily. Please continue to monitor BP (last 138/101), renal function, potassium (last 4.2mmol/L). 6. Overall health: ascorbic acid 500mg PO daily. Please continue to monitor. Assessment/Plan for indications treated with psychotropic medications: 1. Depression/chronic pain: venlafaxine XR 75mg PO daily. GDR not appropriate as this medication was just started. Please continue to monitor for improvement in pain, suicidal ideation (BEERs), sodium (last 136mmol/L), drowsiness, nervousness, agitation. Medical chart and medication regimen reviewed. The following medication irregularities or issues were identified: None Date Date of Note: 01/01/25 Documented by User: Dr. Torsten Moody MD 06/17/24 07:09 TCU RX Drug Regimen Review Provider Comments Provider responsibility Provider Comments to Recommendations by Pharmacy Agree
--- NOTE | 2024-06-16 17:09 | NURSING ---
pt remains in contact isolation, all treatments/therapy in room
[2024-06-16 17:20] VITALS: PULSE 88; RESP 16
[2024-06-17] MEDS: Enoxaparin 40 MG/0.4 ML Syringe SC (05:39)
[2024-06-17] MEDS: Acetaminophen 500 MG Tablet 1000 MG PO ×3 (05:39→23:01)
[2024-06-17] MEDS: Acyclovir 800 MG Tablet PO ×5 (05:39→23:02)
[2024-06-17] MEDS: oxyCODONE 5 MG Tablet PO ×5 (05:40→23:00)
[2024-06-17] MEDS: cycloBENZAPRine HCl 5 MG TABLET PO ×3 (05:40→23:00)
[2024-06-17] MEDS: Losartan Potassium 25 MG Tablet PO (09:22)
[2024-06-17] MEDS: Senna/Docusate Sodium 1 Tablet 2 TABLET PO ×2 (09:22→23:00)
[2024-06-17] MEDS: Ascorbic Acid 500 MG Tablet PO (09:22)
[2024-06-17] MEDS: Venlafaxine XR 75 MG Capsule PO (09:22)
[2024-06-17 09:39] VITALS: BP 136/88; PULSE 96; RESP 16; TEMP 36.7; O2SAT 95
--- NOTE | 2024-06-17 13:13 | CASEMGMT ---
Social Work SW completed BIMS () and PHQ-2 () for MDS assessment. SW educated pt to MMO Commercial insurance and no advanced notice will be given for DC date; NRD 06/21. SW encouraged pt to notify therapists or this worker of any concerns with returning home to focus on sooner. Pt agreed and voiced no concerns to this worker. Will continue to follow for DC planning. BOBY EasleyW
[2024-06-17 23:00] VITALS: PULSE 90
[2024-06-18] MEDS: Enoxaparin 40 MG/0.4 ML Syringe SC (05:52)
[2024-06-18] MEDS: Acyclovir 800 MG Tablet PO ×5 (05:52→21:05)
[2024-06-18] MEDS: cycloBENZAPRine HCl 5 MG TABLET PO ×3 (05:52→21:10)
[2024-06-18] MEDS: oxyCODONE 5 MG Tablet PO ×4 (05:53→18:29)
[2024-06-18] MEDS: Acetaminophen 500 MG Tablet 1000 MG PO ×3 (05:53→21:05)
[2024-06-18 06:07] VITALS: PULSE 95; O2SAT 95
[2024-06-18] MEDS: Senna/Docusate Sodium 1 Tablet 2 TABLET PO ×2 (10:28→21:10)
[2024-06-18] MEDS: Ascorbic Acid 500 MG Tablet PO (10:29)
[2024-06-18] MEDS: Losartan Potassium 25 MG Tablet PO (10:30)
[2024-06-18] MEDS: Venlafaxine XR 75 MG Capsule PO (10:30)
[2024-06-18 14:23] VITALS: BP 125/86; PULSE 100; RESP 16; TEMP 36.6; O2SAT 96
[2024-06-18] MEDS: Magnesium Hydroxide 30 ML UDC PO (21:03)
[2024-06-18] MEDS: Naproxen 500 MG Tablet PO (21:04)
[2024-06-19] MEDS: Enoxaparin 40 MG/0.4 ML Syringe SC (05:50)
[2024-06-19] MEDS: Acyclovir 800 MG Tablet PO ×5 (05:51→22:11)
[2024-06-19] MEDS: Acetaminophen 500 MG Tablet 1000 MG PO ×3 (05:51→22:09)
[2024-06-19] MEDS: cycloBENZAPRine HCl 5 MG TABLET PO ×3 (05:51→22:11)
[2024-06-19] MEDS: oxyCODONE 5 MG Tablet PO ×4 (05:55→22:10)
[2024-06-19 10:22] VITALS: BP 135/94; PULSE 90; RESP 17; TEMP 35.7; O2SAT 96
[2024-06-19] MEDS: Senna/Docusate Sodium 1 Tablet 2 TABLET PO ×2 (10:25→22:10)
[2024-06-19] MEDS: Venlafaxine XR 75 MG Capsule PO (10:25)
[2024-06-19] MEDS: Losartan Potassium 25 MG Tablet PO (10:25)
[2024-06-19] MEDS: Ascorbic Acid 500 MG Tablet PO (10:26)
[2024-06-19] MEDS: Oseltamivir Phosphate 75 MG Capsule PO (22:52)
[2024-06-20] MEDS: Enoxaparin 40 MG/0.4 ML Syringe SC (05:44)
[2024-06-20] MEDS: Acyclovir 800 MG Tablet PO ×5 (05:45→21:48)
[2024-06-20] MEDS: Acetaminophen 500 MG Tablet 1000 MG PO ×3 (05:45→21:48)
[2024-06-20] MEDS: cycloBENZAPRine HCl 5 MG TABLET PO ×3 (05:46→21:49)
[2024-06-20 10:17] VITALS: BP 130/92; PULSE 105; RESP 17; TEMP 36.3; O2SAT 96
[2024-06-20] MEDS: Venlafaxine XR 75 MG Capsule PO (10:19)
[2024-06-20] MEDS: Senna/Docusate Sodium 1 Tablet 2 TABLET PO ×2 (10:19→21:49)
[2024-06-20] MEDS: Losartan Potassium 25 MG Tablet PO (10:19)
[2024-06-20] MEDS: Ascorbic Acid 500 MG Tablet PO (10:20)
[2024-06-20] MEDS: oxyCODONE 5 MG Tablet PO ×2 (10:25→21:48)
--- NOTE | 2024-06-20 16:53 | NURSING ---
Call placed to Dr. Moody, patient requesting Miralax BID. VORB for same.
[2024-06-20] MEDS: Polyethylene Glycol 3350 17 GM PACKET PO (21:49)
[2024-06-20] MEDS: Oseltamivir Phosphate 75 MG Capsule PO (21:49)
[2024-06-21] MEDS: Enoxaparin 40 MG/0.4 ML Syringe SC (05:44)
[2024-06-21] MEDS: cycloBENZAPRine HCl 5 MG TABLET PO ×3 (05:44→21:51)
[2024-06-21] MEDS: Acyclovir 800 MG Tablet PO ×5 (05:44→21:51)
[2024-06-21] MEDS: Acetaminophen 500 MG Tablet 1000 MG PO ×2 (05:44→21:55)
--- NOTE | 2024-06-21 08:25 | NURSING ---
Siding Applicator Note; MDS for 06/21/2024 Complete
[2024-06-21 09:19] VITALS: BP 153/98; PULSE 94; TEMP 36.4; O2SAT 93
[2024-06-21] MEDS: Ascorbic Acid 500 MG Tablet PO (09:25)
[2024-06-21] MEDS: Losartan Potassium 25 MG Tablet PO (09:25)
[2024-06-21] MEDS: Senna/Docusate Sodium 1 Tablet 2 TABLET PO ×2 (09:25→21:50)
[2024-06-21] MEDS: Venlafaxine XR 75 MG Capsule PO (09:25)
[2024-06-21] MEDS: oxyCODONE 5 MG Tablet PO ×3 (09:25→21:51)
[2024-06-21] MEDS: Polyethylene Glycol 3350 17 GM PACKET PO (09:26)
[2024-06-21 10:00] VITALS: PULSE 98; RESP 18
[2024-06-21 14:38] VITALS: BP 141/95; PULSE 98; RESP 18; TEMP 36.4; O2SAT 98
[2024-06-21] MEDS: Naproxen 500 MG Tablet PO (18:00)
[2024-06-21] MEDS: Oseltamivir Phosphate 75 MG Capsule PO (21:52)
[2024-06-22] MEDS: oxyCODONE 5 MG Tablet PO ×2 (05:57→13:39)
[2024-06-22] MEDS: cycloBENZAPRine HCl 5 MG TABLET PO ×2 (05:57→13:39)
[2024-06-22] MEDS: Enoxaparin 40 MG/0.4 ML Syringe SC (05:58)
[2024-06-22 06:08] LABS: Absolute Lymphocyte Count 2.55 X10^3/uL (0.83-4.51); Absolute Neutrophil Count 4.3 X10^3/uL (2.0-7.7); Basophil# 0.05 X10^3/uL; Basophil% 0.6 % (0-1); Eosinophil# 0.11 X10^3/uL; Eosinophils% 1.4 % (0-5); Hematocrit 43.8 % (40-54); Hemoglobin 14.7 g/dL (13.0-16.5); Lymphocyte # 2.55 X10^3/ul (0.83-4.51); Lymphocyte % 32.2 % (19-41); Mean Corp Hgb Conc 33.6 g/dL (32-36); Mean Corpuscular Hgb 29.8 pg (27.0-32.0); Mean Corpuscular Volume 88.8 fL (80-94); Mean Platelet Vol. 8.9 fl (6.2-12.0); Monocyte# 0.89 X10^3/uL; Monocyte% 11.2 % (0-10); NRBC Flagged by Analyzer 0 % (0-5); Neutrophil # 4.31 X10^3/uL (2.7-7.7); Neutrophil % 54.3 % (47-70); Platelet Count 348 K/mm3 (150-450); RBC Distribution Width CV 12.3 % (11.6-14.6); RBC Distribution Width SD 40.3 fl (35.1-43.9); Red Blood Count 4.93 M/mm3 (4.6-6.2); White Blood Count 7.9 K/mm3 (4.4-11.0)
[2024-06-22 06:17] LABS: Anion Gap 1 (5-15); BUN 13 mg/dL (7-18); BUN/Creat Ratio 14.8 RATIO (10-20); Calcium,Total 9.1 mg/dL (8.5-10.1); Chloride 105 mmol/L (98-107); Creatinine, Serum 0.88 mg/dL (0.70-1.30); EST Glomerular Filtration Rate 98 mL/min (>60); Est Glom Filt Rate - Afr Amer 118 mL/min (>60); Glucose 90 mg/dL (74-106); Potassium 4.5 mmol/L (3.5-5.1); Sodium Level 136 mmol/L (136-145)
[2024-06-22 08:47] VITALS: BP 123/94; PULSE 92; RESP 16; TEMP 36.1; O2SAT 96
[2024-06-22] MEDS: Senna/Docusate Sodium 1 Tablet 2 TABLET PO (08:49)
[2024-06-22] MEDS: Losartan Potassium 25 MG Tablet PO (08:49)
[2024-06-22] MEDS: Ascorbic Acid 500 MG Tablet PO (08:49)
[2024-06-22] MEDS: Venlafaxine XR 75 MG Capsule PO (08:49)
[2024-06-22] MEDS: Tuberculin,Purif.prot.deriv. 50 TU/ML Vial 0.1 ML ID (08:50)
[2024-06-22] MEDS: Polyethylene Glycol 3350 17 GM PACKET PO (08:50)
--- NOTE | 2024-06-22 09:28 | PCM.DC.SUM ---
Providers Date of Admission: 06/14/24 Primary Care Physician: Dr. Delaney Nunez DO Reason For Visit: BACK PAIN AFTER FALL Diagnosis Discharge Diagnosis (1) Debility: Status: Acute Code(s): R53.81 - Other malaise (2) Fall: Status: Acute Code(s): W19.XXXA - Unspecified fall, initial encounter (3) Lumbar compression fracture: Status: Inactive Code(s): S32.000A - Wedge compression fracture of unspecified lumbar vertebra, initial encounter for closed fracture Qualifiers: Encounter type: initial encounter Lumbar vertebra fracture level: L3 Qualified Code(s): S32.030A - Wedge compression fracture of third lumbar vertebra, initial encounter for closed fracture (4) Lumbar radiculopathy, acute: Status: Acute Code(s): M54.16 - Radiculopathy, lumbar region (5) Foraminal stenosis of lumbosacral region: Status: Acute Code(s): M48.07 - Spinal stenosis, lumbosacral region (6) Herpes zoster: Status: Acute Code(s): B02.9 - Zoster without complications Qualifiers: Herpes zoster complications: without complications Qualified Code(s): B02.9 - Zoster without complications Medications at Discharge Home Medications ascorbic acid (vitamin C) 500 mg chewable tablet (Acerola C) 500 mg PO DAILY supplement 06/03/24 acetaminophen 500 mg tablet 1,000 mg (2 x 500 mg) PO Q8H PRN PAIN 1-10 #0 tabs 06/22/24 cyclobenzaprine 5 mg tablet 5 mg PO TID 30 days #90 tabs 06/22/24 losartan 25 mg tablet 25 mg PO DAILY 30 days #30 tabs 06/22/24 naproxen 500 mg tablet 500 mg PO BID PRN pain 1-10 30 days #60 tabs 06/22/24 oxycodone 5 mg tablet 5 - 10 mg (1 - 2 x 5 mg) PO Q4H PRN PRN Pain Score 4-10 7 days #84 tabs 06/22/24 sennosides 8.6 mg-docusate sodium 50 mg tablet (Stimulant Laxative Plus) 2 tab PO BID 30 days #120 tabs 06/22/24 venlafaxine 75 mg capsule,extended release 24 hr 75 mg PO DAILY 30 days #30 caps 06/22/24 Hospital Course Operations None Procedures - (Lumbar epidural steroid injection.) Summary of Care Provided Minutes Spent on Discharge: 35 Hospital Course: 48 year old male with below past medical history hospitalized for fall, intractable low back pain 2/2 lumbar compression fracture, underwent lumbar epidural steroid injection 06/08/[address] Munson, admitted to TCU with debility, here for rehabilitation, strengthening, prior to discharge home alone. Discharge home alone 06/22/2024, [facility] PT/OT, no DME. Physical Exam Const alert General Appearance: cooperative HEENT normocephalic Eyes PERRL and EOMs intact bilaterally Neck supple, no JVD and no carotid bruits Resp normal respiratory effort, normal air movement and clear to auscultation bilaterally Cardio regular rate and regular rhythm GI normal to inspection, nondistended, normoactive bowel sounds, non-tender and non-distended Extremity normal capillary refill General Extremity: Negative for edema Skin no rashes or lesions noted General Skin Exam: no breakdown Psych affect normal Appearance: appropriate Weight / BMI Weight Weight: 158.032 kg Body Mass Index (BMI) 45.9 ABG / Lab / Microbiology Data 06/22/24 05:21 06/22/24 05:21 Laboratory: Laboratory Results - last 24 hr 06/22/24 05:21: WBC 7.9, RBC 4.93, Hgb 14.7, Hct 43.8, MCV 88.8, MCH 29.8, MCHC 33.6, RDW Std Deviation 40.3, RDW Coeff of Manuelito 12.3, Plt Count 348, MPV 8.9, Immature Gran % (Auto) 0.300, Neut % (Auto) 54.3, Lymph % (Auto) 32.2, [place] % (Auto) 11.2 H, Eos % (Auto) 1.4, Baso % (Auto) 0.6, Absolute Neuts (auto) 4.3, Absolute Lymphs (auto) 2.55, Nucleated RBC % 0, Sodium 136, Potassium 4.5, Chloride 105, Carbon Dioxide 31.0, Anion Gap 1 L, BUN 13, Creatinine 0.88, Estim Creat Clear Calc 161.40, Est GFR (MDRD) Af Amer 118, Est GFR (MDRD) Non-Af 98, BUN/Creatinine Ratio 14.8, Glucose 90, Calcium 9.1 D/C Instructions Discharge Diet: No restrictions Discharge Activity: Return to Normal Activity, May Shower and Use Walker Weight Bearing Status: Weight bearing as tolerated Call your doctor if you observe: Fever of 101 or Higher, Inability to urinate, Inability to have a bowel movement, Shortness of breath, Dizziness, Fainting spells, Swelling in the ankles, Chest pain and Uncontrolled pain DC O2, CPAP, BIPAP Needs Home O2 Discharge instructions: No Additional Instructions: Discharge home alone 06/22/2024, [facility] PT/OT, no DME. Meaningful Use Info Meaningful Use Meaningful Use Diagnoses (Choose all that apply): None applicable Ischemic Stroke Statin Dosing Therapy Reference: STATIN DOSE THERAPY REFERENCE: * Patients > 75 years receive moderate or high dose statin therapy. * Patients 75 years or YOUNGER should receive HIGH intensity statin dose unless contraindicated. You will be required to document reason for non-treatment if statin daily dose does not meet guidelines. HIGH DOSE STATIN THERAPY DAILY Atorvastatin > than or = to 40 mg Rosuvastatin > than or = to 20 mg Amlodipine + Atorvastatin > than or = to 2.5/40 mg Ezetimibe + Simvastatin 10/80 mg Simvastatin 80mg Discharge Plan Admission Admit Date/Time: 06/14/24 13:51 Primary Reason for Your Visit: Debility. Attending Provider: Nikki Easton Primary Care Provider: Delaney Nunez Instructions Additional Instructions / Restrictions: Discharge home alone 06/22/2024, [facility] PT/OT, no DME. Discharge Orders/Prescriptions Prescriptions: New venlafaxine 75 mg Capsule,Extended Release 24hr 75 mg PO DAILY 30 Days Qty: 30 0RF sennosides-docusate sodium [Stimulant Laxative Plus] 8.6-50 mg Tablet 2 tab PO BID 30 Days Qty: 120 0RF acetaminophen 500 mg Tablet 1,000 mg PO Q8H PRN (Reason: PAIN 1-10) Qty: 0 0RF losartan 25 mg Tablet 25 mg PO DAILY 30 Days Qty: 30 0RF naproxen 500 mg Tablet 500 mg PO BID PRN (Reason: pain 1-10) 30 Days Qty: 60 0RF oxycodone 5 mg Tablet 5 - 10 mg PO Q4H PRN PRN (Reason: Pain Score 4-10) 7 Days Qty: 84 0RF cyclobenzaprine 5 mg Tablet 5 mg PO TID 30 Days Qty: 90 0RF Continued ascorbic acid (vitamin C) [Acerola C] 500 mg tablet,chewable 500 mg PO DAILY Discontinued naproxen [Naprosyn] 500 mg tablet 500 mg PO BID PRN (Reason: pain) Qty: 20 0RF acetaminophen 500 mg Tablet 1,000 mg PO Q8 Qty: 0 0RF Rx Instructions: 1 g every 8 hourly for 7 days and then as needed. bisacodyl 10 mg Suppository 10 mg [place] DAILY PRN (Reason: constipation) Qty: 0 0RF cyclobenzaprine 5 mg Tablet 5 mg PO TID Qty: 0 0RF sennosides-docusate sodium [Stimulant Laxative Plus] 8.6-50 mg Tablet 2 tab PO BID Qty: 0 0RF oxycodone 5 mg Tablet 5 - 10 mg PO Q4H PRN PRN (Reason: Pain Score 4-10) Qty: 0 0RF Referrals / Follow Up: Delaney Nunez DO [Primary Care Provider] - Disposition Disposition (needs filled in before D/C Order can be placed): Home Health Service
--- NOTE | 2024-06-22 09:45 | CASEMGMT ---
Social Work Insurance issued LCD 06/21, DC 06/22. SW spoke with pt and pt agreeable to DC with no concerns. SW offered skilled HHC or outpatient therapy. Pt prefers skilled HHC. SW offered to provide list of HHC providers including quality and resource data via [employer] Guide, but pt denied and [facility] Pt denied any DME needs. Pt to coordinate transport home. SW offered assistance if needed. Completed BIMS () and PHQ-2 () for MDS assessment. IDT updated. Phoned referral to [facility] for PT/OT Plan: DC home 06/22, [facility] PT/OT Amee Zavala MSW SCARFER OPERATOR
[2024-06-22] MEDS: Naproxen 500 MG Tablet PO (10:13)
--- NOTE | 2024-06-22 12:38 | MDS.RN ---
Information for the MDS was obtained from review of the clinical record, interview of resident, staff, and direct observation of resident?s care.
== END 2024-06-22 15:40 | disposition home health service (06) | DRG 560 ==
PROVIDERS: Admitting Provider Internal Medicine; PCP Internal Medicine; Referring Provider Internal Medicine; Visit Provider Internal Medicine
DX: S32.030D Wedge compression fracture of third lumbar vertebra, subsequent encounter for fracture with routine healing (principal); Z68.42 Body mass index [BMI] 45.0-49.9, adult; B02.9 Zoster without complications; E66.01 Morbid (severe) obesity due to excess calories; M48.07 Spinal stenosis, lumbosacral region; M54.16 Radiculopathy, lumbar region; G47.33 Obstructive sleep apnea (adult) (pediatric); Z63.4 Disappearance and death of family member; W11.XXXD Fall on and from ladder, subsequent encounter; Z79.899 Other long term (current) drug therapy
CPT/HCPCS: 36415; 80048; 85025; 97110; 97116; 97162; 97166; 97530; 97535

== ENCOUNTER → 2024-08-04 | Outpatient (CLI) | payer OTHER, SELFPAY ==
[2024-08-04 10:36] LABS: Absolute Lymphocyte Count 1.88 X10^3/uL (0.83-4.51); Absolute Neutrophil Count 4.9 X10^3/uL (2.0-7.7); Basophil# 0.06 X10^3/uL; Basophil% 0.8 % (0-1); Eosinophil# 0.04 X10^3/uL; Eosinophils% 0.5 % (0-5); Hemoglobin 14.4 g/dL (13.0-16.5); Lymphocyte # 1.88 X10^3/ul (0.83-4.51); Lymphocyte % 24.9 % (19-41); Mean Corp Hgb Conc 33.5 g/dL (32-36); Mean Corpuscular Hgb 29.2 pg (27.0-32.0); Mean Corpuscular Volume 87.2 fL (80-94); Mean Platelet Vol. 8.8 fl (6.2-12.0); Monocyte# 0.65 X10^3/uL; Monocyte% 8.6 % (0-10); NRBC Flagged by Analyzer 0 % (0-5); Neutrophil # 4.89 X10^3/uL (2.7-7.7); Neutrophil % 64.8 % (47-70); Platelet Count 336 K/mm3 (150-450); RBC Distribution Width CV 12.7 % (11.6-14.6); RBC Distribution Width SD 40.7 fl (35.1-43.9); Red Blood Count 4.93 M/mm3 (4.6-6.2); White Blood Count 7.6 K/mm3 (4.4-11.0)
[2024-08-04 11:11] LABS: ALB/GLOB Ratio 0.9 RATIO (0.9-2.4); AST(SGOT) 19 U/L (15-37); Alanine Aminotransfer ALT/SGPT 35 U/L (16-61); Albumin, Serum 3.5 g/dL (3.2-5.0); Alkaline Phosphatase 68 U/L (45-117); Anion Gap 6 (5-15); BUN 9 mg/dL (7-18); BUN/Creat Ratio 11.3 RATIO (10-20); Calcium,Total 9.2 mg/dL (8.5-10.1); Chloride 107 mmol/L (98-107); Cholesterol 184 mg/dL (200); EST Glomerular Filtration Rate 110 mL/min (>60); Est Glom Filt Rate - Afr Amer 133 mL/min (>60); Globulin 4.1 g/dL (2.2-4.2); Glucose 108 mg/dL (74-106); High Density Lipoprotein 36 mg/dL; PSA,Total - Annual Screen 1.99 ng/mL (0.00-4.00); Potassium 4.2 mmol/L (3.5-5.1); Protein, Total 7.6 g/dL (6.4-8.2); Sodium Level 138 mmol/L (136-145); Triglycerides 124 mg/dL; Very Low Density Lipoprotein 25 mg/dL (5-40)
== END | disposition home or self-care (01) ==
LOC: LAB 10:12
PROVIDERS: PCP Family Medicine; Referring Provider Family Medicine; Visit Provider Family Medicine
DX: Z00.00 Encounter for general adult medical examination without abnormal findings (principal)
CPT/HCPCS: 36415; 80053; 80061; 84153; 85025; G0103

== ENCOUNTER → 2024-08-23 | Outpatient (CLI) | payer OTHER, SELFPAY ==
--- NOTE | 2024-08-23 08:00 | MRI_ITS ---
PROCEDURE: SPINE CERVICAL (ROUTINE) REASON FOR EXAM: CERVICAL RADICULOPATHY TECHNIQUE: Cervical spine MRI without intravenous gadolinium-based contrast. CONTRAST: None COMPARISON: 06/03/2024. FINDINGS: Cervical vertebral body heights are preserved. No suspicious marrow signal abnormality. Degenerative type marrow signal changes along the anterior inferior corner of C3. Straightening and trace reversal of the normal cervical lordosis, potentially degenerative, positional, or related to pain/muscular spasm, similar to prior. Similar trace likely degenerative retrolisthesis at C5-C6. Unremarkable cord signal. C2-3: Posterior central disc protrusion contacting the ventral cord without contour abnormality/mass-effect. Mild focal spinal canal stenosis. No significant foraminal stenosis. C3-4: Diffuse disc bulging slightly asymmetric to the right, nearly contacting the ventral cord. Moderate spinal canal stenosis with incomplete effacement of CSF. Facet/uncovertebral arthropathy. Mild bilateral foraminal stenoses. C4-5: Diffuse disc bulging, contacting or nearly contacting the ventral cord. Right lateral disc protrusion. Facet/uncovertebral arthropathy, greater on the right. Severe right foraminal stenosis. Mild left foraminal stenosis. Moderate focal spinal canal stenosis with incomplete effacement of CSF. C5-6: Diffuse disc bulging with superimposed left subarticular/foraminal disc protrusion. Left lateral disc/osteophyte complex. Facet/uncovertebral arthropathy. Bifblxvz-op-mykygm brbic-ogqxwbt-vxuk-left foraminal stenoses. Moderate to severe spinal canal stenosis with near-complete effacement of CSF. C6-7: Diffuse disc bulging. Mild/moderate focal spinal canal stenosis. Facet/uncovertebral arthropathy. Mild left foraminal stenosis. C7-T1: No high-grade spinal canal or foraminal stenosis. Other: Complete or near-complete opacification of the right maxillary sinus on the mortgage professional, not well evaluated. L3 burst fracture is age indeterminate, also not well evaluated. Thoracolumbar spondylosis. Partially imaged suspected 4.0 cm righted adrenal nodule, not well evaluated. MRI/Spine Cervical (Routine) IMPRESSION: 1. L3 burst fracture on the mortgage professional is age indeterminate, not well evaluated. Cor relate with history and point tenderness and consider dedicated imaging as indicated. 2. Multilevel spondylosis as detailed. Variable spinal canal stenoses up to mo derate/severe at C5-C6. Variable foraminal stenoses up to severe on the right at C4-C5. 3. Suspected partially imaged indeterminate 4.0 cm right adrenal nodule, not we ll evaluated. Recommend dedicated imaging of the abdomen for confirmation, ideally adrenal protocol CT. Comparison with any alex ilable outside imaging may also be helpful. 4. Right maxillary paranasal sinus is not well evaluated with complete or near- complete opacification of the sinus. Consider dedicated imaging as indicated. 5. Additional description as above. Reading Location: [id number]
== END | disposition home or self-care (01) ==
PROVIDERS: PCP Family Medicine; Referring Provider Orthopaedic Surgery Orthopaedic Surgery of the Spine; Visit Provider Orthopaedic Surgery Orthopaedic Surgery of the Spine
DX: S32.030A Wedge compression fracture of third lumbar vertebra, initial encounter for closed fracture (principal); M54.50 Low back pain, unspecified; M54.12 Radiculopathy, cervical region
CPT/HCPCS: 72141

== ENCOUNTER → 2024-09-17 | Outpatient (CLI) | payer OTHER, SELFPAY ==
--- NOTE | 2024-09-17 08:45 | CT_ITS ---
PROCEDURE: ABDOMEN W/WO IV CONTRAST 09/17/2024 REASON FOR EXAM: ADRENAL PROTOCOL TECHNIQUE: Abdomen CT with intravenous contrast. Coronal and Sagittal reconstruction series were provided. One or more dose reduction techniques were used (e.g., Automated exposure control, adjustment of the mA and/or kV according to patient size, use of iterative reconstruction technique. PATIENT PREPARATION: Per protocol ORAL CONTRAST TYPE: None. AMOUNT: mL CONTRAST: Isovue-300 VOLUME: 70 mL IV RADIATION DOSE SUMMARY: CTDlvol: 29.33 mGy DLP: 3580.11 mGycm FINDINGS: Lung bases: Clear The liver, gallbladder, spleen, pancreas and kidneys are unremarkable. The GI tract is normal caliber and appearance. Lymph nodes: None. Vasculature: Plaque load is minimal Peritoneum / Retroperitoneum: No free air or free fluid generally. No free fluid in Morison's pouch. Bones: No aggressive bone lesions. Superior endplate compression deformity of upper lumbar spine vertebral body CT/Abdomen W/WO IV Contrast IMPRESSION: No adrenal nodules identified. In the absence of a history of cancer or symptoms of malignancy, the likelihood of an adrenal nodule less than 4 cm is 1 in [id number]. Reading Location: [facility]
== END | disposition home or self-care (01) ==
LOC: CT 08:43
PROVIDERS: PCP Family Medicine; Referring Provider Family Medicine; Visit Provider Family Medicine
DX: E27.9 Disorder of adrenal gland, unspecified (principal)
CPT/HCPCS: 74170; Q9967

== ENCOUNTER 2024-10-01 07:00 | Outpatient (RCR) | payer OTHER, SELFPAY ==
--- NOTE | 2024-09-01 16:13 | HP.PTEVAL ---
Patient's Visit Information Visit Information Visit Information: CHING ZACARIAS is a 48 year old M referred to Physical Therapy by Dr. Ronak Horn DO with a diagnosis of WEDGE COMPRESSION FRACTURE OF THIRD VERTEBRAE , LOW BACK PAIN ,CERVICAL RAD. Date of Evaluation: 09/01/24 Physical Therapist: Aldair Rodrigues, PT, Cert MDT, OCS Visit Plan Frequency: 2x /Week Duration: 4 Weeks Plan: 25# lifting restriction compression wedge FX L3 PT INTERVENTIONS DLS ,POSTURAL EX'S ,LE FLEXABILITY ,BLE STRENGTHENING ,AEROBIC EX'S AND FUNCTIONAL STRENGTHENING Subjective Subjective: This 48 y/o male presents to physical therapy with wedge compression lumbar fracture and LBP. Patient fell off ladder Jun 03 landed hip caused immediate . ER at [facility] had MRI There is an acute superior endplate compression fracture of L3 ,Disc bulge and superimposed central disc herniation with moderate facet arthrosis and ligamentum flavum thickening. L4-5 Moderate to severe stenosis of the thecal sac and overall mild spinal canal , L5-S1 Severe bilateral facet arthrosis and disc bulge with superimposed right foraminal to extraforaminal disc herniation..Patient had epidural injection in hospital. Patient went to TCU for PT/OT and used FWW d/c to home 06/22/24 then home C PT for 2 weeks and weaned from FWW to crutches cane to no device.Patient then had MRI cervical showed Multilevel spondylosis as detailed. Variable spinal canal stenosis up to moderate/severe at C5-C6. Variable foraminal stenosis up to severe on the right at C4-C5.Patient stopped pain medication but ant-inflammatory. Location back pain and right knee .Patient had lumbar brace like turtle shell to avoid lifting Patient had Aggravating walking/lifting lifting. Alleviating factors rest. Coughing/sneezing-. Bowel/bladder -. Patient has no neck pain left hand . Denies nausea/tinnitus . Not specific with aggravating factors for neck. Patient has seen chiropractor. Sleeping good. Patient condition affects ADLS and housework tasks. RTW. Patient goals RTW. Patient has 25 # lifting restriction. 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 Pain Bilateral Ankle: Pain Intensity (Out of 10): 1 Right Lower Extremity: Pain Intensity (Out of 10): 2 Comment: knee Objective Objective: POSTURE: mild forward posture PALPATION: tender LS region GAIT: reciprocal pattern mild forward posture NEURO: denies paresthesia/tingling ,reflexes L3-4,L4-5 ,L5- S1 2/3 SYMMETRIES: align BUE AROM: WFL FLEXABILITY: hamstrings mod tight LUMBAR ROM: flexion min loss ,extension severe loss ,side glides min/mod tight CERVICAL ROM: flexion min loss ,extension mon loss ,rotation/lateral flexion min loss MMT: quads/hams /hip 4/5 ,ankle 5/5 ,BUE 4/5 Special Tests C/S Radiculapathy - Left Upper limb tension test: Negative C/S Radiculapathy - Right Upper limb tension test: Negative C/S Radiculapathy - Left Spurlings: Negative C/S Radiculapathy - Right Spurlings: Negative C/S Radiculapathy - Left Cervical distraction: Negative C/S Radiculapathy - Right Cervical distraction: Negative C/S Radiculapathy - Left Relief test: Negative C/S Radiculapathy - Right Relief test: Negative Sharp Dane: Negative Vertebral Artery Test: Negative Alar Ligament Test: Negative Cervical Sitting: Protrusion - Mechanical Response: No effect Cervical Sitting: Protrusion - Symptoms During Testing: No effect Cervical Sitting: Protrusion - Symptoms After Testing: No effect Cervical Sitting: Retraction - Mechanical Response: No effect Cervical Sitting: Retraction - Symptoms During Testing: No effect Cervical Sitting: Retraction - Symptoms After Testing: No effect Cervical Sitting: Retraction-Extension - Mechanical Response: No effect Cerv Sitting: Retraction-Extension - Symptoms During Testing: No effect Cerv Sitting: Retraction-Extension - Symptoms After Testing: No effect Cervical Sitting: Sidebend Right - Symptoms During Testing: No effect Cervical Sitting: Sidebend Left - Mechanical Response: No effect Cervical Sitting: Sidebend Left - Symptoms During Testing: No effect Cervical Sitting: Sidebend Left - Symptoms After Testing: No effect Cervical Sitting: Rotation Right - Mechanical Response: No effect Cervical Sitting: Rotation Right - Symptoms During Testing: No effect Cervical Sitting: Rotation Right - Symptoms After Testing: No effect Cervical Sitting: Rotation Left - Mechanical Response: No effect Cervical Sitting: Rotation Left - Symptoms During Testing: No effect Cervical Sitting: Rotation Left - Symptoms After Testing: No effect Cervical Sitting: Flexion - Mechanical Response: No effect Cervical Sitting: Flexion - Symptoms During Testing: No effect Cervical Sitting: Flexion - Symptoms After Testing: No effect L/S Slump test left side: Negative L/S Slump test right side: Negative L/S Left Straight Leg Raise: Negative L/S Right Straight Leg Raise: Negative Balance/Special Test Scores Oswestry Low Back Score: 22 Goals Goal 1:: Patient to be I with HEP for strengthening Goal Time Frame: 4-6 Weeks Goal 2:: Patient to improve lumbar ROM for function of recovery to tie shoes and RTW Goal Time Frame: 4-6 Weeks Goal 3:: Patient to improve back oswestry score by 5 points to improve QOL and function and RTW. Goal Time Frame: 4-6 Weeks Goal 4:: Patient to demonstrate 70 % improve with function ,pain and RTW Goal Time Frame: 4-6 Weeks Goal 5:: Patient to RTW with min limiations Goal Time Frame: 4-6 Weeks Rehabilitation Potential Physical Therapy Diagnosis: This patient fell of ladder sustain left L3 Compression fx with impairments of pain ,generalized weakness impairs ability to RTW Rehabilitation Potential: Good Anticipated Interventions Patient/Client Instruction: Educate patient on: Condition and Plan of Care For the Purpose of:: To decrease pain, To increase ROM, To improve muscle performance and motor function, To increase tolerance to activity/condition/position, To improve ability of physical actions for home/community/work/leisure, To improve health of tissue, To decrease soft tissue restriction, To increase flexibility/ROM and To improve tolerance to ADL's Therapeutic Exercise to Include: Strength training, Endurance training, Balance training, Body mechanics, Postural training, Flexibilty training and Dynamic Lumbar Stabilization Comment: BLE For the Purpose of:: To decrease pain, To improve muscle performance and motor function, To improve ability to perform ADL's, To improve ability of physical actions for home/community/work/leisure, To improve health of tissue, To decrease soft tissue restriction, To improve balance and To reduce risk of recurrence Text: Thank you for the opportunity to evaluate your patient. For Medicare and Medicare HMO plans, please review the plan of care and approve it. It will need to be FAXED BACK to us at [phone] for Medicare purposes. For Medicare only, by signing this I certify the plan of care. Please let me know if there are questions or concerns regarding this plan of care. Physician Signature: Date:
--- NOTE | 2024-10-01 07:55 | HP.PTDCSUM ---
Discharge Summary D/C summary: It has been my pleasure to treat CHING ZACARIAS referred by Dr. Ronak Horn DO, with the diagnosis of WEDGE COMPRESSION FRACTURE OF THIRD VERTEBRAE , LOW BACK PAIN ,CERVICAL RAD for a total of 12 visit(s). Discharge Date: Please see the following information for a summary of their discharge status. Subjective Subjective: Doing much better Pain Bilateral Ankle: Pain Intensity (Out of 10): 0 Right Lower Extremity: Pain Intensity (Out of 10): 2 Bilateral Back: Pain Intensity (Out of 10): 6 Overall Improvement % Improvement: 75 Objective Objective/Function: POSTURE: mild forward posture PALPATION: tender LS region GAIT: reciprocal pattern mild forward posture NEURO: denies paresthesia/tingling ,reflexes L3-4,L4-5 ,L5- S1 2/3 SYMMETRIES: align BUE AROM: WFL FLEXABILITY: hamstrings mod tight LUMBAR ROM: flexion min loss ,extension severe loss ,side glides min/mod tight CERVICAL ROM: flexion WFL ,extension min loss ,rotation/lateral flexion min loss MMT: quads/hams /hip 4/5 ,ankle 5/5 ,BUE 4/5 Goals Goal 1:: Patient to be I with HEP for strengthening Goal Progress: Goal Met Goal 2:: Patient to improve lumbar ROM for function of recovery to tie shoes and RTW Goal Progress: Goal Met Goal 3:: Patient to improve back oswestry score by 5 points to improve QOL and function and RTW. Goal Progress: Goal Met Goal 4:: Patient to demonstrate 70 % improve with function ,pain and RTW Goal Progress: Goal Met Goal 5:: Patient to RTW with min limiations Goal Progress: Goal Met Plan Plan: D/C D/C Information d/c sentence: If there are questions or concerns regarding this patient's physical therapy, please feel free to call me at [phone]. Thank you for the referral of this patient. Sincerely, Aldair Rodrigues, PT, Cert MDT, OCS Balance/Gait/Functional tests Balance/Special Test Scores Oswestry Low Back Score: 22 Improvement % Improvement: 75
== END 2024-10-01 13:23 | disposition home or self-care (01) ==
LOC: PT 07:00
PROVIDERS: PCP Family Medicine; Referring Provider Orthopaedic Surgery Orthopaedic Surgery of the Spine; Visit Provider Orthopaedic Surgery Orthopaedic Surgery of the Spine
DX: S32.030D Wedge compression fracture of third lumbar vertebra, subsequent encounter for fracture with routine healing (principal); M54.12 Radiculopathy, cervical region; M54.50 Low back pain, unspecified
CPT/HCPCS: 97110; 97162; 97530

== ENCOUNTER 2024-11-18 11:17 | Emergency (ER) | payer OTHER, SELFPAY ==
[2024-11-18 11:19] VITALS: BP 156/108; PULSE 102; RESP 18; TEMP 36.1; O2SAT 99; BMI 45.3
--- NOTE | 2024-11-18 11:31 | ED.VIS.LOWEX ---
HPI <JAYME Bravo - Last Filed: 11/18/24 13:32> History of Present Illness Chief Complaint: Lower Extremity Injury Narrative Narrative: 49-year-old male walking outside and slipped on wet grass and felt a pop in his right ankle. He developed swelling. He is able to walk and denies weakness or numbness or tingling. PFSH <JAYME Bravo - Last Filed: 11/18/24 13:32> PFSH Medical History Wedge compression fracture of second lumbar vertebra Lumbar compression fracture Foraminal stenosis of lumbosacral region Morbid obesity with BMI of 45.0-49.9, adult Alcohol use CPAP (continuous positive airway pressure) dependence Non-smoker Home Medications ?Medication ?Instructions ?Recorded ?Last Taken ?Type ascorbic acid (vitamin C) 500 mg 500 mg PO DAILY supplement 06/03/24 06/03/24 History chewable tablet (Acerola C) acetaminophen 500 mg tablet 1,000 mg (2 x 500 mg) PO Q8H PRN 06/22/24 Unknown Rx PAIN 1-10 #0 tabs cyclobenzaprine 5 mg tablet 5 mg PO TID 30 days #90 tabs 06/22/24 Unknown Rx losartan 25 mg tablet 25 mg PO DAILY 30 days #30 tabs 06/22/24 Unknown Rx naproxen 500 mg tablet 500 mg PO BID PRN pain 1-10 30 06/22/24 Unknown Rx days #60 tabs venlafaxine 75 mg capsule,extended 75 mg PO DAILY 30 days #30 caps 06/22/24 Unknown Rx release 24 hr hydrocodone-acetaminophen 5-325mg 1 tab PO Q6H PRN pain 3 days #12 11/18/24 Unknown Rx 5mg-325mg tabs Allergy/AdvReac Type Severity Reaction Status Date / Time Penicillins (PCN) Allergy Other Verified 10/15/21 11:24 Surgical History Hx of colonoscopy Hx of appendectomy Social History (Updated 06/14/24 @ 20:[address] Nikki Easton, DO) household members: other details: His 3 weeks prior to his fall Smoking Status: Never smoker ROS <JAYME Bravo - Last Filed: 11/18/24 13:32> ROS ED ROS Narrative Neuro: Negative for motor/sensory dysfunction. Skin: Negative for rash, abscess, or wound. Musc: Positive for right ankle pain, swelling, trauma. EXAM <JAYME Bravo - Last Filed: 11/18/24 13:32> Physical Exam Narrative Exam Narrative: CONST: Patient sitting in no acute distress. EYES: Normal inspection. SKIN: Color normal, no rash, warm, dry, intact. EXTREMITIES: Right ankle edema. Tender over the lateral malleolus without deformity or crepitus. No tenderness of the medial posterior ankle. No tenderness of the foot. No tenderness of the proximal fibula. Ankle has full range of motion which causes pain. Normal sensation. 2+ DP pulse. NEURO: Alert and answering questions appropriately. PSYCH: Normal affect. Const Vital Signs: 11/18/24 11:19 11/18/24 13:36 Temperature 96.9 F L 97.4 F L Temperature Source Temporal Pulse Rate 102 H 82 Respiratory Rate 18 18 Blood Pressure 156/108 H 130/68 H Blood Pressure Mean 124 88 Pulse Ox 99 99 Oxygen Delivery Method Room Air <Dr. Elier Devine DO - Last Filed: 11/18/24 14:02> Physical Exam Const Vital Signs: 11/18/24 11:19 11/18/24 13:36 Temperature 96.9 F L 97.4 F L Temperature Source Temporal Pulse Rate 102 H 82 Respiratory Rate 18 18 Blood Pressure 156/108 H 130/68 H Blood Pressure Mean 124 88 Pulse Ox 99 99 Oxygen Delivery Method Room Air MDM <JAYME Bravo - Last Filed: 11/18/24 13:32> [facility] Narrative Medical decision making narrative: Differential: Ankle sprain versus fracture 49-year-old male rolled his right ankle and has lateral ankle pain and swelling. Neurovascularly intact. Achilles intact. No foot tenderness. X-ray shows distal fibula fracture above the ankle mortise. The mortise is still aligned. Case was discussed with Dr. Nina who recommended a posterior splint which was placed by the attending. Patient given crutches, Oakwood, and orthopedic follow-up and was discharged in stable condition. Radiography Diagnostic Testing: Clinical Impression(s) from Imaging Studies Ankle X-Ray 11/18/24 12:00 IMPRESSION: Comminuted oblique fracture of the distal fibula with overlying soft tissue swelling. Reading Location: [facility] ED attending interpretation of right ankle shows an oblique distal fibula fracture above the mortise. Mortise alignment maintained. <Dr. Elier Devine, DO - Last Filed: 11/18/24 14:02> [facility] History & Record Review Discussion w/independent historian: Patient Radiography Diagnostic Testing: Clinical Impression(s) from Imaging Studies Ankle X-Ray 11/18/24 12:00 IMPRESSION: Comminuted oblique fracture of the distal fibula with overlying soft tissue swelling. Reading Location: [facility] Management Discussion w/another healthcare provider: Reject Opener And Filler (Dr Nina) Treatment and Re-Evaluation Narrative: I have personally performed a face to face assessment of the patient and have reviewed the SOTO Note. I performed a substantive portion of the visit including all aspects of the following. My ma findings include: History is 49-year-old male sustained an inversion injury to the right ankle due to wet grass. He states he felt a pop. He notes significant swelling just above the ankle joint. He has been able to bear weight but painful. Exam is patient has swelling just above the lateral medial malleolus. I do not see any open areas of the skin. He has significant tenderness over the lateral distal fibula. There is no fibular head tenderness. No fifth metatarsal tenderness. Neurovascular intact Medical Decison Making my independent interpretation of the plain films of the right ankle is a distal fibular fracture. The mortise appears intact. Fracture line extends right to the mortise at an oblique angle. I spoke with Dr. Nina from orthopedics. He will be placed in a well-padded Ortho-Glass posterior and stirrup splint. Neurovascularly intact pre and post application. He was given crutches advised to be nonweightbearing. He will follow-up in the office Discharge Plan Triage Chief Complaint: Lower Extremity Injury ED Midlevel Provider: Juliane Pelayo ED Provider: Elier Devine Dx/Rx/DC Orders Clinical Impression: Closed fracture of distal end of right fibula Instructions: ED Ankle Fracture Prescriptions: New hydrocodone-acetaminophen 5-325 mg tablet 1 tab PO Q6H PRN (Reason: pain) 3 Days Qty: 12 0RF No Action ascorbic acid (vitamin C) [Acerola C] 500 mg tablet,chewable 500 mg PO DAILY venlafaxine 75 mg Capsule,Extended Release 24hr 75 mg PO DAILY 30 Days Qty: 30 0RF acetaminophen 500 mg Tablet 1,000 mg PO Q8H PRN (Reason: PAIN 1-10) Qty: 0 0RF losartan 25 mg Tablet 25 mg PO DAILY 30 Days Qty: 30 0RF naproxen 500 mg Tablet 500 mg PO BID PRN (Reason: pain 1-10) 30 Days Qty: 60 0RF cyclobenzaprine 5 mg Tablet 5 mg PO TID 30 Days Qty: 90 0RF Primary Care Provider: Rajni Newton Referrals: Aleksander Nina MD [Non-Staff] - Rajni Newton MD [Primary Care Provider] - Activity Restrictions/Additional Instructions: Use the crutches and keep the weight off your leg. I prescribed Oakwood as needed for pain. This medication can cause sedation, nausea, and constipation. I recommend a stool softener while using it. If you do not need it you can take Tylenol and Motrin. Follow-up with the orthopedic doctor. Print Language: Yi Disposition Disposition: Home, Self Care Discharge Date/Time: 11/18/24 13:42
--- NOTE | 2024-11-18 12:00 | RAD_ITS ---
EXAM: XR Right Ankle Complete, 3 or More Views CLINICAL INDICATION: PAIN TECHNIQUE: Frontal, lateral and oblique views of the right ankle. COMPARISON: No relevant prior studies available. FINDINGS: BONES/JOINTS: Comminuted oblique fracture of the distal fibula with overlying soft tissue swelling. No dislocation. SOFT TISSUES: See above. RAD/Ankle min 3 Views IMPRESSION: Comminuted oblique fracture of the distal fibula with overlying soft tissue swe lling. Reading Location: [facility]
[2024-11-18 13:36] VITALS: BP 130/68; PULSE 82; RESP 18; TEMP 36.3; O2SAT 99
== END 2024-11-18 13:42 | disposition home or self-care (01) ==
PROVIDERS: Emergency Provider Emergency Medicine; PCP Family Medicine; Visit Provider Emergency Medicine
DX: S82.831A Other fracture of upper and lower end of right fibula, initial encounter for closed fracture (principal); W19.XXXA Unspecified fall, initial encounter
CPT/HCPCS: 73610; 99283

== ENCOUNTER 2024-11-25 09:49 | Day surgery (SDC) | payer OTHER, SELFPAY ==
--- NOTE | 2024-11-23 22:15 | HP.PCM_ITS ---
History and Physical History and Physical? Patient Name: Moustapha Garcia : 1975From:? REID FINE PA-C? DATE OF PRE-OPERATIVE EXAM: 11/22/2024 DATE OF SURGERY:? 11/25/2024 SCHEDULED PROCEDURE:? Open reduction internal fixation right distal fibula fracture with possible syndesmosis repair HISTORY OF PRESENT ILLNESS: Preoperative history and physical exam was performed on November 22, 2024.? This is a 49-year-old male who sustained a right ankle injury when he slipped in the grass twisting his ankle.? Patient was seen at [facility] emergency room in which she was diagnosed with a distal fibula fracture.? He was placed in a splint and referred for orthopedic evaluation.? Patient was using crutches and still placing weight on the ankle.? He has pain at worst is an 8/10, on average 4/10, at best 3/10.? There is been not numbness and tingling into the lower extremity.? He has had swelling.? He has been icing.? Patient denies prior problems to the right ankle before this injury.? He has been using hydrocodone/acetaminophen from the emergency room.? He has also been on meloxicam.? Patient had increased pain with going up and down stairs and walking.? He initially attempted walking on the ankle but had to stop due to the increased pain.? Medical history is pertinent for hypertension, sleep apnea, depression/anxiety, and chronic low back pain.? He denies any history of DVT or pulmonary embolism.? No recent fevers, chills, recent infections.? Denies chest pain or shortness of breath.? After discussion with Dr. Jaydon Brewer, the patient does wish to proceed with an open reduction internal fixation right distal fibula fracture with possible syndesmosis repair.? Patient was given orders for CBC and BMP as well as EKG preoperatively. REVIEW OF SYSTEMS: Review Of Systems: Constitutional: Denies change in appetite, fever and weight change. Cardiovasular: Denies chest pain, heart murmur and irregular heartbeat. Respiratory: Reports sleep apnea, but denies cough, pneumonia, shortness of breath, tuberculosis and wheezing. Gastrointestinal: Denies constipation, diarrhea, heartburn, nausea, rectal itching, bloody stools and vomiting. Genitourinary: Denies incontinence. Musculoskeletal: Reports gait disturbance, pain, trouble walking and weakness, but denies leg swelling. Skin: Denies Raynaud's, history of shingles and tattoo. Neurological: Denies ambulatory dysfunction, dizziness, numbness/tingling and tremor. Psychiatric: Denies anxiety, insomnia and stress. Hematologic/Lymphatic: Denies anemia, bleeding/bruising tendency and past transfusion. Reviewed and updated. PAST MEDICAL HISTORY: Advance Care Plan: Other Directive, POA Effective Date: 10/15/2017 Other Directive, LIVING WILL Effective Date: 10/15/2017 Past Medical History: Medical Problems: Sleep Apnea, Covid- 19, High Blood Pressure, Depression, anxiety, chronic low back pain Accidents: Other - (06/04/2024) - fell off of a ladder -? fractured 2? vertebrae - L1 - L2?? Fracture - (11/18/2024) right ankle fracture - slipped on grass and fell - [facility] ER? Surgical Hx: None Anesthesia Complications: None Assistive Devices: Cpap, Glasses - reading? Reviewed and updated. 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 Personal Habits:? Cigarette Use: Former.Smokeless Tobacco: Never Used Smokeless Tobacco.E-Cigarette Use: Never used.Alcohol: Occasionally.Drug Use: Denies Use.Enjoy Exercising: Exercises 1-3 x/month. Reviewed and updated. VITALS: Ht: 72 Wt: 340lb Wt k.224 BMI: 46.1 BP: 126/80 Pulse: 76 T: 97.6 T: 36.4C Pain Level: 4/10 O2SatR: 98 ALLERGIES: Penicillin - As a child? MEDICATIONS: Oxycodone HCL 5 mg take 1-2 tablets by mouth every 6 hours as needed, Famotidine 20 mg 1 tablet by mouth once daily, Vitamin D3 25 mcg (1000 Ut) 1 po qdaily, Hydrocodone Bitartrate/Acetaminophen 5-325 mg 1 tablet every 6 hours, Duloxetine HCL 60 mg 1 po qdaily, Losartan Potassium 50 mg 1 po qdaily, Meloxicam 15 mg 1 po qdaily, Methocarbamol 500 mg 1 po qdaily, Valacyclovir HCL 1 gm take 1 tablet by mouth twice a day PRE-OP EXAM:? General appearance:NORMAL? ? ? Other: Eyes: Conjunctivae and lids: NORMAL? Pupils: ERR Ears, Nose, Mouth, and Throat: NORMAL? Other: Inspection of lips, teeth and gums: NORMAL? ?Other: Neck: Examination of neck: no masses noted. Respiratory: Assessment of respiratory effort: NORMAL? ?Other: ?Auscultation of lungs: clear to auscultation no wheezes, rhonchi or rales. Cardiovascular:? Auscultation of heart: regular rate and rhythm, no murmurs, gallops or rubs. PHYSICAL EXAMINATION: On exam patient currently is in a splint from the emergency room.? This was removed in which there was no abrasions or wounds.? There is significant swelling and ecchymosis.? Tenderness to palpation along the distal fibula at the fracture site on the right ankle.? Nontender to palpation throughout the right midfoot and toes.? No significant tenderness over the medial malleolus.? Range of motion was deferred due to fracture.? He was able to wiggle his toes.? Sensation intact to light touch to saphenous, sural, superficial/deep peroneal, and tibial distribution. IMAGING STUDIES: ?[facility] from [facility] were reviewed of the right ankle on November 18, 2024.? X-rays did reveal a displaced Cueva B distal fibula fracture with mild medial joint space widening.? No appreciable fracture of the tibia area no lytic or blastic lesions. X-rays were obtained at [facility] of the right ankle including AP, oblique, lateral, and gravity stress were obtained.? [place] stress did identify white needing of the medial joint consistent with syndesmosis injury.? Patient has mildly displaced Cueva B distal fibula fracture.? No lytic or blastic lesions.? X-rays were discussed reviewed with Dr. Cristopher Brewer IMPRESSION: 1.? Right ankle displaced Cueva B distal fibula fracture with syndesmosis injury 2.? Hypertension 3.? Anxiety/depression 4.? Chronic low back pain 5.? Sleep apnea 6.? Morbid obesity with BMI 46.1 PLAN: Dr. Jaydon Brewer and myself did discuss and review with the patient all treatment options including surgical versus nonsurgical options.? I will continue plan established by Dr. Jaydon Brewer.? Patient does wish to proceed with the above-stated procedure.? Potential risks, benefits, and complications of the procedure were discussed in detail including but not limited to , infection, nerve and blood vessel damage, persistent pain, numbness, tingling, paresthesias, blood clot, pulmonary embolism, and requirement for possible further surgery.? The patient expressed full understanding and has no further questions for the doctor.? Patient does agree to proceed with the above-stated procedure and has signed the surgery consent form. POST-OP MEDICATION PLAN: Pain Medications: Patient was given prescription for oxycodone that will be used postoperatively.? Patient was instructed that he should never combined to narcotics and he will not use the hydrocodone/acetaminophen at home.? He has been instructed to use extra strength Tylenol 500 mg 2 tablets 3 times daily.? He will discontinue the meloxicam preoperatively but will resume this on postoperative day #1.? He was given prescription for famotidine to take while on aspirin for DVT prophylaxis.?? DVT Prophylaxis Plan: Patient has been instructed to start aspirin 81 mg twice daily preoperatively.? He will be nonweightbearing on the right lower extremity and we discussed risks of DVT following fracture and surgery.? Patient will hold the aspirin on day of surgery.? He will resume aspirin 81 mg twice daily with food for 6 weeks postoperatively.? Patient denies past history of DVT or pulmonary embolism. This dictation was created using voice recognition software. Phonetic and/or grammatical errors may exist. ___? I have re-examined the patient.? There are no clinical changes since date of exam. ___? See progress notes for changes. ___? Dictated on admission Date: ? ? ?Time: Signature:
[2024-11-25] VITALS (7 sets, daily range): BP systolic 118–138; BP diastolic 69–91; PULSE 79–92; RESP 16–18; TEMP 36.1–36.6; O2SAT 92–100; BMI 45.1
--- NOTE | 2024-11-25 10:22 | PCM.PRE.AN2 ---
ASA Classification* ASA Classification ASA Classification: 2 Assessment & Plan Anesthesia* Anesthesia Assessment Anesthesia Assessment: Discussed sedation and/or anesthesia options, risks, benefits, and alternatives with patient/parents/legal guardian/POA. Questions invited. The patient/parents/legal guardian/POA seems to understand and agrees to proceed with anesthesia plan. Reviewed the physical assessment, medical history, allergy history and patient home medications list prior to surgery/procedure/anesthetic and documented any changes. Performed airway and anesthesia risk assessments. Anesthesia Type Anesthesia Type: General and Block Anesthesia Focused Assessment* Airway Assessment Mouth opens: >3 cm Mallampati Score: II Labs Anesthesia Preop lab: CBC WBC 7.6 K/mm3 (4.4-11.0) 08/04/24 10:08/04/24 RBC 4.93 M/mm3 (4.6-6.2) 08/04/24 10:08/04/24 Hgb 14.4 g/dL (13.0-16.5) 08/04/24 10:08/04/24 Hct 43.0 % (40-54) 08/04/24 10:17 08/04/24 Plt Count 336 K/mm3 (150-450) 08/04/24 10:17 08/04/24 CHEMISTRY Potassium 4.2 mmol/L (3.5-5.1) 08/04/24 10:17 08/04/24 Sodium 138 mmol/L (136-145) 08/04/24 10:17 08/04/24 BUN 9 mg/dL (7-18) 08/04/24 10:17 08/04/24 Creatinine 0.80 mg/dL (0.70-1.30) 08/04/24 10:17 08/04/24 Glucose 108 mg/dL (74-106) H 08/04/24 10:17 08/04/24 TSH 1.86 uIU/mL (0.358-3.74) 03/04/12 08:05 03/04/12 COAG PT 13.7 SECONDS (11.7-14.9) 06/07/24 05:55 06/07/24 Pre-Assessment Diagnosis/Proposed Procedure Planned Operative Procedure(s): (R) OPEN REDUCTION INTERNAL FIXATION RIGHT ANKLE FRACTURE WITH POSSIBLE SYNDESMOSIS Anesthesia History Anesthesia History - pump erector helper: Anesthesia History - pump erector helper Hx Hospitalization Yes: 05/2024 FRACTURED 11/23/24 09:16 VERTEBRAE Any Problems With Anesthesia No 11/23/24 09:16 Cholinesterase deficiency No 11/23/24 09:16 You/Your Family Experience No 11/23/24 09:16 fever (hyperthermia) with Relationship Recent Exposure to Contagious No 06/07/24 22:51 Disease Does patient have nerve No 11/23/24 09:16 stimulator Patient instructed to have device shut off --Does patient have Pacemaker or ICD? When Was Last Pacemaker Check QUESTION #4 FULL TEXT: You/Your Family Experience fever (hyperthermia) with Anesthesia Last Oral Intake Last Oral intake: Last Oral Intake NPO since Meds taken in AM with sips of water? Meds patient instructed to take am of surgery PONV PONV - pump erector helper: PONV - pump erector helper Female No 11/23/24 09:16 HX of Motion Sickness No 11/23/24 09:16 HX of N/V After Surgery No 11/23/24 09:16 Non-Smoker Yes 11/23/24 09:16 Duration of Surgery greater Yes 11/23/24 09:16 than 60 minutes Number of Risk Factors 2 11/23/24 09:16 PONV Score Moderate Risk 11/23/24 09:16 Height & Weight Height & Weight: Anesthesia: Height & Weight Height 6 ft 1 in 11/18/24 11:19 Respiratory Assessment Respiratory Assessment - pump erector helper: Respiratory Tract Infection Hx - pump erector helper Hx Respiratory Tract Infection No 11/23/24 09:16 STOP Sleep Apnea STOP Sleep Apnea - pump erector helper: STOP Sleep Apnea - pump erector helper Hx Hypertension Yes: CONTROLLED WITH MED 11/23/24 09:16 Hx Sleep Apnea Yes 11/23/24 09:16 CPAP Yes 11/23/24 09:16 BIPAP No 11/23/24 09:16 Do you snore loudly (louder than talking or can be heard Do you often feel tired/ fatigued/ sleepy during daytime? Has anyone observed you stop breathing during sleep? STOP Results Positive 11/23/24 09:16 QUESTION #5 FULL TEXT : Do you snore loudly (louder than talking or can be heard through closed doors)? 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 Specify any problems Hx of Preganancy in last 3 N/A 11/23/24 09:16 Months Nurse Filling Out Transfusion NBUCHER 11/23/24 09:16 & Questions: Date: 11/23/24 11/23/24 09:16 Time: 09:18 11/23/24 09:16 Patient unable to answer at this time (ie. confused, unrespo /Reproduction History /Reproductive History - pump erector helper: /Reproductive Hx- pump erector helper Hx Now No 11/23/24 09:16 Gestational Age (in weeks): EDC: Hx Hx Para Hx Section SAB No 11/23/24 09:16 Active Medications Active Medications: Current Medications Generic Name Dose Route Start Last Admin Trade Name Freq PRN Reason Stop Dose Admin Cefazolin Sodium 3 gm/ Sodium 115 mls @ 150 mls/hr 11/25/24 11:50 Chloride IV 11/25/24 12:35 INTRAOP ONE Lactated Ringer's 1,000 mls @ 15 mls/hr 11/25/24 10:15 IV .Q48H MARYAN PFSH Medical History Back pain Sleep apnea Foraminal stenosis of lumbosacral region Morbid obesity with BMI of 45.0-49.9, adult Wedge compression fracture of second lumbar vertebra Lumbar compression fracture Alcohol use CPAP (continuous positive airway pressure) dependence Non-smoker Home Medications ?Medication ?Instructions ?Recorded ?Last Taken ?Type acetaminophen 500 mg tablet 1,000 mg (2 x 500 mg) PO Q8H PRN 06/22/24 11/25/24 Rx PAIN 1-10 #0 tabs aspirin 81 mg capsule 162 mg PO QDAY 11/23/24 11/24/24 History duloxetine 60 mg capsule,delayed 60 mg PO DAILY 11/23/24 Unknown History release famotidine 20 mg tablet (Acid 20 mg PO DAILY 11/23/24 Unknown History Controller) losartan 50 mg tablet 50 mg PO DAILY 11/23/24 11/24/24 History meloxicam 15 mg tablet 15 mg PO DAILY 11/23/24 11/21/24 History methocarbamol 500 mg tablet 500 mg PO TID 11/23/24 Unknown History oxycodone 5 mg tablet 5 - 10 mg PO Q4H PRN PRN pain 11/23/24 Unknown History Allergy/AdvReac Type Severity Reaction Status Date / Time Penicillins (PCN) Allergy Other Verified 11/25/24 10:15 Surgical History Hx of colonoscopy Hx of appendectomy Social History household members: other details: His 3 weeks prior to his fall Smoking Status: Never smoker Review of Systems (Anesthesia) ROS Narrative System reviewed and no additional complaints, except as documented.
[2024-11-25] MEDS: Lactated Ringers 1,000 ML 15 ML IV (10:35)
--- NOTE | 2024-11-25 11:10 | RAD_ITS ---
PROCEDURE: ANKLE MIN 3 VIEWS 11/25/2024 REASON FOR EXAM: ORIF RIGHT ANKLE FX TECHNIQUE: 6 images of the right ankle were obtained intraoperatively during ORIF of right ankle fracture. COMPARISON: Right ankle, 11/18/2024. FINDINGS: Status post screw and plate repair of a distal fibular fracture. Status post tight rope procedure. Fluoro time: 21.6 seconds. Cumulative dose: 1.34 mGy RAD/Ankle min 3 Views IMPRESSION: As per findings. Reading Location: [place] [id number]
[2024-11-25] MEDS: Cefazolin 3 GM in 0.9% Normal Saline (100mL Bag) 100 ML IV (11:26)
[2024-11-25] MEDS: Bupiv/Epi 0.25% 30 ML Vial (12:30)
--- NOTE | 2024-11-25 12:52 | PCM.OPRPT ---
Operative Report (Standard) Operative Information Date of Procedure: 11/25/24 Pre-Operative Diagnosis: Right ankle lateral malleolus fracture Post-Operative Diagnosis: 1. Right ankle lateral malleolus fracture 2. Right ankle syndesmosis instability Surgery/Procedure Performed: 1. Open reduction internal fixation right lateral malleolus 2. Open reduction internal fixation right ankle syndesmosis photo printer: Yes Golf Superintendent: Brown Thomas Tasks completed by ophthalmology assistant: Opening & closing, Implanting device and Hemostasis: Electrocautery Additional social human services assistants?: No Type of Anesthesia: General/Regional RN Documented Start/Stop Times: Operation Date: 11/25/24 11:50 Case Time Into Pre-Op 11/25/24 10:01 Anesthesia Start 11/25/24 11:23 Into Room 11/25/24 11:23 Procedure Start 11/25/24 11:43 Procedure End 11/25/24 12:31 Anesthesia End 11/25/24 12:39 Out of Room 11/25/24 12:39 Into Recovery 11/25/24 12:40 Procedure Start Time: 11:43 Procedure Stop Time: 12:31 Select all DRAINS/GRAFTS/IMPLANTS that apply: Implanted device Implanted device details: Arthrex titanium 7 hole third tubular plate with combination of cortical and cancellous screws, 3.0 mm lag screw, Arthrex tight rope 2 Estimated Blood Loss: 10 cc Specimen collected: No Description of surgery: Patient was seen in preoperative holding area. They were identified by name, medical record number, date of . The operative extremity was marked with a surgical marker. We confirmed informed consent with the patient and all questions were answered to her satisfaction. In the preoperative holding area, a popliteal block was administered by the anesthesia staff. At time of the procedure, patient was brought to the operative suite and positioned supine on a standard operating table. All bony prominences were well-padded. General anesthesia was administered. After adequate anesthesia, a well-padded pneumatic tourniquet was applied to the right upper thigh. A large bump was placed in the patient's right hip. The right lower extremity was elevated on bath blankets for fluoroscopic imaging and access to the limb during surgery. We secured this with tape as well as the nonoperative extremity. We then performed a timeout with all parties in attendance and agree with the side, site, operation to be performed. No concerns were voiced and elected to proceed. 3 g Ancef was administered prior to incision by the anesthesia staff. We then prepped and draped the operative extremity using a ChloraPrep. While stabilizing the ankle, the operative extremity was exsanguinated with an Esmarch bandage. Tourniquet was inflated to 275 mmHg for approximately 30 minutes. Incision was planned over the lateral malleolus and distal fibular shaft centered over the level of the fracture. Skin was sharply incised with a 15 blade scalpel. Superficial bleeders were cauterized with Bovie cautery. We then bluntly dissected to the level of the fascia. Fascia was opened with Bovie cautery. We examined closely for the superficial peroneal nerve which was not encountered throughout surgery. We bluntly dissected down to the level of the periosteum. Hohmann retractors were placed after fracture was encountered as well as the fibula. Periosteum was elevated at the level of the fracture approximately 2 to 3 mm. A [id number] reduction tenaculum was used to reapproximate the fracture site with excellent anatomic reduction. We then prepared for a lag screw for fixation. We first planned our lag screw perpendicular to the fracture site anterior superior to posterior inferior. We overdrilled the near cortex with a 3.0 mm drill bit. We then withdrew the drill bit and drilled the far cortex with a 2.5 mm drill bit. We then measured and placed an appropriately sized lag by technique 3.0 mm cortical screw with excellent compression across the fracture site. Reduction tenaculum was removed with excellent security at the fracture site. We then selected our plate on the back table. We ensured that we had 3 screws above and below the fracture site. A 7 hole one third tubular plate was selected for after confirming on fluoroscopy. Plate was contoured to bone. 3 bicortical screws were placed proximal to the fracture site. 2 cancellous screws were placed distal to the fracture site. The remaining hole distal the fracture site was left open for possible syndesmosis fixation. Orthogonal fluoroscopy demonstrated anatomic reduction and stable fracture of the lateral malleolus. A cotton test and external rotation Xismox stress test was performed demonstrated syndesmotic instability. I proceeded with tight rope fixation for the syndesmosis. First a K wire was placed parallel to the tibial plafond exiting in the mid tibia and the orientation of the syndesmosis. I overdrilled with a cannulated drill bit across the 4 cortices. A tight rope was then placed and flipped along the medial distal tibial cortex. Tight rope was sequentially tightened with excellent compression and stability across the syndesmosis. Repeat external rotation stress test and cotton test were normal. Orthogonal fluoroscopy was obtained for final images. Wound was irrigated with saline copiously. Tourniquet was deflated. Hemostasis was achieved with Bovie cautery. Fascial layer was reapproximated with interrupted [id number] 2-0 Vicryl suture. Dermal layer was reapproximated buried 2-0 Vicryl suture. Skin was finally reapproximated with interrupted horizontal mattress 3-0 nylon suture. Bulky sterile compression dressing was applied. Patient was placed in a 3 sided AO type short leg fiberglass splint in maximal dorsiflexion. Field block was administered with 20 cc total quarter percent bupivacaine prior to closure. Patient was safely explained the operative suite and transferred to his gurney and subsequently PACU in stable condition after being awakened from anesthesia uneventfully. He tolerated the procedure well without apparent complication. Post Operative Plan: Weightbearing: Nonweightbearing operative extremity x 6 weeks Antibiotics: 3 g Ancef x 1 dose preoperatively DVT Prophylaxis: Aspirin 81 mg twice daily for DVT prophylaxis x 6 weeks Fenton: None Dressing: Maintain splint, keep it clean dry and intact until follow-up X-Rays: 2 weeks postop in the office in splint Pain Medication: Oxycodone Rx upon discharge Follow-up: 2 weeks post-operatively in the office Surgical Findings: Cueva B lateral malleolus fracture with syndesmosis instability noted after fibular fixation. Complications Complications: No Admit VTE Documentation VTE Present on Admission: No VTE Mechan Device Prophylaxis: SCD's VTE Pharm Prophylaxis ordered?: Yes
--- NOTE | 2024-11-25 13:49 | PCM.POST.ANE ---
Anesthesia: Postop Eval I Current Vital Signs Temperature: 97 F Pulse Rate: 83 Blood Pressure: 118/69 Respiratory Rate: 18 Pulse Ox: 98 Oxygen Delivery Method: Room Air Assessment Airway patent: Yes Spontaneous unlabored respirations: Yes Mental status: Awake nausea: No Vomiting: No Anesthesia Complication: No Fluid Hydration Crystalloid volume administer (ml): 300 Total IV fluid infused: 300 Progress Note Anesthesia document: Postop Eval 1 completed: Yes
--- NOTE | 2024-11-25 14:52 | PCM.POSTANE2 ---
Anesthesia Postop Eval I Sum Postop Eval Completion status Anesthesia document: Postop Eval 1 completed: Yes Anesthesia Postop Eval I Summary Anesthesia Postop Eval I Summary: Anesthesia Postop Eval I: Assessment Summary Airway patent Yes 11/25/24 13:50 Spontaneous unlabored Yes 11/25/24 13:50 respirations Mental status Awake 11/25/24 13:50 nausea No 11/25/24 13:50 Vomiting No 11/25/24 13:50 Anesthesia Postop Eval I: Fluid Summary Crystalloid volume administer 300 11/25/24 13:50 (ml) Colloids volume administered ( ml) Blood Product volume administered (ml) Total IV fluid infused 300 11/25/24 13:50 Anesthesia Postop Eval I: Summary Notes Anesthesia Complication No 11/25/24 13:50 Anesthesia Complication Comment: Post-operative progress note Anesthesia: Postop Eval II Evaluation Mental status: Awake Pain Level: 0 nausea: No Vomiting: No
== END 2024-11-25 14:08 | disposition home or self-care (01) ==
LOC: SDC 09:50 → AC 09:50
PROVIDERS: PCP Family Medicine; Referring Provider Student in an Organized Health Care Education/Training Program; Visit Provider Student in an Organized Health Care Education/Training Program
PROC: (CPT 27792; principal; 2024-11-25 11:30)
DX: S82.61XA Displaced fracture of lateral malleolus of right fibula, initial encounter for closed fracture (principal); E66.01 Morbid (severe) obesity due to excess calories; Z68.42 Body mass index [BMI] 45.0-49.9, adult; F32.A Depression, unspecified; I10 Essential (primary) hypertension; F41.9 Anxiety disorder, unspecified; M25.371 Other instability, right ankle; G47.30 Sleep apnea, unspecified; Z79.82 Long term (current) use of aspirin; Z79.899 Other long term (current) drug therapy; X58.XXXA Exposure to other specified factors, initial encounter
CPT/HCPCS: 27792; 64450; 01480; 73610; 76000; C1713; J2405